=== PATIENT | female | born 1960 | race Caucasian/White ===

== ENCOUNTER 2020-04-30 19:44 | Inpatient (IN) | payer MEDICARE, OTHER ==
--- OUTSIDE RECORDS SUMMARY | 2020-04-30 19:47 | XMS REPORT | Clinical Summary ---
:1960 Author Organization [facility] Address [address] [place] [address] Care Team Providers Name Role Phone You Martinez MD Primary Care Provider Allergies Active Allergy Reactions Severity Noted Date Comments Tocilizumab 10/12/2015 Infliximab 10/12/2015 Sulfasalazine 10/12/2015 intolerant Medications Medication Sig Dispensed Refills Start End Date Status Date metoprolol Take 100 mg by 0 Acti ve succinate XL mouth daily. (TOPROL-XL) 100 MG 24 hr tablet folic acid TAKE 1 TABLET 30 tablet 2 Activ e (FOLVITE) 1 MG BY MOUTH ONCE 8 tablet DAILY metFORMIN Take 500 mg by 0 Activ e (GLUCOPHAGE) 500 mouth 2 (two) mg tablet times a day with meals. empagliflozin Take 10 mg by 0 Ac tive (JARDIANCE) 10 mg mouth daily. tablet tablet ondansetron Take 1 tablet 30 tablet 3 Acti ve (ZOFRAN) 8 MG (8 mg total) by 0 tablet mouth every 8 (eight) hours as needed for nausea or vomiting. upadacitinib Take 1 tablet 30 tablet 1 Act jayleen (Rinvoq) 15 mg (15 mg total) 0 tablet extended by mouth daily. release 24 hr ER tablet eszopiclone TAKE 1 TABLET 30 tablet 0 12/20/19 Acti ve (LUNESTA) 3 mg BY MOUTH 0 21 tablet NIGHTLY FOR 180 DAYS, TAKE IMMEDIATELY BEFORE BEDTIME rOPINIRole Take 1 tablet 30 tablet 3 Activ e (REQUIP) 2 MG (2 mg total) by 0 tablet mouth nightly. ondansetron TAKE 1 TABLET 30 tablet 0 Acti ve (ZOFRAN) 8 MG BY MOUTH EVERY 0 tablet 8 HOURS NEEDED FOR NAUSEA/VOMITING predniSONE 1-2 tablets 180 tablet 0 02/25/20 Active (DELTASONE) 5 mg daily 0 21 tablet predniSONE Take 1-2 60 tablet 1 02/24/20 Active (DELTASONE) 10 mg tablets daily 0 21 tablet as needed for flare up. acetaminophen-code chronic pain, 240 tablet 0 Active ine (TYLENOL WITH Moderate-Severe 0 21 CODEINE #4) 300-60 Chronic Pain. mg per TAKE 2 TABLETS tabletIndications: BY MOUTH 4 chronic pain, TIMES DAILY Moderate-Severe NEEDED FOR Chronic Pain MODERATE PAIN OR SEVERE PAIN FOR UP TO 30 DAYS ondansetron Take 1 tablet 30 tablet 3 07/23/19 Disc ontinued (ZOFRAN) 8 MG (8 mg total) by 9 20 (Reorder) tablet mouth every 8 (eight) hours as needed for nausea or vomiting. rOPINIRole TAKE 1 TABLET 30 tablet 0 06/17/19 Disco ntinued (REQUIP) 2 MG BY MOUTH AT 9 20 tablet BEDTIME predniSONE TAKE 4 TABLETS 120 tablet 0 06/04/19 Dis continued (DELTASONE) 10 mg BY MOUTH DAILY 9 20 tablet eszopiclone Take 1 tablet 30 tablet 3 07/13/19 Disc ontinued (LUNESTA) 3 mg (3 mg total) by 9 20 (Reorder) tablet mouth nightly for 180 days. Take immediately before bedtime predniSONE 1-2 tablets 180 tablet 1 08/25/19 Discon tinued (DELTASONE) 5 mg daily 9 20 (Re order) tablet ondansetron TAKE 1 30 tablet 0 07/23/19 Disconti nued (ZOFRAN) 8 MG TABLET(S) BY 9 20 tablet MOUTH EVERY 8 HOURS NEEDED FOR NAUSEA/VOMITING acetaminophen-code Take 1 tablet 120 tablet 0 Discontinued ine (TYLENOL WITH by mouth every 9 20 (Reorder) CODEINE #3) 300-30 6 (six) hours mg per as needed for tabletIndications: moderate pain acute pain, or severe pain chronic pain for up to 30 days .Acute Pain, chronic pain. acetaminophen-code Take 1 tablet 120 tablet 0 Discontinued ine (TYLENOL WITH by mouth every 0 20 (Dose CODEINE #3) 300-30 6 (six) hours adjustment) mg per as needed for tabletIndications: moderate pain acute pain, or severe pain chronic pain for up to 30 days .acute pain, chronic pain. codeine 60 MG Take 1 tablet 120 tablet 0 05/27/19 D iscontinued tabletIndications: (60 mg total) 0 20 (Reorder) chronic pain by mouth every 6 (six) hours as needed for moderate pain for up to 90 days .chronic pain. Max Daily Amount: 240 mg codeine 60 MG Take 1 tablet 120 tablet 0 05/27/19 D iscontinued tabletIndications: (60 mg total) 0 20 chronic pain by mouth every 6 (six) hours as needed for moderate pain or severe pain for up to 90 days .chronic pain. Max Daily Amount: 240 mg acetaminophen-code Take 1 tablet 120 tablet 0 Discontinued ine (TYLENOL WITH by mouth every 0 20 (Reorder) CODEINE #4) 300-60 4 (four) hours mg per as needed for tabletIndications: moderate pain chronic pain for up to 90 days .chronic pain. predniSONE TAKE 4 TABLETS 120 tablet 0 07/05/19 Dis continued (DELTASONE) 10 mg BY MOUTH DAILY 0 20 tablet acetaminophen-code Take 1 tablet 120 tablet 0 Discontinued ine (TYLENOL WITH by mouth every 0 20 (Reorder) CODEINE #4) 300-60 4 (four) hours mg per as needed for tabletIndications: moderate pain acute pain, for up to 90 chronic pain days .acute pain, chronic pain. rOPINIRole TAKE 1 TABLET 30 tablet 0 07/12/19 Disco ntinued (REQUIP) 2 MG BY MOUTH AT 0 20 tablet BEDTIME predniSONE TAKE 4 TABLETS 120 tablet 0 07/28/19 Dis continued (DELTASONE) 10 mg BY MOUTH DAILY 0 20 tablet acetaminophen-code Take 1 tablet 120 tablet 1 Discontinued ine (TYLENOL WITH by mouth every 0 20 (Reorder) CODEINE #4) 300-60 4 (four) hours mg per as needed for tabletIndications: moderate pain chronic pain or severe pain for up to 90 days .chronic pain. rOPINIRole TAKE 1 TABLET 30 tablet 3 01/14/20 Disco ntinued (REQUIP) 2 MG BY MOUTH AT 0 20 (Reo rder) tablet BEDTIME eszopiclone Take 1 tablet 30 tablet 1 12/20/19 Disc ontinued (LUNESTA) 3 mg (3 mg total) by 0 20 tablet mouth nightly for 180 days. Take immediately before bedtime ondansetron TAKE 1 TABLET 30 tablet 0 08/30/19 Disc ontinued (ZOFRAN) 8 MG BY MOUTH EVERY 0 20 tablet 8 HOURS NEEDED FOR NAUSEA/VOMITING predniSONE TAKE 4 TABLETS 120 tablet 0 10/15/19 Dis continued (DELTASONE) 10 mg BY MOUTH DAILY 0 20 (Reorder) tablet predniSONE 1-2 tablets 180 tablet 1 11/02/19 Discon tinued (DELTASONE) 5 mg daily 0 20 (Re order) tablet ondansetron TAKE 1 TABLET 30 tablet 0 10/06/19 Disc ontinued (ZOFRAN) 8 MG BY MOUTH EVERY 0 20 tablet 8 HOURS NEEDED FOR NAUSEA/VOMITING acetaminophen-code Take 1 tablet 120 tablet 1 Discontinued ine (TYLENOL WITH by mouth every 0 20 (Dose CODEINE #4) 300-60 4 (four) hours adjustment) mg per as needed for tabletIndications: moderate pain chronic pain or severe pain for up to 90 days .chronic pain. acetaminophen-code Take 2 tablets 240 tablet 0 10/19 Discontinued ine (TYLENOL WITH by mouth 4 0 20 CODEINE #4) 300-60 (four) times a mg per day as needed tabletIndications: for moderate chronic pain pain or severe pain for up to 30 days .chronic pain. upadacitinib Take 1 tablet 30 tablet 1 11/15/19 Dis continued (Rinvoq) 15 mg (15 mg total) 0 20 ( Reorder) tablet extended by mouth daily. release 24 hr ER tablet ondansetron TAKE 1 TABLET 30 tablet 0 10/29/19 Disc ontinued (ZOFRAN) 8 MG BY MOUTH EVERY 0 20 tablet 8 HOURS NEEDED FOR NAUSEA/VOMITING predniSONE Take 1-2 60 tablet 1 02/24/20 Discontin ued (DELTASONE) 10 mg tablets daily 0 20 (Reorder) tablet as needed for flare up. acetaminophen-code TAKE 2 TABLETS 150 tablet 0 12/06 Discontinued ine (TYLENOL WITH BY MOUTH 4 0 20 CODEINE #4) 300-60 TIMES DAILY mg per tablet NEEDED FOR MODERATE PAIN OR SEVERE PAIN FOR UP TO 30 DAYS ondansetron TAKE 1 TABLET 30 tablet 1 12/06/19 Disc ontinued (ZOFRAN) 8 MG BY MOUTH EVERY 0 20 tablet 8 HOURS NEEDED FOR NAUSEA/VOMITING predniSONE 1-2 tablets 180 tablet 1 01/17/20 Discon tinued (DELTASONE) 5 mg daily 0 20 (Re order) tablet acetaminophen-code TAKE 2 TABLETS 240 tablet 0 12/28 Discontinued ine (TYLENOL WITH BY MOUTH 4 0 20 ( Reorder) CODEINE #4) 300-60 TIMES DAILY mg per tablet NEEDED FOR MODERATE PAIN OR SEVERE PAIN FOR UP TO 30 DAYS ondansetron TAKE 1 TABLET 30 tablet 0 01/11/20 Disc ontinued (ZOFRAN) 8 MG BY MOUTH EVERY 0 20 tablet 8 HOURS NEEDED FOR NAUSEA/VOMITING fluconazole Take 1 tablet 3 tablet 0 12/12/19 Expi red (Diflucan) 150 MG (150 mg total) 0 20 tablet by mouth daily for 3 days. 1 daily for 3 days acetaminophen-code chronic pain. 240 tablet 0 Discontinued ine (TYLENOL WITH TAKE 2 TABLETS 0 20 (Reorder) CODEINE #4) 300-60 BY MOUTH 4 mg per TIMES DAILY tabletIndications: NEEDED FOR chronic pain MODERATE PAIN OR SEVERE PAIN FOR UP TO 30 DAYS ondansetron TAKE 1 TABLET 30 tablet 0 02/23/20 Disc ontinued (ZOFRAN) 8 MG BY MOUTH EVERY 0 20 tablet 8 HOURS NEEDED FOR NAUSEA/VOMITING predniSONE 1-2 tablets 180 tablet 0 02/24/20 Discon tinued (DELTASONE) 5 mg daily 0 20 (Re order) tablet acetaminophen-code chronic pain. 240 tablet 0 Discontinued ine (TYLENOL WITH TAKE 2 TABLETS 0 20 (Reorder) CODEINE #4) 300-60 BY MOUTH 4 mg per TIMES DAILY tabletIndications: NEEDED FOR chronic pain MODERATE PAIN OR SEVERE PAIN FOR UP TO 30 DAYS acetaminophen-code chronic pain. 240 tablet 0 Discontinued ine (TYLENOL WITH TAKE 2 TABLETS 0 20 CODEINE #4) 300-60 BY MOUTH 4 mg per TIMES DAILY tabletIndications: NEEDED FOR chronic pain MODERATE PAIN OR SEVERE PAIN FOR UP TO 30 DAYS promethazine Take 1 tablet 14 tablet 0 04/13/20 Exp ired (PHENERGAN) 12.5 (12.5 mg total) 0 20 MG tablet by mouth every 6 (six) hours as needed for nausea or vomiting for up to 30 days. 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 10/12/2015 factor GERD (gastroesophageal reflux disease) 10/12/2015 Fatigue 10/12/2015 Encounters Date Type Specialty Care Team Description 04/17/2020 Refill Rheumatology Ayde Matthews MD Rheumatoi d arthritis involving multi ple sites with positive r heumatoid factor (HCC) (P rimary Dx) 03/16/2020 Documentation Rheumatology Ayde Matthews MD 03/14/2020 Orders Only Rheumatology Ayde Matthews MD 03/14/2020 Telephone Rheumatology Luci Isabel MA 02/24/2020 Refill Rheumatology Luci Isabel MA 02/23/2020 Refill Rheumatology Ayde Matthews MD 01/26/2020 Refill Rheumatology Luci Isabel MA 01/17/2020 Telephone Rheumatology Luci Isabel MA 01/14/2020 Refill Rheumatology Luci Isabel MA 01/12/2020 Telephone Rheumatology Luci Isabel MA 01/11/2020 Refill Rheumatology Ayde Matthews MD 12/29/2019 Telephone Rheumatology Luci Isabel MA 12/20/2019 Refill Rheumatology Ayde Matthews MD 12/08/2019 Telephone Rheumatology Luci Isabel MA 12/07/2019 Refill Rheumatology Ayde Matthews MD 12/06/2019 Refill Rheumatology Ayde Matthews MD 12/03/2019 Telephone Rheumatology Luci Isabel MA 12/01/2019 Refill Rheumatology Ayde Matthews MD 11/25/2019 Telephone Rheumatology Luci Isabel MA Dysuria (Maia nahum Dx) 11/15/2019 Refill Rheumatology Luci Isabel MA 11/02/2019 Refill Rheumatology Luci Isabel MA 11/01/2019 Telephone Rheumatology Alfonzo Barragan MA 10/29/2019 Refill Rheumatology Ayde Matthews MD 10/25/2019 Refill Rheumatology Ayde Matthews MD 10/20/2019 Refill Rheumatology Ayde Matthews MD 10/15/2019 Refill Rheumatology Luci Isabel MA 10/06/2019 Refill Rheumatology Ayde Matthews MD 09/22/2019 Telephone Rheumatology Alfonzo Barragan MA 09/21/2019 Documentation Rheumatology [place], Sample: Rinvoq 15 mg AIDAN Rodriguez (Sample: Rinvoq 15 mg Lot # [id number], Exp Date 10/09/2020 mailed to pt. ~KW~) 09/21/2019 Orders Only Rheumatology Ayde Matthews MD 09/21/2019 Orders Only Rheumatology Ayde Matthews MD 09/21/2019 Telephone Rheumatology Michael Rios MA 09/20/2019 Telephone Rheumatology Luci Isabel MA 09/01/2019 Telephone Consult Rheumatology Ayde Matthews MD Rheu matoid arthritis involving multiple sites with positive rheumatoid factor (HCC) (Primary Dx); Other chronic p ain; Other secondary osteoarthritis of left hip; Immunosuppresse d status (HCC); High risk medic ation use; Controlled subs tance agreement signed 08/30/2019 Refill Rheumatology Ayde Matthews MD 08/25/2019 Refill Rheumatology Luci Isabel MA 08/25/2019 Documentation Rheumatology Luci Isabel MA Rinvoq Samp le Given 08/20/2019 Telephone Rheumatology Luci Isabel MA 07/28/2019 Refill Rheumatology Ayde Matthews MD 07/23/2019 Refill Rheumatology Michael Rios MA 07/23/2019 Refill Rheumatology Ayde Matthews MD 07/13/2019 Telephone Rheumatology Luci Isabel MA 07/13/2019 Telephone Rheumatology Luci Isabel MA 07/10/2019 Refill Rheumatology Ayde Matthews MD 07/07/2019 Orders Only Rheumatology Ayde Matthews MD 07/05/2019 Refill Rheumatology Ayde Matthews MD 07/02/2019 Telephone Rheumatology Alfonzo Barragan MA 06/17/2019 Refill Rheumatology Ayde Matthews MD 06/17/2019 Refill Rheumatology Michael Rios MA 06/16/2019 Telephone Rheumatology Michael Rios MA 06/04/2019 Refill Rheumatology Ayde Matthews MD 05/27/2019 Telephone Rheumatology Drew Bonilla MA 05/17/2019 Refill Rheumatology Luci Isabel MA after 04/30/2019 Immunizations Name Administration Dates Next Due PPD Test 06/16/2014 Surgical History Surgery Date Site/Laterality Comments TOTAL HIP ARTHROPLASTY replaceme nt TOTAL KNEE ARTHROPLASTY 07/04/2015 - 08/03/2015 Right TOTAL KNEE ARTHROPLASTY 02/03/2016 - 03/04/2016 Right Medical History Medical History Date Comments Sarcoidosis Gastric ulcer Family History Medical History Relation Name Comments Other Mother rheumatism Diabetes Other GM Hypertension Other GM Other Other GM cad Rheum arthritis Other GM Relation Name Status Comments Mother Other GM Other Social History Tobacco Use Types Packs/Day Years Used Date Former Smoker 2 35 Smokeless Tobacco: Never Used Alcohol Use Drinks/Week oz/Week Comments No not found Sex Assigned at Date Recorded Not on file Job Start Date Occupation Industry Not on file Not on file Not on file Last Filed Vital Signs Not on file Plan of Treatment Date Type Specialty Care Team Description 05/29/2020 Telephone [place] [id number] [address] Health Maintenance Due Date Last Done Comments COVID-19 VACCINE (#1) 1975 CERVICAL CANCER SCREENING 11/06/1980 BREAST CANCER SCREENING 11/06/2009 COLONOSCOPY SCREENING 11/06/2009 SHINGLES VACCINES (#1) 11/06/2009 INFLUENZA VACCINE 12/04/2019 Results Not on fileafter 04/30/2019 Insurance Payer Benefit Plan / Subscriber ID Effective Dates Phone Addre ss Type Group HUMANA MEDICARE HUMANA HMO GOLD [id number] 2019-Present HMO PLUS MEDICARE Advance Directives For more information, please contact: [phone] Type Date Recorded Patient Manufacturing Process Engineer Explanati on Advance Directives, Living Will and Medical Power of Block Setter [place]
--- OUTSIDE RECORDS SUMMARY | 2020-04-30 19:48 | XMS REPORT | Continuity of Care Document ---
:1960 Author Organization [facility] t Address [address] [place] [address] Care Team Providers Name Role Phone You Martinez MD Primary Care Physician Sebastien ANSARI Attending Clinician Chalo BERMUDEZ Attending Clinician Unavailable Claudia Barragan MA Attending Clinician Unavailable Gabriel BERMUDEZ Attending Clinician Unavailable Onelia Bonilla MA Attending Clinician Unavailable Payers Payer Name Policy Type Policy Effective Date Expiration Date Sour ce Number HUMANA [id number] 2019 [place] MEDICAREHUMANA O 00:00:00 [facility] GOLD PLUS [id number]/-PresentHMO Problems Condition Condition Condition Status Onset Resolution Last Treating Co mments Source Name Details Category Date Date Treatment Clinician Date Osteoarthr Osteoarthr Disease Active [place] itis of itis of 08-31 [facility] left hip left hip 00:00: st 00 Cough Cough Disease Active 2017-05 [place] 05-06 [facility] 00:00: st 00 Abnormal Abnormal Disease Active 2017-05 [place] chest chest 05-06 [facility] x-ray x-ray 00:00: st 00 Elevated Elevated Disease Active 2017-05 [place] liver liver 05-05 [facility] enzymes enzymes 00:00: st 00 Chronic Chronic Disease Active [place] pain pain 4-24 [facility] 00:00: st 00 Rheumatoid Rheumatoid Disease Active [place] arthritis arthritis 10-11 [facility] involving involving 00:00: st multiple multiple 00 sites with sites with positive positive rheumatoid rheumatoid factor factor GERD GERD Disease Active [place] (gastroeso (gastroeso 10-11 [facility] phageal phageal 00:00: st reflux reflux 00 disease) disease) Fatigue Fatigue Disease Active [place] 10-11 [facility] 00:00: st 00 Allergies, Adverse Reactions, Alerts Allergy Allergy Status Severity Reaction(s) Onset Inactive Treating Comm ents Source Name Type Date Date Clinician Tocilizu Propensi Active [place] mab ty to 10-11 [facility] adverse 00:00: st reaction 00 s to drug Inflixim Propensi Active [place] ab ty to 10-11 [facility] adverse 00:00: st reaction 00 s to drug Sulfasal Propensi Active intoleran [place] [facility] azine ty to 10-11 t [facility] adverse 00:00: st reaction 00 s to drug Family History Family Member Diagnosis Comments Start Date Stop Date Source Natural mother Other [facility]ist Other Diabetes [place] [facility] Other Hypertension [place] [facility] Other Other [place] [facility] Social History Social Habit Start Date Stop Date Quantity Comments Source [facility] Cigarettes smoked 2019-03-23 2019-03-23 [place] [facility] current (pack per 00:00:00 00:00:00 day) - Reported Cigarette 2019-03-23 2019-03-23 [place] [facility] pack-years 00:00:00 00:00:00 Tobacco use and 2019-03-23 2019-03-23 Never used [facility] ethodist exposure 00:00:00 00:00:00 Alcohol intake 2019-03-23 2019-03-23 Current [facility]odist 00:00:00 00:00:00 non-drinker of alcohol (finding) Alcohol Comment 2015-10-12 2015-10-12 not found [facility] [employer] 00:00:00 00:00:00 Smoking Status Start Date Stop Date Source Former smoker 2019-03-23 00:00:00 2019-03-23 00:00:00 [place] [facility] Medications Ordered Filled Start Stop Current Ordering Indication Dosage Frequency Signature Comments Components Source Medication Medication Date Date Medication? Clinician (SIG) Name Name acetaminoph 2019-05- Yes chronic chronic [place] en-codeine 2-14 12-14 pain pain, [facility] (TYLENOL 00:00: 23:59 Moderate-S st WITH 00 :00 evere CODEINE #4) Chronic 300-60 mg Pain. TAKE per tablet 2 TABLETS BY MOUTH 4 TIMES DAILY NEEDED FOR MODERATE PAIN OR SEVERE PAIN FOR UP TO 30 DAYS promethazin 2019-05- No 12.5mg Q6H Take 1 [place] e 1-10 12-10 tablet [facility] (PHENERGAN) 00:00: 23:59 (12.5 mg s t 12.5 MG 00 :00 total) by tablet mouth every 6 (six) hours as needed for nausea or vomiting for up to 30 days. predniSONE 2019-05- Yes 1-2 [place] (DELTASONE) 0-22 10-23 tablets [facility] 5 mg tablet 00:00: 23:[address] 00 :00 predniSONE 2019-05- Yes Take 1-2 [place] (DELTASONE) 0-22 10-22 tablets [facility] 10 mg 00:00: 23:[address] tablet 00 :00 needed for flare up. acetaminoph 2019-05- No chronic chronic [place] en-codeine 0- 12-14 pain pain. TAKE [facility] (TYLENOL 00:00: 00:[address] WITH 00 :00 BY MOUTH 4 CODEINE #4) TIMES 300-60 mg DAILY per tablet NEEDED FOR MODERATE PAIN OR SEVERE PAIN FOR UP TO 30 DAYS ondansetron 2019-05 Yes TAKE 1 [place] (ZOFRAN) 8 0-21 TABLET BY [facility] MG tablet 00:00: MOUTH st 00 EVERY 8 HOURS NEEDED FOR NAUSEA/VOM ITING acetaminoph 2019- No chronic chronic [place] en-codeine 9- 10-22 pain pain. TAKE [facility] (TYLENOL 00:00: 00:[address] WITH 00 :00 BY MOUTH 4 CODEINE #4) TIMES 300-60 mg DAILY per tablet NEEDED FOR MODERATE PAIN OR SEVERE PAIN FOR UP TO 30 DAYS metoprolol Yes 100mg QD Take 100 [place] succinate 9-14 mg by [facility] XL 17:31: mouth st (TOPROL-XL) 13 daily. 100 MG 24 hr tablet metFORMIN Yes 500mg Q.5D Take 500 [place] (GLUCOPHAGE 9-14 mg by [facility] ) 500 mg 17:31: mouth 2 st tablet 13 (two) times a day with meals. empaglifloz Yes 10mg QD Take 10 mg [place] in 9-14 by mouth [facility] (JARDIANCE) 17:31: daily. st 10 mg 13 tablet tablet predniSONE 1-2 [place] (DELTASONE) 9-14 10-22 tablets [facility] 5 mg tablet 00:00: 00:[address] 00 :00 rOPINIRole Yes 2mg QD Take 1 [place] (REQUIP) 2 9-11 tablet (2 [facility] MG tablet 00:00: mg total) st 00 by mouth nightly. ondansetron 2019- TAKE 1 [place] (ZOFRAN) 8 01-10- TABLET BY Met hodi MG tablet 00:00: 00:[address] 00 :00 EVERY 8 HOURS NEEDED FOR NAUSEA/VOM ITING acetaminoph 2019- No chronic chronic [place] en-codeine 12-28 pain pain. TAKE [facility] (TYLENOL 00:00: 00:[address] WITH 00 :00 BY MOUTH 4 CODEINE #4) TIMES 300-60 mg DAILY per tablet NEEDED FOR MODERATE PAIN OR SEVERE PAIN FOR UP TO 30 DAYS eszopiclone 2020- TAKE 1 [place] (LUNESTA) 3 12-19 TABLET BY [facility] mg tablet 00:00: 23:[address] 00 :00 NIGHTLY FOR 180 DAYS, TAKE IMMEDIATEL Y BEFORE BEDTIME fluconazole No 150mg QD Take 1 [place] (Diflucan) 12-08 tablet Method i 150 MG 00:00: 23:59 ([address] tablet 00 :00 total) by mouth daily for 3 days. 1 daily for 3 days acetaminoph 2019- No TAKE 2 [place] en-codeine 12-06 TABLETS BY [facility] (TYLENOL 00:00: 00:[address] WITH 00 :00 TIMES CODEINE #4) DAILY 300-60 mg NEEDED FOR per tablet MODERATE PAIN OR SEVERE PAIN FOR UP TO 30 DAYS ondansetron 2019- No TAKE 1 [place] (ZOFRAN) 8 12-05 TABLET BY Met hodi MG tablet 00:00: 00:[address] 00 :00 EVERY 8 HOURS NEEDED FOR NAUSEA/VOM ITING upadacitini Yes 15mg QD Take 1 [place] (Rinvoq) 7-13 tablet (15 [facility] 15 mg 00:00: mg total) st tablet 00 by mouth extended daily. release 24 hr ER tablet predniSONE 2019- No 1-2 [place] (DELTASONE) 6-30 09-14 tablets [facility] 5 mg tablet 00:00: 00:[address] 00 :00 ondansetron 2019- No TAKE 1 [place] (ZOFRAN) 8 6- 08-03 TABLET BY Met hodi MG tablet 00:00: 00:[address] 00 :00 EVERY 8 HOURS NEEDED FOR NAUSEA/VOM ITING acetaminoph 2019- No TAKE 2 [place] en-codeine 6- 08-04 TABLETS BY Me [facility] (TYLENOL 00:00: 00:[address] WITH 00 :00 TIMES CODEINE #4) DAILY 300-60 mg NEEDED FOR per tablet MODERATE PAIN OR SEVERE PAIN FOR UP TO 30 DAYS predniSONE 2019- No Take 1-2 [place] (DELTASONE) 6-12 10-22 tablets [facility] 10 mg 00:00: 00:[address] tablet 00 :00 needed for flare up. ondansetron 2019- No TAKE 1 [place] (ZOFRAN) 8 6- 06-26 TABLET BY Met hodi MG tablet 00:00: 00:[address] 00 :00 EVERY 8 HOURS NEEDED FOR NAUSEA/VOM ITING upadacitini 2019- No 15mg QD Take 1 [place] (Rinvoq) 5-19 07-13 tablet (15 [facility] 15 mg 00:00: 00:00 mg total) st tablet 00 :00 by mouth extended daily. release 24 hr ER tablet acetaminoph 2019- No chronic 2{tbl} Q.25D Take 2 [place] en-codeine 5-19 06-17 pain tablets by Me th[facility]ha[facility] (TYLENOL 00:00: 00:[address] WITH 00 :00 (four) CODEINE #4) times a 300-60 mg day as per tablet needed for moderate pain or severe pain for up to 30 days .chronic pain. acetaminoph 2019- No chronic 1{tbl} Q4H Take 1 [place] en-codeine 4-29 05-19 pain tablet by Met [facility]odi (TYLENOL 00:00: 00:[address] WITH 00 :00 every 4 CODEINE #4) (four) 300-60 mg hours as per tablet needed for moderate pain or severe pain for up to 90 days .chronic pain. ondansetron 2019- No TAKE 1 [place] (ZOFRAN) 8 4-27 06-03 TABLET BY Met hodi MG tablet 00:00: 00:[address] 00 :00 EVERY 8 HOURS NEEDED FOR NAUSEA/VOM ITING predniSONE 2019-2019- No 1-2 [place] (DELTASONE) 4-22 06-30 tablets [facility] 5 mg tablet 00:00: 00:[address] 00 :00 predniSONE 2019-2019- No TAKE 4 [place] (DELTASONE) 3-25 06-12 TABLETS BY M ethodi 10 mg 00:00: 00:[address] tablet 00 :00 DAILY ondansetron 2019- Yes 8mg Q8H Take 1 [place] (ZOFRAN) 8 3-20 tablet (8 [facility] MG tablet 00:00: mg total) st 00 by mouth every 8 (eight) hours as needed for nausea or vomiting. ondansetron 2019- No TAKE 1 [place] (ZOFRAN) 8 3-20 -27 TABLET BY Met hodi MG tablet 00:00: 00:[address] 00 :00 EVERY 8 HOURS NEEDED FOR NAUSEA/VOM ITING eszopiclone 2019- No 3mg QD Take 1 [place] (LUNESTA) 3 3-10 08-17 tablet (3 [facility] mg tablet 00:00: 00:00 mg total) st 00 :00 by mouth nightly for 180 days. Take immediatel y before bedtime rOPINIRole 2019-2019- No TAKE 1 [place] (REQUIP) 2 3-01 11-11 TABLET BY Met hodi MG tablet 00:00: 00:[address] 00 :00 BEDTIME acetaminoph 2019-2019- No chronic 1{tbl} Q4H Take 1 [place] en-codeine 3-08 06-29 pain tablet by Met [facility] (TYLENOL 00:00: 00:[address] WITH 00 :00 every 4 CODEINE #4) (four) 300-60 mg hours as per tablet needed for moderate pain or severe pain for up to 90 days .chronic pain. predniSONE 2019-2019- No TAKE 4 [place] (DELTASONE) 3- TABLETS BY M ethodi 10 mg 00:00: 00:[address] tablet 00 :00 DAILY rOPINIRole 2019-2019- No TAKE 1 [place] (REQUIP) 2 06-17- TABLET BY Met [facility] MG tablet 00:00: 00:[address] 00 :00 BEDTIME acetaminoph 2019-2019- No chronic 1{tbl} Q4H Take 1 [place] en-codeine 06-17- pain tablet by Met [facility] (TYLENOL 00:00: 00:[address] WITH 00 :00 every 4 CODEINE #4) (four) 300-60 mg hours as per tablet needed for moderate pain for up to 90 days .acute pain, chronic pain. predniSONE 2019-2019- No TAKE 4 [place] (DELTASONE) 06-04- TABLETS BY M ethodi 10 mg 00:00: 00:[address] tablet 00 :00 DAILY acetaminoph 2019- No chronic 1{tbl} Q4H Take 1 [place] en-codeine 05-27 pain tablet by [facility] (TYLENOL 00:00: 00:[address] WITH 00 :00 every 4 CODEINE #4) (four) 300-60 mg hours as per tablet needed for moderate pain for up to 90 days .chronic pain. codeine 60 2019- No chronic 60mg Q6H Take 1 [place] MG tablet 05-27 pain tablet (60 [facility]odi 00:00: 00:00 mg total) st 00 :00 by mouth every 6 (six) hours as needed for moderate pain for up to 90 days .chronic pain. Max Daily Amount: 240 mg codeine 60 2019-2019- No chronic 60mg Q6H Take 1 [place] MG tablet 05-27 pain tablet (60 Met [facility]odi 00:00: 00:00 mg total) st 00 :00 by mouth every 6 (six) hours as needed for moderate pain or severe pain for up to 90 days .chronic pain. Max Daily Amount: 240 mg acetaminoph 2019-2019- No chronic 1{tbl} Q6H Take 1 [place] en-codeine 1-13 01-23 pain tablet by [facility] [place] (TYLENOL 00:00: 00:[address] WITH 00 :00 every 6 CODEINE #3) (six) 300-30 mg hours as per tablet needed for moderate pain or severe pain for up to 30 days .acute pain, chronic pain. acetaminoph 2018-05- No chronic 1{tbl} Q6H Take 1 [place] en-codeine 06-22 pain tablet by Met [place] (TYLENOL 00:00: 00:[address] WITH 00 :00 every 6 CODEINE #3) (six) 300-30 mg hours as per tablet needed for moderate pain or severe pain for up to 30 days .Acute Pain, chronic pain. ondansetron 2018-05- No TAKE 1 [place] (ZOFRAN) 8 06-17-20 TABLET(S) [facility] MG tablet 00:00: 00:[address] 00 :00 EVERY 8 HOURS NEEDED FOR NAUSEA/VOM ITING predniSONE 2018-05- No 1-2 [place] (DELTASONE) 2-22 tablets [facility] 5 mg tablet 00:00: 00:[address] 00 :00 eszopiclone 2018-05- No 3mg QD Take 1 [place] (LUNESTA) 3 05-23 03-10 tablet (3 [facility] mg tablet 00:00: 00:00 mg total) st 00 :00 by mouth nightly for 180 days. Take immediatel y before bedtime rOPINIRole 2018-05- No TAKE 1 [place] (REQUIP) 2 05-21 TABLET BY Met [facility] MG tablet 00:00: 00:[address] 00 :00 BEDTIME predniSONE 2018-05- No TAKE 4 [place] (DELTASONE) 05-21 TABLETS BY M ethodi 10 mg 00:00: 00:[address] tablet 00 :00 DAILY ondansetron 2019- No 8mg Q8H Take 1 [place] (ZOFRAN) 8 01-07-20 tablet (8 [facility] MG tablet 00:00: 00:00 mg total) st 00 :00 by mouth every 8 (eight) hours as needed for nausea or vomiting. folic acid Yes TAKE 1 [place] (FOLVITE) 1 6-12 TABLET BY Met [facility] MG tablet 00:00: MOUTH ONCE st 00 DAILY Immunizations Ordered Immunization Filled Immunization Date Status Commen ts Source Name Name PPD Test 2014-06-16 Completed [place] 00:00:00 [facility] Procedures This patient has no known procedures. Plan of Care Planned Activity Planned Date Details Comments Source Future Scheduled 2019-12-04 INFLUENZA VACCINE [place] [facility] Test 00:00:00 [code = INFLUENZA VACCINE] Future Scheduled 2009-11-06 BREAST CANCER [facility] thodist Test 00:00:00 SCREENING [code = BREAST CANCER SCREENING] Future Scheduled 2009-11-06 COLONOSCOPY SCREENING [place] [facility] Test 00:00:00 [code = COLONOSCOPY SCREENING] Future Scheduled 2009-11-06 SHINGLES VACCINES [place] [facility] Test 00:00:00 (#1) [code = SHINGLES VACCINES (#1)] Future Scheduled 1980-11-06 Screening for [facility]ist Test 00:00:00 malignant neoplasm of cervix (procedure) [code = 157064647] Future Scheduled 1975 COVID-19 VACCINE (#1) [place] [facility] Test 00:00:00 [code = COVID-19 VACCINE (#1)] Encounters Start End Encounter Admission Attending Care Care Encounter Source Date/Time Date/Time Type Type Clinicians Facility Department ID 2019-09-01 2019-09-01 Outpatient [facility] [id number] [place] 00:00:00 00:00:00 [facility] [id number] Results This patient has no known results.
[2020-04-30 21:29] LABS: Absolute Lymphocytes (CBC) 2.7 K/uL (0.7-4.9); Hematocrit 55.4 % (36.0-45.0); Lymphocytes % 9.2 % (15.3-44.8); MPV 8.6 fL (7.6-11.3); RBC Red Blood Cell Count 6.26 M/uL (3.86-4.86)
[2020-04-30] MEDS ORDERED: NA CHLORIDE 0.9% 1,000 ML ONE (21:29)
[2020-04-30 21:46] LABS: ALT/SGPT 25 U/L (12-78); AST/SGOT 12 U/L (15-37); Albumin 3.6 g/dL (3.4-5.0); Alkaline Phosphatase 385 U/L (45-117); BUN Blood Urea Nitrogen 26 mg/dL (7-18); Bicarbonate 25 mmol/L (21-32); Bilirubin Direct 0.3 mg/dL (0-0.2); Bilirubin Total 1.2 mg/dL (0.2-1.0); Lipase 564 U/L (73-393); Potassium 3.1 mmol/L (3.5-5.1); Protein, Total 8.3 g/dL (6.4-8.2); Sodium Level 132 mmol/L (136-145)
[2020-04-30 21:48] LABS: Glucose Level 472 mg/dL (74-106)
[2020-04-30] MEDS ORDERED: KCL 20 MEQ/100 mL IVPB 20 MEQ/100 ML BAG IV ONE (22:04)
[2020-04-30 22:07] LABS: Blood Morphology Comment NOT SEEN (NOT SEEN); Platelet Estimate ADEQ
--- NOTE | 2020-04-30 22:13 | EDPHYS ---
Physician Documentation [facility] Name: Janet Arredondo Age: 59 yrs Sex: Female : 1960 Arrival Date: 04/30/2020 Time: 19:48 Bed 7 Private MD: ED Physician Angelo Carter HPI: 05/01 02:58 This 59 yrs old Female presents to ER via EMS with complaints of tw4 Nausea/Vomiting. 02:58 The patient presents to the emergency department with nausea, vomiting, Possible tw4 causes: unknown. The symptoms are aggravated by nothing. The symptoms are alleviated by nothing. Severity of symptoms: At their worst the symptoms were moderate in the emergency department the symptoms are unchanged. Historical: - Allergies: 04/30 20:05 No Known Allergies; lp1 - Home Meds: 20:05 ropinirole 2 mg oral tab nightly [Active]; prednisone 5 mg Oral tab once daily lp1 [Active]; metoprolol tartrate 100 mg Oral tab 1 tab once daily [Active]; Tylenol #4 Oral [Active]; - PMHx: 05/01 06:46 Rheumatoid Arthritis; lp1 - PSHx: 04/30 20:05 None; lp1 - Immunization history:: Adult Immunizations up to date. - Social history:: Smoking status: Patient reports the use of cigarette tobacco products. ROS: 05/01 03:00 Constitutional: Negative for fever, chills, and weight loss, Eyes: Negative for injury, tw4 pain, redness, and discharge, Cardiovascular: Negative for chest pain, palpitations, and edema, Respiratory: Negative for shortness of breath, cough, wheezing, and pleuritic chest pain, Back: Negative for injury and pain, MS/Extremity: Negative for injury and deformity, Skin: Negative for injury, rash, and discoloration, Neuro: Negative for headache, weakness, numbness, tingling, and seizure. Abdomen/GI: Positive for abdominal pain, nausea and vomiting, nausea, vomiting, Negative for nausea, vomiting, and diarrhea, diarrhea, constipation, abdominal cramps, abdominal distension, anorexia, dysphagia, hematemesis, black/tarry stool, rectal pain, rectal bleeding, bowel incontinence, flatulence. Exam: 03:00 Constitutional: This is a well developed, well nourished patient who is awake, alert, tw4 and in no acute distress. Head/Face: Normocephalic, atraumatic. Chest/axilla: Normal chest wall appearance and motion. Nontender with no deformity. No lesions are appreciated. Cardiovascular: Regular rate and rhythm with a normal S1 and S2. No gallops, murmurs, or rubs. Normal PMI, no JVD. No pulse deficits. Respiratory: Lungs have equal breath sounds bilaterally, clear to auscultation and percussion. No rales, rhonchi or wheezes noted. No increased work of breathing, no retractions or nasal flaring. Abdomen/GI: Soft, non-tender, with normal bowel sounds. No distension or tympany. No guarding or rebound. No evidence of tenderness throughout. Skin: Warm, dry with normal turgor. Normal color with no rashes, no lesions, and no evidence of cellulitis. MS/ Extremity: Pulses equal, no cyanosis. Neurovascular intact. Full, normal range of motion. Neuro: Awake and alert, GCS 15, oriented to person, place, time, and situation. Cranial nerves II-XII grossly intact. Motor strength 5/5 in all extremities. Sensory grossly intact. Cerebellar exam normal. Normal gait. Vital Signs: 04/30 19:45 BP 154 / 101; Pulse 94; Resp 20; Temp 99(O); Pulse Ox 100% on R/A; Weight 65.77 kg; lp1 20:30 BP 155 / 88; Pulse 119; Resp 20; Pulse Ox 98% on R/A; lp1 21:00 BP 154 / 85; Pulse 106; Resp 20; Pulse Ox 98% on R/A; lp1 22:00 BP 148 / 79; Pulse 93; Resp 18; Pulse Ox 99% on R/A; lp1 22:30 BP 138 / 87; Pulse 104; Resp 20; Temp 99.9(C); Pulse Ox 100% on R/A; lp1 23:30 BP 168 / 91; Pulse 91; Resp 20; Temp 100.4(C); Pulse Ox 99% on R/A; lp1 05/01 00:15 BP 146 / 95; Pulse 92; Resp 21; Temp 100.1(C); Pulse Ox 99% on R/A; lp1 MDM: 04/30 19:50 Patient medically screened. tw4 05/01 03:00 Differential diagnosis: Nonspecific abd pain, gastritis, cholecystitis, pancreatitis. tw Data reviewed: vital signs, nurses notes. Data interpreted: Pulse oximetry: Interpretation: normal. Counseling: I had a detailed discussion with the patient and/or guardian regarding: the historical points, exam findings, and any diagnostic results supporting the discharge/admit diagnosis. Special discussion: I discussed with the patient/guardian in detail that at this point there is no indication for admission to the hospital. It is understood, however, that if the symptoms persist or worsen the patient needs to return immediately for re-evaluation. 04/30 19:49 Order name: Basic Metabolic Panel; Complete Time: 23:07 04/30 23:07 Interpretation: Normal except: NA 132; CL 82; K 3.1; GLUC 472; BUN 26. 04/30 19:49 Order name: CBC with Diff; Complete Time: 23:07 04/30 23:08 Interpretation: Normal except: WBC 29.3; HCT 55.4; HGB 17.7; RBC 6.26; MCV 88.5; MCH tw4 28.3; LYM% 9.2; BASO% 10.0; NEUT A 21.6. 04/30 19:49 Order name: Hepatic Function; Complete Time: 23:07 04/30 23:08 Interpretation: Normal except: AST 12; ALK 385; BILIT 1.2; TP 8.3; BILID 0.3; A/G 0.8; tw4 GLOB 4.7. 04/30 19:49 Order name: Lipase; Complete Time: 23:07 04/30 23:08 Interpretation: Normal except: LIP 564. 04/30 19:49 Order name: Ketone, Serum; Complete Time: 23:07 04/30 23:08 Interpretation: Normal except: ACET SMALL. 04/30 21:15 Order name: Osmolality, Serum; Complete Time: 23:07 nj04/30 23:09 Interpretation: Abnormal: OSMOL 308. 04/30 21:15 Order name: Blood Culture Adult (2) 04/30 21:15 Order name: Procalcitonin; Complete Time: 23:07 04/30 21:15 Order name: Lactate; Complete Time: 23:07 04/30 21:48 Order name: Manual Differential; Complete Time: 23:07 [facility] 04/30 23:09 Interpretation: Abnormal: SEGS 84; BANDS [F] 4; LYM 6. 4 04/30 22:31 Order name: SARS-COV-2 RT PCR; Complete Time: 23:07 [facility] 04/30 22:43 Order name: Urine Dipstick--Ancillary (enter results); Complete Time: 23:07 [facility] 05/01 00:18 Order name: BMP [facility] 05/01 01:36 Order name: Glucose, Ancillary Testing; Complete Time: 01:40 [facility] 05/01 01:42 Order name: Basic Metabolic Panel [facility] 05/01 02:26 Order name: Glucose, Ancillary Testing [facility] 05/01 02:44 Order name: Urine Microscopic Only [facility] 05/01 03:38 Order name: Glucose, Ancillary Testing [facility] 05/01 04:39 Order name: Glucose, Ancillary Testing [facility] 05/01 05:35 Order name: Glucose, Ancillary Testing [facility] 05/01 06:17 Order name: CBC with Automated Diff [facility] 05/01 06:25 Order name: Calcium Level [facility] 05/01 06:25 Order name: Lipid Profile [facility] 05/01 06:25 Order name: Magnesium [facility] 05/01 06:48 Order name: Glucose, Ancillary Testing [facility] 05/01 06:58 Order name: Basic Metabolic Panel [facility] 05/01 07:25 Order name: Hemoglobin A1c [facility] 05/01 07:44 Order name: Glucose, Ancillary Testing [facility] 05/01 08:38 Order name: Glucose, Ancillary Testing [facility] 04/30 19:49 Order name: IV Saline Lock; Complete Time: 22:[address] [facility] 04/30 19:49 Order name: Labs collected and sent; Complete Time: 22:[address] [facility] 04/30 20:06 Order name: EKG - Nurse/Tech; Complete Time: 20:06 [facility] 04/30 20:06 Order name: EKG; Complete Time: 20:07 [facility] 04/30 21:15 Order name: Urine Dipstick-Ancillary (obtain specimen); Complete Time: 22:44 [facility] 04/30 21:15 Order name: Chest Single View XRAY [facility] 04/30 22:07 Order name: Dyer; Complete Time: 22:41 [facility] 05/01 08:57 Order name: Basic Metabolic Panel [facility] 05/01 09:41 Order name: Glucose, Ancillary Testing [facility] 05/01 10:46 Order name: Glucose, Ancillary Testing [facility] 05/01 11:35 Order name: Glucose, Ancillary Testing [facility] 05/01 12:43 Order name: Glucose, Ancillary Testing [facility] 05/01 13:38 Order name: Glucose, Ancillary Testing [facility] 05/01 14:32 Order name: Glucose, Ancillary Testing [facility] 05/01 15:43 Order name: Glucose, Ancillary Testing [facility] 05/01 17:07 Order name: Glucose, Ancillary Testing [facility] 05/01 17:39 Order name: Glucose, Ancillary Testing [facility] 05/01 21:10 Order name: Glucose, Ancillary Testing [facility] 05/02 05:31 Order name: Glucose, Ancillary Testing [facility] 05/02 05:43 Order name: CBC with Automated Diff [facility] 05/02 05:46 Order name: Basic Metabolic Panel [facility] 05/02 05:46 Order name: Magnesium [facility] 05/02 07:34 Order name: Urine Culture [facility] 05/02 07:39 Order name: Glucose, Ancillary Testing [facility] 04/30 22:11 Order name: Misc. Order: repeat BMP after potassium infused and call Tj cabrera; nico Complete Time: 01:14 Administered Medications: 04/30 21:10 Drug: NS 0.9% 1000 ml Route: IV; Rate: 1 bolus; Site: right forearm; lp1 05/01 00:20 Follow up: IV Status: Completed infusion; IV Intake: 1000ml lp1 04/30 22:02 Drug: Potassium Chloride 20 mEq Route: IV; Rate: per protocol; Site: left upper arm; lp1 05/01 00:00 Follow up: IV Status: Completed infusion lp1 04/30 22:10 CANCELLED (Other Intervention Used): NS 0.45 % with KCl 20 mEq/L 1000 ml IV at 125 la1 ml/hr once 22:45 Drug: Rocephin 1 grams Route: IV; Rate: calculated rate; Site: left upper arm; lp1 23:45 Follow up: IV Status: Completed infusion; IV Intake: 10ml lp1 05/01 00:19 Not Given (Order changed per DONOVAN Parekh): NS 0.45 % with KCl 20 mEq/L 1000 ml IV lp1 at 200 ml/hr once 00:19 Drug: NS 0.9% with KCl 20 mEq/L 1000 ml Route: IV; Rate: 200 ml/hr; Site: left upper lp1 arm; 00:20 Follow up: IV Status: Infusion continued upon admission lp1 00:26 Not Given (Per Tj Lopez, INDUSTRIAL [employer]OOK- hold med): Insulin Regular Human 10 units IVP once lp1 00:27 Not Given (Patient without nausea ): Zofran (Ondansetron) 4 mg IVP once; over 2 minutes lp1 Disposition: 04/30/20 22:13 Hospitalization ordered by Crystal Costa for Inpatient Admission. Preliminary diagnosis is Diabetes mellitus due to underlying condition with ketoacidosis without coma. - Bed requested for Telemetry/MedSurg (Inpatient). - Status is Inpatient Admission. sv - Condition is Fair. - Problem is new. - Symptoms are unchanged. Signatures: Dispatcher [employer] EDMA Mable Schwab RN RN sv Pena, Laura, RN RN lp1 Tj Lopez, INDUSTRIAL COOK-C IND[employer]OOK-Cla1 Swetha Clark RN RN cg Angelo Carter MD MD tw4 Corrections: (The following items were deleted from the chart) 04/30 21:32 20:05 PMHx: Atrial Fib; lp1 lp1 22:10 22:07 NS 0.45 % with KCl 20 mEq/L 1000 ml IV at 125 ml/hr once ordered. la1 la1 23:47 22:13 Hospitalization Ordered by Crystal Costa MD for Inpatient Admission. Preliminary cg diagnosis is Diabetes mellitus due to underlying condition with ketoacidosis without coma. Bed requested for Intensive Care Unit. Status is Inpatient Admission. Condition is Fair. Problem is new. Symptoms are unchanged. tw4 23:49 23:45 LIPID PROFILE+C.LAB.BRZ ordered. EDMA EDMA 05/01 06:46 04/30 20:05 PMHx: Arthritis; lp1 lp1 05/02 06:31 04/30 23:47 04/30/2020 22:13 Hospitalization Ordered by Crystal Costa MD for Inpatient cg Admission. Preliminary diagnosis is Diabetes mellitus due to underlying condition with ketoacidosis without coma. Bed requested for [facility] ER HOLD. Status is Inpatient Admission. Condition is Fair. Problem is new. Symptoms are unchanged. cg 05/02 07:42 06:31 04/30/2020 22:13 Hospitalization Ordered by Crystal Costa MD for Inpatient sv Admission. Preliminary diagnosis is Diabetes mellitus due to underlying condition with ketoacidosis without coma. Bed requested for Telemetry/MedSurg (Inpatient). Status is Inpatient Admission. Condition is Fair. Problem is new. Symptoms are unchanged.
--- NOTE | 2020-04-30 22:13 | ER ---
Nurse's Notes [facility] Name: Janet Arredondo Age: 59 yrs Sex: Female : 1960 Arrival Date: 04/30/2020 Time: 19:48 Bed 7 Private MD: Diagnosis: Diabetes mellitus due to underlying condition with ketoacidosis without coma Presentation: 04/30 19:45 Chief complaint: EMS states: family called for patient for N/V today; Per EMS, patient lp1 with blood sugar above 600 on Glucometer; No hx of DM per patient and family; Patient given Reglan 10mg IV, NS 450 ml. 19:45 Coronavirus screen: Client denies travel out of the [place] in the last 14 days. nausea, lp1 vomiting. Ebola Screen: No symptoms or risks identified at this time. Initial Sepsis Screen: Does the patient meet any 2 criteria? No. Patient's initial sepsis screen is negative. Does the patient have a suspected source of infection? No. Patient's initial sepsis screen is negative. Risk Assessment: Do you want to hurt yourself or someone else? Patient reports no desire to harm self or others. Onset of symptoms was April 30, 2020. Care prior to arrival: IV initiated. 20 GA, in the left antecubital area, Oxygen administered. via nasal cannula. 19:45 Method Of Arrival: EMS: [facility] lp1 19:45 Acuity: SYLVESTER 3 lp1 Historical: - Allergies: 20:05 No Known Allergies; lp1 - Home Meds: 20:05 ropinirole 2 mg oral tab nightly [Active]; prednisone 5 mg Oral tab once daily lp1 [Active]; metoprolol tartrate 100 mg Oral tab 1 tab once daily [Active]; Tylenol #4 Oral [Active]; - PMHx: 05/01 06:46 Rheumatoid Arthritis; lp1 - PSHx: 04/30 20:05 None; lp1 - Immunization history:: Adult Immunizations up to date. - Social history:: Smoking status: Patient reports the use of cigarette tobacco products. Screenin:30 Abuse screen: Denies threats or abuse. Denies injuries from another. Nutritional lp1 screening: No deficits noted. Tuberculosis screening: No symptoms or risk factors identified. Fall Risk Total Costello Fall Scale indicates High Risk Score (45 or more points). Fall prevention measures have been instituted. Side Rails Up X 2 Frequent Obs/Assessments Occuring. Assessment: 20:00 General: Appears ill, Behavior is drowsy. Pain: Denies pain. Neuro: Level of lp1 Consciousness is awake, obeys commands, Oriented to person, place. Cardiovascular: Patient's skin is warm and dry. Respiratory: Airway is patent Respiratory effort is even, Breath sounds are clear bilaterally. GI: Abdomen is non-distended, Reports nausea, Patient currently denies diarrhea. : No signs and/or symptoms were reported regarding the genitourinary system. EENT: No signs and/or symptoms were reported regarding the EENT system. Derm: Skin is intact, Skin is dry, Skin is normal. Musculoskeletal: No deficits noted. 21:00 Reassessment: Patient arousable to voice, A/O x2; no vomiting noted. lp1 21:45 Reassessment: DONOVAN Parekh at bedside to discuss plan of care with patient. lp1 21:46 Reassessment: Spoke with patient's son Chava, , updated on patient care and lp1 pending admission status. 22:00 Reassessment: verbal order per Tj Lopez NP for Potassium 20mEq IV now. lp1 23:30 Reassessment: Patient appears in no apparent distress at this time. Patient resting, lp1 eyes closed, respirations even. Vital Signs: 19:45 BP 154 / 101; Pulse 94; Resp 20; Temp 99(O); Pulse Ox 100% on R/A; Weight 65.77 kg; lp1 20:30 BP 155 / 88; Pulse 119; Resp 20; Pulse Ox 98% on R/A; lp1 21:00 BP 154 / 85; Pulse 106; Resp 20; Pulse Ox 98% on R/A; lp1 22:00 BP 148 / 79; Pulse 93; Resp 18; Pulse Ox 99% on R/A; lp1 22:30 BP 138 / 87; Pulse 104; Resp 20; Temp 99.9(C); Pulse Ox 100% on R/A; lp1 23:30 BP 168 / 91; Pulse 91; Resp 20; Temp 100.4(C); Pulse Ox 99% on R/A; lp1 05/01 00:15 BP 146 / 95; Pulse 92; Resp 21; Temp 100.1(C); Pulse Ox 99% on R/A; lp1 ED Course: 04/30 19:48 Patient arrived in ED. tw4 19:50 Angelo Carter MD is Attending Physician. tw4 19:52 Missed attempt(s): 20 gauge in right forearm. Bleeding controlled, band aid applied, ea catheter tip intact. 20:00 Maintain EMS IV. Dressing intact. Site clean \T\ dry. Gauge \T\ site: 20g to L AC. lp 1 20:01 Miesha Dumont, RN is Primary Nurse. lp1 20:03 Triage completed. lp1 20:03 Arm band placed on left wrist. lp1 20:05 Patient has correct armband on for positive identification. Bed in low position. Side lp1 rails up X2. youth nutritional monitor on. Pulse ox on. NIBP on. 21:10 Inserted saline lock: 22 gauge in right forearm, using aseptic technique. Blood ds4 collected. 21:34 Chest Single View XRAY In Process Unspecified. EDMS 22:00 Accessed 18g Midline IV to L upper arm using ,sterile technique, per hospital protocol. lp1 Clean \T\ dry. Dressing intact. Good blood return. Flushes easily. By DONOVAN Parekh. 22:12 Crystal Costa MD is Hospitalizing Provider. tw4 22:35 Dyer cath inserted, using sterile technique, 16 Fr., by ne, balloon inflated, to ds4 gravity drainage, urine specimen collected. returned cloudy urine. Patient tolerated well. 05/01 00:23 No provider procedures requiring assistance completed. Patient admitted, IV remains in lp1 place. 07:04 Primary Nurse role handed off by Miesha Dumont, JAVIER 07:20 Mable Schwab, RN is Primary Nurse. sv 19:13 Primary Nurse role handed off by Mable Schwab, JAVIER sv 05/02 05:32 Harry Chamberlain, JAVIER is Primary Nurse. rv Administered Medications: 04/30 21:10 Drug: NS 0.9% 1000 ml Route: IV; Rate: 1 bolus; Site: right forearm; lp1 05/01 00:20 Follow up: IV Status: Completed infusion; IV Intake: 1000ml lp1 04/30 22:02 Drug: Potassium Chloride 20 mEq Route: IV; Rate: per protocol; Site: left upper arm; lp1 05/01 00:00 Follow up: IV Status: Completed infusion lp1 04/30 22:10 CANCELLED (Other Intervention Used): NS 0.45 % with KCl 20 mEq/L 1000 ml IV at 125 la1 ml/hr once 22:45 Drug: Rocephin 1 grams Route: IV; Rate: calculated rate; Site: left upper arm; lp1 23:45 Follow up: IV Status: Completed infusion; IV Intake: 10ml lp1 05/01 00:19 Not Given (Order changed per DONOVAN Parekh): NS 0.45 % with KCl 20 mEq/L 1000 ml IV lp1 at 200 ml/hr once 00:19 Drug: NS 0.9% with KCl 20 mEq/L 1000 ml Route: IV; Rate: 200 ml/hr; Site: left upper lp1 arm; 00:20 Follow up: IV Status: Infusion continued upon admission lp1 00:26 Not Given (Per DONOVAN Parekh- hold med): Insulin Regular Human 10 units IVP once lp1 00:27 Not Given (Patient without nausea ): Zofran (Ondansetron) 4 mg IVP once; over 2 minutes lp1 Intake: 04/30 22:00 IV: 1000ml (IV Fluid); Total: 1000ml. lp1 23:45 IV: 10ml; Total: 1010ml. lp1 05/01 00:20 IV: 1000ml; Total: 2010ml. lp1 00:20 IV: 1000ml (IV Fluid); Total: 3010ml. lp1 04/30 22:00 By EMS lp1 Output: 05/01 00:20 Urine: 200ml (Dyer); Total: 200ml. lp1 04/30 22:00 By EMS lp1 Outcome: 22:13 Decision to Hospitalize by Provider. tw4 05/01 00:23 Admitted to ER Hold. Please see [facility] for further documentation. lp1 critical Instructed on the need for admit. 05/02 07:42 Patient left the ED. sv Signatures: Dispatcher [employer] EDMable Rosales RN RN sv Pena, Laura, RN RN lp1 Reji Myers 4 Huyen Rincon RN RN ea Wadley, Terrence, MD MD tw4 Merry Chaudhry Ronaldo, RN RN rv Tj Lopez DATA ACQUISITION TECHNICIAN-Cla1 Corrections: (The following items were deleted from the chart) 04/30 21:32 20:05 PMHx: Atrial Fib; lp1 lp1 05/01 06:46 04/30 20:05 PMHx: Arthritis; lp1 lp1
[2020-04-30 22:58] LABS: Urine Blood 1+ (NEG); Urine Glucose 2+ (NEG); Urine Protein TRACE (NEG); Urine Specific Gravity 1.025 (1.005-1.030)
[2020-04-30] MEDS ORDERED: CEFTRIAXONE/SWI 1gm 1 GM/10 ML SYR ONE (22:59)
[2020-05-01] MEDS ORDERED: NS KCL 20MEQ 1,000 ML IV ONE (00:09)
--- NOTE | 2020-05-01 00:29 | P.HP ---
Certification for Inpatient Patient admitted to: Inpatient With expected LOS: >2 Midnights Patient will require the following post-hospital care: None Practitioner: I am a practitioner with admitting privileges, knowledge of patient current condition, hospital course, and medical plan of care. Services: Services provided to patient in accordance with Admission requirements found in Title 42 Section 412.3 of the Code of Federal Regulations <Tj Lopez - Last Filed: 05/01/20 00:24> Patient History Date of Service: 05/01/20 Primary Care Provider: Laine Alcaraz Reason for admission: DKA History of Present Illness: 59-year-old female with history of hypertension presents to the emergency department for nausea and vomiting. Upon presentation to the emergency department patient was slightly confused, appeared very dry. Blood sugar was checked which read high. The patient was worked up, labs significant for elevated white blood cell count 29.3 hemoglobin 17.7 hematocrit 55.4 4% band count serum osmolality 308 T. bili 1.2, d bili 0.3, alk-phos 385, lipase 564 small ketones noted in the serum. Anion gap 25. Patient without known history of diabetes. Urine obtained shows glucose, ketones, blood but no leukocytes or nitrates. Chest x-ray without any obvious acute findings. Lactate 1.4, blood cultures obtained. Patient is COVID negative. Patient initially tachycardic, sinus tachycardia with occasional runs of SVT/atrial fibrillation, unable to catch on EKG but seems to be happening less frequently. Patient is slightly hypertensive, alert, oriented x2. Patient given sepsis fluid bolus total of 2 L receive between EMS and the emergency department. Potassium was initially 3.1, for this reason insulin drip was held in order to correct potassium 1st. Ordered 20 mEq runner of potassium and maintenance fluids with potassium. Repeat chemistry now, will start insulin drip once potassium is over 3.3. ED provider wishes to admit patient for DKA. Patient with elevated white blood cell count, lactate normal, no source of infection identified, cultures obtained. Doubt sepsis at this time. Continue with antibiotics for the time being. - Past Medical/Surgical History -: Hypertension Past Surgical History: Unable to obtain Psychosocial/ Personal History: Patient lives with her son - Family History Family History: Reviewed- Non-Contributory - Social History Smoking Status: Unknown if ever smoked Alcohol use: No CD- Drugs: No Caffeine use: Yes Place of Residence: Home <Tj Lopez - Last Filed: 05/01/20 00:24> Date of Service: 05/01/20 <Crystal Costa - Last Filed: 05/02/20 08:49> Allergies No Known Allergies Allergy (Verified 05/01/20 00:30) Home Medications: Acetaminophen with Codeine [Tylenol with Codeine #4 Tablet] 2 each PO QID PRN 05/01/20 Metoprolol Tartrate 100 mg PO DAILY 05/01/20 Ropinirole HCl 2 mg PO BEDTIME 05/01/20 predniSONE [Deltasone] 5 mg PO DAILY 05/01/20 Review of Systems is unable to be obtained <Tj Lopez - Last Filed: 05/01/20 00:24> Physical Examination - Physical Exam General: Alert, In no apparent distress HEENT: Atraumatic, PERRLA, Other (Mucous membranes very dry) Neck: Supple, 2+ carotid pulse no bruit, No LAD Respiratory: Clear to auscultation bilaterally, Normal air movement Cardiovascular: Regular rate/rhythm, Normal S1 S2 Capillary refill: <2 Seconds Gastrointestinal: Normal bowel sounds, No tenderness Musculoskeletal: No tenderness Integumentary: No rashes Neurological: Normal speech, Normal strength at 5/5 x4 extr, Normal tone, Normal affect - Studies Laboratory Data (last 24 hrs) 04/30/20 21:10: WBC 29.3 H*, Hgb 17.7 H, Hct 55.4 H, Plt Count 345 04/30/20 21:10: Sodium 132 L, Potassium 3.1 L, BUN 26 H, Creatinine 0.91, Glucose 472 H*, Total Bilirubin 1.2 H, AST 12 L, ALT 25, Alkaline Phosphatase 385 H, Lipase 564 H <Tj Lopez - Last Filed: 05/01/20 00:24> - Physical Exam Cardiovascular: Irregular heart rate/rhythm <Crystal Costa - Last Filed: 05/02/20 08:49> Assessment and Plan - Problems (Diagnosis) (1) DKA (diabetic ketoacidoses) Current Visit: Yes Status: Acute Plan: Patient not a known diabetic, will obtain A1c level with morning labs. Patient able to answer some questions appropriately but not all, not able to obtain good HPI but son reports that she has had episodes similar to this with nausea and vomiting in the past. Son states that they have never been aware that she is diabetic though. Currently awaiting results from 2nd BMP, if potassium is greater than 3.3 will start insulin drip, continue with q.4h BMP use, daily CBC, lipid profile in the morning. (2) Dehydration Current Visit: Yes Status: Acute Plan: Continue aggressive fluid resuscitation (3) Elevated white blood cell count Current Visit: Yes Status: Acute Plan: Continue broad-spectrum antibiotics, blood cultures obtained. Monitor for source of infection, repeat CBC daily. (4) Nausea & vomiting Current Visit: Yes Status: Acute Plan: Continue aggressive fluid hydration, p.r.n. Zofran. (5) Hypertension Current Visit: Yes Status: Acute Plan: Obtain and continue home medications, adjust as necessary. - Plan Admit to ICU, q.4h BMP and insulin drip is until gap is closed and patient is tolerating p.o. GI and DVT prophylaxis Discharge Plan: Home Plan to discharge in: 72 Hours - Advance Directives Does patient have a Living Will: No Does patient have a Durable POA for Healthcare: No - Code Status/Comfort Care Code Status Assessed: Yes (Full code) Critical Care: Yes Time Spent Managing Pts Care (In Minutes): 55 <Tj Lopez - Last Filed: 05/01/20 00:24> Date of Service: 05/01/20 Agree with findings as mentioned above. Patient appears had atrial fibrillation as well. Will start on beta-nilsa and anti coagulation and get Cardiology consultation. Cardiovascular exam reveals irregularly irregular rate and rhythm with no murmurs <Crystal Costa - Last Filed: 05/02/20 08:49>
[2020-05-01] MEDS ORDERED: NACHLORIDE 0.45% 1,000 ML with POTASSIUM CL 20 MEQ IV SCH ×2 (00:31)
[2020-05-01] MEDS: D5.45NS W/KCL 20MEQ 1,000 ML IV SCH ×2 (00:31→07:11)
[2020-05-01] MEDS: ONDANSETRON 4 MG/2 ML VIAL IV PRN ×3 (01:34→19:15)
[2020-05-01 01:40] LABS: Potassium 3.3 mmol/L (3.5-5.1)
[2020-05-01] MEDS ORDERED: GLUCAGON 1 MG/VIAL IM PRN ×2 (01:44→18:08)
[2020-05-01] MEDS ORDERED: D50W 25 GM/50 ML SYRINGE IV PRN ×2 (01:44→18:08)
[2020-05-01] MEDS ORDERED: INSULIN -REGULAR HUMAN 100 UNIT in NA CHLORIDE 0.9% 100 ML IV SCH (01:45)
[2020-05-01] MEDS ORDERED: ONDANSETRON 4 MG/2 ML VIAL ONE ×3 (01:47→19:23)
[2020-05-01] MEDS ORDERED: NS KCL 20MEQ 20 MEQ/1,000 ML BAG IV SCH (02:00)
[2020-05-01] MEDS ORDERED: KCL 20 MEQ/100 mL IVPB 20 MEQ/100 ML BAG IV SCH ×2 (02:00→08:00)
[2020-05-01 02:42] LABS: Urine Yeast FEW (NONE SEEN)
[2020-05-01 02:43] LABS: Urine Bacteria <20 /HPF (<20); Urine RBC NONE SEEN /HPF (NONE SEEN); Urine Urothelial Cells <5 /HPF (NONE SEEN)
[2020-05-01] MEDS ORDERED: INSULIN -REGULAR HUMAN 50 UNIT/0.5 ML ML ONE ×2 (02:44→21:17)
[2020-05-01] MEDS ORDERED: NA CHLORIDE 0.9% 100 ML ONE (02:45)
[2020-05-01] MEDS ORDERED: KCL 20 MEQ/100 mL IVPB 20 MEQ/100 ML BAG IV ONE ×2 (03:10→09:48)
[2020-05-01 05:11] VITALS: BMI 23.3
[2020-05-01 06:00] LABS: Absolute Lymphocytes (CBC) 3.8 K/uL (0.7-4.9); Basophils % 0.4 % (0-1.3); Hematocrit 46.4 % (36.0-45.0); Lymphocytes % 13.8 % (15.3-44.8); MPV 8.1 fL (7.6-11.3); RBC Red Blood Cell Count 5.32 M/uL (3.86-4.86)
[2020-05-01 06:24] LABS: Magnesium 1.8 mg/dL (1.8-2.4)
[2020-05-01 06:57] LABS: Potassium 3.3 mmol/L (3.5-5.1)
[2020-05-01] MEDS ORDERED: MAGNESIUM SULFATE 1 gm IVPB 1 GM/100 ML BAG IV ONE ×2 (07:04→07:40)
[2020-05-01] MEDS ORDERED: D5.45NS W/KCL 20MEQ 1,000 ML IV ONE (07:28)
--- NOTE | 2020-05-01 08:22 | RAD REPORT ---
EXAM DESCRIPTION: RAD - Chest Single View - 04/30/2020 9:33 pm CLINICAL HISTORY: R/O pneumonia Chest pain. COMPARISON: CHEST PA AND LAT 2 VIEW dated 06/15/2015; CHEST SINGLE VIEW dated 01/03/2014 FINDINGS: Portable technique limits examination quality. Interstitial lung markings are mildly prominent, nonspecific. The heart is normal in size. No displac ed fractures. IMPRESSION: Mildly prominent interstitial lung markings which may indicate viral pneumonitis or bron chitis.
[2020-05-01] MEDS: ENOXAPARIN 40 MG/0.4 ML SQ SCH (09:00)
[2020-05-01] MEDS: CEFTRIAXONE/SWI 1gm 1 GM/10 ML SYR IV SCH (09:00)
[2020-05-01] MEDS ORDERED: CEFTRIAXONE 1 GM/NS 50 ML 50 ML IV SCH (09:00)
[2020-05-01] MEDS ORDERED: CODEINE 30MG/APAP 300MG TAB PO PRN (09:34)
[2020-05-01] MEDS ORDERED: METOPROLOL TARTRATE 5 MG/5 ML INJ IV STA (09:34)
[2020-05-01] MEDS ORDERED: METHYLPREDNISOLONE 125 MG INJ IV ONE (09:34)
[2020-05-01] MEDS ORDERED: ENOXAPARIN 40 MG/0.4 ML SQ ONE (09:47)
[2020-05-01] MEDS ORDERED: CEFTRIAXONE/SWI 1gm 1 GM/10 ML SYR ONE (09:48)
[2020-05-01] MEDS ORDERED: D5.45NS W/KCL 20MEQ 1,000 ML IV SCH (09:49)
[2020-05-01] MEDS ORDERED: CODEINE 30MG/APAP 300MG TAB ONE (10:14)
[2020-05-01] MEDS ORDERED: METHYLPREDNISOLONE 125 MG INJ ONE (10:14)
[2020-05-01] MEDS ORDERED: METOPROLOL TARTRATE 5 MG/5 ML INJ IV ONE (10:14)
[2020-05-01] MEDS ORDERED: INSULIN GLARGINE 100 UNITS/ML SQ ONE ×2 (16:32→16:43)
[2020-05-01] MEDS: NA CHLORIDE 0.9% 1,000 ML IV SCH (17:35)
[2020-05-01] MEDS ORDERED: NA CHLORIDE 0.9% 1,000 ML ONE (17:42)
--- NOTE | 2020-05-01 18:59 | CON ---
Date of Consultation: 05/01/2020 Reason For Consultation: Atrial fibrillation. History Of Present Illness: A 59-year-old female with a past medical history of hypertension, presen efren to the emergency room with nausea and vomiting, severely dehydrated, and she had a very high whit e blood cell count, found to have an occasional runs of atrial fibrillation. As such, I was consulte d, saw her by the bedside. She was in sinus rhythm and doing well. Does not have any complaints. Past Medical History: Hypertension. Medications: Refer to reconciliation sheet for detailed list. Allergies: NO KNOWN DRUG ALLERGIES. Family History: No premature coronary artery disease or cancer. Review of Systems: All systems reviewed and they were negative except what mentioned in the HPI. Physical Examination: Vital Signs: Temperature is 99.7, pulse 77, breathing 17, blood pressure 149/90, saturating 95% on r oom air. General: Pleasant middle-aged female, in no distress. Head and Neck: Pupils are equal, react to light. Intact eye movements. No JVD. No cervical lympha denopathy. Neck: Supple. Thyroid is not enlarged. Lungs: Clear to auscultation bilaterally. No rhonchi, rales, or crackles. No accessory muscle use. Heart: Regular rate and rhythm. No extra sounds. Abdomen: Soft, nontender. Bowel sounds positive. No organomegaly. No masses or hernia. No rigidi ty or rebound. Extremities: No edema, clubbing, or cyanosis. Intact pulses. SKIN: No rashes. Neurologic: Alert, awake, oriented x3. No acute focal deficit appreciated. Investigations: Creatinine 0.69. Platelet counts 27.9. Assessment And Recommendation: Paroxysmal atrial fibrillation, currently is in sinus rhythm. Agree with Lopressor, she is on that once daily, switched to a long-acting Toprol-XL 100 mg daily or make i t twice a day, is to continue on the short-acting form. Also, this patient's CHADS-VASc score is 3. She will require anticoagulation. If no contraindication, start Eliquis 5 mg twice a day and please obtain echocardiogram and we will follow the patient as an outpatient upon discharge. SR/MANUELITOL Voice ID: [id number] Report ID: [id number]
[2020-05-01] MEDS: ROPINIROLE HCL 1 MG TAB PO SCH (21:00)
[2020-05-01] MEDS: INSULIN -REGULAR HUMAN 50 UNIT/0.5 ML ML SQ SCH (21:00)
[2020-05-01 21:47] VITALS: O2SAT 96
[2020-05-02] MEDS: ONDANSETRON 4 MG/2 ML VIAL IV PRN ×3 (03:24→16:04)
[2020-05-02] MEDS ORDERED: ONDANSETRON 4 MG/2 ML VIAL ONE (03:25)
[2020-05-02 05:40] LABS: Absolute Lymphocytes (CBC) 4.6 K/uL (0.7-4.9); Basophils % 0.4 % (0-1.3); Hematocrit 41.9 % (36.0-45.0); Lymphocytes % 22.2 % (15.3-44.8); MPV 8.2 fL (7.6-11.3)
[2020-05-02 05:44] LABS: BUN Blood Urea Nitrogen 9 mg/dL (7-18); Bicarbonate 27 mmol/L (21-32); Glucose Level 163 mg/dL (74-106); Potassium 3.3 mmol/L (3.5-5.1); Sodium Level 139 mmol/L (136-145)
[2020-05-02 05:46] LABS: Magnesium 4.6 mg/dL (1.8-2.4)
[2020-05-02] MEDS: INSULIN -REGULAR HUMAN 50 UNIT/0.5 ML ML SQ SCH ×4 (07:26→21:00)
--- NOTE | 2020-05-02 08:19 | ECHO ---
HEIGHT: 5 ft 6 in WEIGHT: 144 lb 15.968 oz DATE OF STUDY: 05/01/[address]: Crystal Costa MD 2-DIMENSIONAL: YES M.MODE: YES DOPPLER: YES COLOR FLOW: YES TDS: PORTABLE: DEFINITY: BUBBLE STUDY: DIAGNOSIS: ATRIAL FIBRILLATION CARDIAC HISTORY: CATHERIZATION: SURGERY: PROSTHETIC VALVE: PACEMAKER: MEASUREMENTS (cm) DIASTOLIC (NORMALS) SYSTOLIC (NORMALS) IVSd 0.9 (0.6-1.2) LA Diam (1.9-4.0) LVEF 67% LVIDd 4.3 (3.5-5.7) LVIDs 2.8 (2.0-3.5) %FS 37% LVPWd 1.0 (0.6-1.2) Ao Diam 2.7 (2.0-3.7) 2 DIMENSIONAL ASSESSMENT: RIGHT ATRIUM: NORMAL LEFT ATRIUM: NORMAL RIGHT VENTRICLE: NORMAL LEFT VENTRICLE: NORMAL TRICUSPID VALVE: NORMAL MITRAL VALVE: NORMAL PULMONIC VALVE: NORMAL AORTIC VALVE: NORMAL PERICARDIAL EFFUSION: NONE AORTIC ROOT: NORMAL LEFT VENTRICULAR WALL MOTION: NORMAL DOPPLER/COLOR FLOW: NORMAL COMMENTS: NORMAL LEFT VENTRICULAR EJECTION FRACTION 55-60%. NORMAL WALL MOTION. TECHNOLOGIST: AKIRA ESCALANTE
[2020-05-02] MEDS ORDERED: NA CHLORIDE 0.9% 500 ML IV ONE (08:50)
[2020-05-02] MEDS ORDERED: D50W 25 GM/50 ML SYRINGE IV PRN (08:51)
[2020-05-02] MEDS ORDERED: GLUCAGON 1 MG/VIAL IM PRN (08:51)
[2020-05-02] MEDS ORDERED: INSULIN GLARGINE 100 UNITS/ML SQ ONE (08:52)
[2020-05-02] MEDS ORDERED: PNEUMOCOCCAL VACCINE 0.5 ML IMVAC ONE (09:00)
[2020-05-02] MEDS ORDERED: INFLUENZA VACCINE (for 3y+) 0.5 ML DOSE IMVAC ONE (09:00)
[2020-05-02] MEDS: Levofloxacin500mg IV 500 MG/100 ML BAG IV SCH (09:19)
[2020-05-02] MEDS: ENOXAPARIN 40 MG/0.4 ML SQ SCH (09:20)
[2020-05-02] MEDS: METOPROLOL TAR 50 MG TAB PO SCH (09:22)
[2020-05-02] MEDS: CEFTRIAXONE/SWI 1gm 1 GM/10 ML SYR IV SCH (09:22)
[2020-05-02] MEDS: NA CHLORIDE 0.9% 1,000 ML IV SCH ×2 (10:00→21:39)
[2020-05-02] MEDS ORDERED: HYDROCORTISONE SUC 100 MG INJ IV ONE (11:16)
[2020-05-02 11:28] LABS: Absolute Lymphocytes (CBC) 3.6 K/uL (0.7-4.9); Basophils % 0.5 % (0-1.3); Hematocrit 43.4 % (36.0-45.0); Lymphocytes % 18.2 % (15.3-44.8); MPV 8.3 fL (7.6-11.3); RBC Red Blood Cell Count 4.95 M/uL (3.86-4.86)
[2020-05-02] MEDS ORDERED: POTASSIUM CL SA 10 MEQ TAB PO ONE (11:28)
--- NOTE | 2020-05-02 16:09 | EKG ---
Test Date: 2020-05-01 Test Time: 09:31:19 Precision Thread Grinder Operator: DEBBI MEASUREMENT RESULTS: Intervals: Rate: 95 NC: QRSD: 70 QT: 420 QTc: 527 Byers: P: NC: QRS: 54 T: -78 INTERPRETIVE STATEMENTS: Atrial fibrillation ST & T wave abnormality, consider inferior ischemia or digitalis effect ST & T wave abnormality, consider anterior ischemia or digitalis effect Prolonged QT Abnormal ECG Compared to ECG 04/30/2020 19:55:51 Possible ischemia now present Prolonged QT interval now present ST (T wave) deviation still present Electronically Signed On 05-02-20 16:05:44 ENGINEERING LAB TECHNICIAN by Jimmy Hopper
[2020-05-02] MEDS: MORPHINE 4 MG/ML SYR IV PRN (20:32)
[2020-05-02] MEDS: ROPINIROLE HCL 1 MG TAB PO SCH (20:34)
[2020-05-03] MEDS: MORPHINE 4 MG/ML SYR IV PRN ×2 (03:32→09:10)
[2020-05-03] MEDS: ONDANSETRON 4 MG/2 ML VIAL IV PRN ×2 (03:34→09:06)
[2020-05-03 05:36] LABS: Absolute Lymphocytes (CBC) 4.6 K/uL (0.7-4.9); Basophils % 0.7 % (0-1.3); Hematocrit 42.4 % (36.0-45.0); Lymphocytes % 31.8 % (15.3-44.8); MPV 8.3 fL (7.6-11.3); RBC Red Blood Cell Count 4.85 M/uL (3.86-4.86)
[2020-05-03 05:47] LABS: BUN Blood Urea Nitrogen 9 mg/dL (7-18); Bicarbonate 27 mmol/L (21-32); Glucose Level 88 mg/dL (74-106); Magnesium 2.2 mg/dL (1.8-2.4); Phosphorus 2.6 mg/dL (2.5-4.9); Potassium 3.2 mmol/L (3.5-5.1); Sodium Level 142 mmol/L (136-145)
[2020-05-03 06:45] VITALS: TEMP 97.8
[2020-05-03] MEDS: INSULIN -REGULAR HUMAN 50 UNIT/0.5 ML ML SQ SCH (07:30)
[2020-05-03] MEDS ORDERED: HYDROCORTISONE SUC 100 MG INJ IV ONE (08:54)
--- NOTE | 2020-05-03 08:54 | RAD REPORT ---
EXAM DESCRIPTION: CT - Abdomen Pelvis W Contrast - 05/03/2020 7:03 am CLINICAL HISTORY: Abdominal pain COMPARISON: none. TECHNIQUE: Computed axial tomography of the abdomen pelvis was obtained. 100 cc Isovue-300 was admin istered intravenously. Oral contrast was not requested which limits evaluation of bowel. All CT scans are performed using dose optimization technique as appropriate and may include automated exposure control or mA/KV adjustment according to patient size. FINDINGS: Fatty liver. Cholecystectomy. Spleen, pancreas, adrenals and right kidney demonstrate no significant abnormality. Small low-density area upper pole left kidney reaches the periphery Normal appendix. No evidence of diverticulitis Right hip arthroplasties been performed. Left femoral head is fragmented small and sclerotic compatible with avascular necrosis. Deformity inv olves the left acetabulum. Retroverted uterus. It may contain fibroids. IMPRESSION: Small low-density area left kidney may indicate a mild pyelonephritis
--- NOTE | 2020-05-03 08:57 | P.PN ---
Subjective Date of Service: 05/02/20 Subjective: No new changes, No C/O voiced, Improving Review of Systems 10-point ROS is otherwise unremarkable Physical Examination - Vital Signs Temperature: 97.8 F Blood Pressure: 170/78 Pulse: 74 Respirations: 16 Pulse Ox (%): 96 - Physical Exam General: Alert, In no apparent distress, Oriented x3 Respiratory: Clear to auscultation bilaterally, Normal air movement Cardiovascular: Regular rate/rhythm, Normal S1 S2, No murmurs Gastrointestinal: Normal bowel sounds, Soft and benign, Non-distended, Tenderness (Mild tenderness) Musculoskeletal: No clubbing, No swelling, No tenderness Neurological: Sensation intact, Cranial nerves 3-12 intact Lymphatics: No axilla or inguinal lymphadenopathy - Studies Medications List Reviewed: Yes Assessment & Plan - Problems (Diagnosis) (1) DKA (diabetic ketoacidoses) Current Visit: Yes Status: Acute (2) Elevated white blood cell count Current Visit: Yes Status: Acute - Plan Plan: 1. Continue with long-acting insulin 2. IV steroids as needed 3. Monitor CBC 4. CT abdomen and pelvis 5. As long his blood sugars are stable anticipate discharge home in the morning pending CT scan 6. GI and DVT prophylaxis Discharge Plan: Home Plan to discharge in: Greater than 2 days - Advance Directives Does patient have a Living Will: No Does patient have a Durable POA for Healthcare: No - Code Status/Comfort Care Code Status Assessed: Yes Code Status: Full Code Critical Care: No Time Spent Managing PTS Care (In Minutes): 35
[2020-05-03] MEDS ORDERED: POTASSIUM CL SA 10 MEQ TAB PO ONE (09:00)
[2020-05-03] MEDS: ENOXAPARIN 40 MG/0.4 ML SQ SCH ×2 (09:00→09:08)
[2020-05-03] MEDS: METOPROLOL TAR 50 MG TAB PO SCH (09:07)
[2020-05-03] MEDS: CEFTRIAXONE/SWI 1gm 1 GM/10 ML SYR IV SCH (09:07)
[2020-05-03] MEDS: Levofloxacin500mg IV 500 MG/100 ML BAG IV SCH (09:08)
[2020-05-03 09:11] VITALS: BP 174/78
[2020-05-03] MEDS ORDERED: PANTOPRAZOLE 40MG TABLET PO ONE (09:56)
[2020-05-03] MEDS ORDERED: METOCLOPRAMIDE 10 MG/2mL INJ IV SCH (10:00)
--- NOTE | 2020-05-03 11:26 | PN ---
Date of Progress Note: 05/02/2020 Subjective: Ms. Arredondo had come in with dehydration; elevated white count; low platelet count; pa roxysmal atrial fibrillation, in sinus rhythm, on beta nilsa; was seen by Dr. Frey. Echocardiogr am was recommended. Her echocardiogram was normal. She maintained sinus rhythm on Toprol 100 mg ban ly. The plan was for her to go home on 05/03/2020 and follow up with her primary care. As stated ea nabil, AFib resolved, on beta-blockers. Echo normal. The patient should definitely be on at least a baby aspirin. Anticoagulation should be considered. We will follow her up as an outpatient. ERNESTINE/MARCIA Voice ID: [id number] Report ID: [id number]
--- NOTE | 2020-05-09 01:57 | P.DS ---
Discharge Date: 05/03/20 Primary Care Provider: Laine Alcaraz Disposition: ROUTINE DISCHARGE Discharge Condition: GOOD Reason for Admission: DKA - Problems (1) DKA (diabetic ketoacidoses) Status: Acute (2) Elevated white blood cell count Status: Acute Brief History of Present Illness: Pt is a 59-year-old female with history of hypertension presents to the emergency department for nausea and vomiting. Upon presentation to the emergency department patient was slightly confused, appeared very dry. Blood sugar was checked which read high. The patient was worked up, labs significant for elevated white blood cell count 29.3 hemoglobin 17.7 hematocrit 55.4 4% band count serum osmolality 308 T. bili 1.2, d bili 0.3, alk-phos 385, lipase 564 small ketones noted in the serum. Anion gap 25. Patient without known history of diabetes. Urine obtained shows glucose, ketones, blood but no leukocytes or nitrates. Chest x-ray without any obvious acute findings. Lactate 1.4, blood cultures obtained. Patient is COVID negative. Patient initially tachycardic, sinus tachycardia with occasional runs of SVT/atrial fibrillation, unable to catch on EKG but seems to be happening less frequently. Patient is slightly hypertensive, alert, oriented x2. Patient given sepsis fluid bolus total of 2 L receive between EMS and the emergency department. Potassium was initially 3.1, for this reason insulin drip was held in order to correct potassium 1st. Ordered 20 mEq runner of potassium and maintenance fluids with potassium. Re peat chemistry now, will start insulin drip once potassium is over 3.3. ED provider wishes to admit patient for DKA. Patient with elevated white blood cell count, lactate normal, no source of infection identified, cultures obtained. Doubt sepsis at this time. Continue with antibiotics for the time being. Hospital Course: Patient has done well during hospital stay. Patient is clinically doing much better. At this time, patient is stable for discharge with outpatient followup. Patient will need to continue with insulin as an outpatient. Patient will need close follow up with the hand stamper or PCP to manage blood sugars closely. Vital Signs/Physical Exam: Temp Pulse Resp BP Pulse Ox 97.8 F 74 16 174/78 H 96 05/03/20 08:57 05/03/20 09:07 05/03/20 09:40 05/03/20 09:07 05/03/20 09:40 General: Alert, In no apparent distress, Oriented x3 Laboratory Data at Discharge: WBC 14.4 K/uL (4.3-10.9) H D 05/03/20 05:00 Hgb 13.8 g/dL (12.0-15.0) 05/03/20 05:00 Hct 42.4 % (36.0-45.0) 05/03/20 05:00 Plt Count 223 K/uL (152-406) 05/03/20 05:00 Sodium Cancelled 05/03/20 06:00 Potassium Cancelled 05/03/20 06:00 BUN Cancelled 05/03/20 06:00 Creatinine Cancelled 05/03/20 06:00 Glucose Cancelled 05/03/20 06:00 Phosphorus 2.6 mg/dL (2.5-4.9) 05/03/20 05:00 Magnesium 2.2 mg/dL (1.8-2.4) 05/03/20 05:00 Total Bilirubin 1.2 mg/dL (0.2-1.0) H 04/30/20 21:10 AST 12 U/L (15-37) L 04/30/20 21:10 ALT 25 U/L (12-78) 04/30/20 21:10 Alkaline Phosphatase 385 U/L (45-117) H 04/30/20 21:10 Triglycerides 195 mg/dL (<150) H 05/01/20 05:45 Cholesterol 181 mg/dL (<200) 05/01/20 05:45 HDL Cholesterol 43 mg/dL (40-60) 05/01/20 05:45 Cholesterol/HDL Ratio 4.21 05/01/20 05:45 Lipase 564 U/L (73-393) H 04/30/20 21:10 Home Medications: Acetaminophen with Codeine [Tylenol with Codeine #4 Tablet] 2 each PO QID PRN 05/01/20 Metoprolol Tartrate 100 mg PO DAILY 05/01/20 Ropinirole HCl 2 mg PO BEDTIME 05/01/20 predniSONE [Prednisone*] 5 mg PO DAILY 05/01/20 Cefdinir [Omnicef] 300 mg PO BID #10 capsule 05/02/20 Insulin Glargine,Hum.rec.anlog [Lantus] 15 unit SQ BREAKFAST #2 vial 05/02/20 Methylprednisolone [Medrol dosepack] 4 mg PO DIRECTED #1 na 05/03/20 Metoclopramide HCl [Reglan] 10 mg PO AC #30 tablet 05/03/20 New Medications: Insulin Glargine,Hum.rec.anlog [Lantus] 15 unit SQ BREAKFAST #2 vial Methylprednisolone [Medrol dosepack] 4 mg PO DIRECTED #1 na Cefdinir [Omnicef] 300 mg PO BID #10 capsule Metoclopramide HCl [Reglan] 10 mg PO AC #30 tablet Patient Discharge Instructions: OK TO DC IV AND DC HOME. FOLLOW-UP WITH PRIMARY CARE PROVIDER IN 1-2 WEEKS. FOLLOW-UP WITH RHEUMATOLOGY IN 1-2 WEEKS. RETURN TO THE ER IF symptoms worsen. CALL or TEXT DR. BURGOS AT [phone] IF ANY QUESTIONS REGARDING HOSPITAL STAY. PLEASE CALL THE FLOOR AT [phone] IF ANY MEDICATION OR NURSING QUESTIONS. Diet: ADA Activity: Fall precautions Followup: Laine Alcaraz [facility] [Primary Care Provider] - Time spent managing pt's care (in minutes): 35
== END 2020-05-03 12:00 | disposition home or self-care (01) | DRG 638 ==
LOC: ER 19:44 → ERHOLD 23:41 → 2ND 05-02 07:32
PROVIDERS: ADMIT Hospitalist; ATTEND Hospitalist
DX: E11.10 Type 2 diabetes mellitus with ketoacidosis without coma (principal); I47.1 Supraventricular tachycardia; I10 Essential (primary) hypertension; F17.210 Nicotine dependence, cigarettes, uncomplicated; E86.0 Dehydration; I48.0 Paroxysmal atrial fibrillation; D72.829 Elevated white blood cell count, unspecified; Z79.52 Long term (current) use of systemic steroids; Z79.899 Other long term (current) drug therapy; Z79.4 Long term (current) use of insulin; Z20.828 Contact with and (suspected) exposure to other viral communicable diseases
CPT/HCPCS: 36415; 51702; 71045; 74177; 80048; 80061; 80076; 81003; 81015; 82010; 82310; 82947; 83036; 83605; 83690; 83735; 83930; 84100; 84145; 85025; 87040; 87077; 87086; 87088; 87186; 93005; 93306; 96361; 96365; 99285; J0696; J1650; J1720; J1815; J2405; J2765; J2930; J3475; J3480; J7030; J7040; Q9967; U0003

== ENCOUNTER 2022-09-19 21:41 | Inpatient (IN) | payer OTHER ==
--- OUTSIDE RECORDS SUMMARY | 2022-09-19 21:46 | XMS REPORT | Continuity of Care Document ---
:1960 Author Organization [facility] t Address [address] [facility] [address] [place] [address] Care Team Providers Name Role Phone Ha ANSARI, [facility] Primary Care Physician Anne-Marie Francis MA Attending Clinician Unavailable Rolando Matthews MD Attending Clinician Nu Gregory MA Attending Clinician Unavailable DENTON REA Attending Clinician Unavailable Payers Payer Name Policy Type Policy Number Effective Date Expiration Date S ource Problems Condition Condition Condition Status Onset Resolution Last Treating Co mments Source Name Details Category Date Date Treatment Clinician Date Chronic Chronic Disease Active 2020-05 [facility] left hip left hip 0-26 st pain pain 00:00: Hospita 00 l H/O H/O Disease Active [facility] chronic chronic 8-18 st inflammato inflammato 00:00: Ho spita ry ry 00 l arthritis arthritis Rheumatoid Rheumatoid Disease Active M [facility] arthritis arthritis 8-18 st involving involving 00:00: [facility]osp [facility] left hip left hip 00 l with with positive positive rheumatoid rheumatoid factor factor Pain Pain Disease Active [facility] management management 7-14 st Byron Matthews 00:00: Hospita 00 l Depression Depression Disease Active M [facility] , reactive , reactive 5-04 st 00:00: Hospita 00 l Grief Grief Disease Active [facility] reaction reaction 5-04 st 00:00: Hospita 00 l Osteoarthr Osteoarthr Disease Active 2019- M [facility]i itis of itis of 4-29 st left hip left hip 00:00: Hospit a 00 l Cough Cough Disease Active 2017-05 [facility] 05-06 st 00:00: Hospita 00 l Abnormal Abnormal Disease Active 2017-05 Metho di chest chest 05-06 x-ray x-ray 00:00: Hospita 00 l Elevated Elevated Disease Active 2017-05 [facility] di liver liver 05-05 enzymes enzymes 00:00: Hospita 00 l Chronic Chronic Disease Active [facility] pain pain 08-26 st 00:00: Hospita 00 l Rheumatoid Rheumatoid Disease Active M ethodi arthritis arthritis 10-11 involving involving 00:00: Hosp sirena multiple multiple 00 l sites with sites with positive positive rheumatoid rheumatoid factor factor GERD GERD Disease Active [facility] (gastroeso (gastroeso 10-11 phageal phageal 00:00: Hospita reflux reflux 00 l disease) disease) Fatigue Fatigue Disease Active [facility] 10-11 00:00: Hospita 00 l Allergies, Adverse Reactions, Alerts Allergy Allergy Status Severity Reaction(s) Onset Inactive Treating Comm ents Source Name Type Date Date Clinician Tocilizu Propensi Active Method i mab ty to 10-11 adverse 00:00: Hospita reaction 00 l s to drug Inflixim Propensi Active Method i ab ty to 10-11 adverse 00:00: Hospita reaction 00 l s to drug Sulfasal Propensi Active intoleran [facility] azine ty to 10-[address] adverse 00:00: Hospita reaction 00 l s to drug Family History Family Member Diagnosis Comments Start Date Stop Date Source Natural mother Other [facility] Rheum [facility] Social History Social Habit Start Date Stop Date Quantity Comments Source History of tobacco Smokes tobacco [facility] use daily Hospital Gender identity [facility] Sexual orientation [facility] Cigarettes smoked 2022-01-24 2022-01-[address] current (pack per 00:00:00 00:00:00 Hospita l day) - Reported Cigarette 2022-01-24 2022-01-24 [facility] 00:[facility]00[facility]00 Hospital Tobacco use and 2022-01-24 2022-01-24 Smokeless [facility] exposure 00:00:00 00:00:00 tobacco non-user Hospital Alcohol intake 2022-01-24 2022-01-24 Current [facility] 00:00:00 00:00:00 non-drinker of Hospital alcohol (finding) History of Social 2022-01-24 2022-01-[address] function 00:00:00 00:00:00 Hospital Alcohol Comment 2015-10-12 2015-10-12 not found [facility] Hospital Sex Ass[birth year] At [birth year] [facility] 00:[facility] Smoking Status Start Date Stop Date Source Smokes tobacco daily 2022-01-24 00:00:00 [facility] Medications Ordered Filled Start Stop Current Ordering Indication Dosage Frequency Signature Comments Components Source Medication Medication Date Date Medication? Clinician (SIG) Name Name mercy [place] [id number] chronic [facility] en-codeine 5-[address] (TYLENOL 00:00: 2 TABLETS [facility]osp [facility] WITH 00 BY MOUTH l CODEINE #4) FOUR TIMES 300-60 mg DAILY FOR per tablet CHRONIC PAIN naloxone 2023- Yes 1 spray to [facility] (Narcan) 4 5-16 05-[address] mg/actuatio 00:00: 04:59 prn Hospi ta n 00 :00 altered l spray,non-a mentation, erosol decreased nasal spray respiratio [place] acetaminoph 2022- [place] [id number] chronic M ethodi en-codeine 4-18 05-[address] (TYLENOL 00:00: 00:00 2 TABLETS Hos michael WITH 00 :00 BY MOUTH l CODEINE #4) FOUR TIMES 300-60 mg DAILY FOR per tablet CHRONIC PAIN ondansetron Yes [id number] 8mg Q8H Take 1 [facility] (ZOFRAN) 8 3-21 tablet (8 st MG tablet 00:00: mg total) Hos michael 00 by mouth l every 8 (eight) hours as needed for nausea or vomiting. predniSONE 2023- Yes 20mg QD Take 1 Meth deshawn (DELTASONE) 3-21 03-21 tablet (20 s t 20 mg 00:00: 04:59 mg total) Hospit a tablet 00 :00 by mouth l every morning. Prednisone 20mg. Take 1-4 every morning as directed during office visit. acetaminoph 2022- [place] [id number] chronic M ethodi en-codeine 3-23 08- pain. TAKE st (TYLENOL 00:00: 00:00 2 TABLETS Hos michael WITH 00 :00 BY MOUTH l CODEINE #4) FOUR TIMES 300-60 mg DAILY FOR per tablet CHRONIC PAIN predniSONE 4- Yes [id number] 15mg QD Take 3 [facility] (DELTASONE) 2-17 -[address] 5 mg tablet 00:00: 05:59 (15 mg Hos michael 00 :00 total) by l mouth daily. ondansetron 2022- No [id number] 8mg Q8H Take 1 [facility] (ZOFRAN) 8 -19 07- tablet (8 st MG tablet 00:00: 00:00 mg total) Ho spita 00 :00 by mouth l every 8 (eight) hours as needed for nausea or vomiting. [place]aminoph 2022- [place] [id number] chronic M ethodi en-codeine 2-07-[address] (TYLENOL 00:00: 00:00 2 TABLETS Hos michael WITH 00 :00 BY MOUTH 4 l CODEINE #4) TIMES 300-60 mg DAILY FOR per tablet CHRONIC PAIN predniSONE 2022- No 20mg QD Take 1 Meth deshawn (DELTASONE) 06-21- tablet (20 s t 20 mg 00:00: 00:00 mg total) Hospit a tablet 00 :00 by mouth l every morning. Prednisone 20mg. Take 1-4 every morning as directed during office visit. ondansetron 2022- No [id number] 8mg Q8H Take 1 [facility] (ZOFRAN) 8 -22 06- tablet (8 st MG tablet 00:00: 00:00 mg total) Ho spita 00 :00 by mouth l every 8 (eight) hours as needed for nausea or vomiting. acetaminoph 2022- [place] [id number] chronic M ethodi en-codeine 1-17 06-[address] (TYLENOL 00:00: 00:00 2 TABLETS Hos michael WITH 00 :00 BY MOUTH 4 l CODEINE #4) TIMES 300-60 mg DAILY FOR per tablet CHRONIC PAIN predniSONE 2021-05- No 20mg QD Take 1 Meth deshawn (DELTASONE) 2-15 -17 tablet (20 s t 20 mg 00:00: 00:00 mg total) Hospit a tablet 00 :00 by mouth l every morning. Prednisone 20mg. Take 1-4 every morning as directed during office visit. acetaminoph 2021-05- [place] [id number] chronic M ethodi en-codeine 2-15 -[address] (TYLENOL 00:00: 00:00 2 TABLETS Hos michael WITH 00 :00 BY MOUTH 4 l CODEINE #4) TIMES 300-60 mg DAILY FOR per tablet CHRONIC PAIN acetaminoph 2021-05- No chronic M ethodi en-codeine -15 -[address] (TYLENOL 00:00: 00:00 2 TABLETS Hos michael WITH 00 :00 BY MOUTH 4 l CODEINE #4) TIMES 300-60 mg DAILY FOR per tablet CHRONIC PAIN ondansetron 2021-05- No [id number] 8mg Q8H Take 1 [facility] (ZOFRAN) 8 1-10 -18 tablet (8 st MG tablet 00:00: 00:00 mg total) Ho spita 00 :00 by mouth l every 8 (eight) hours as needed for nausea or vomiting. acetaminoph 2021-05- [place] [id number] chronic M ethodi en-codeine 1-10 11-[address] (TYLENOL 00:00: 00:00 2 TABLETS Hos michael WITH 00 :00 BY MOUTH 4 l CODEINE #4) TIMES 300-60 mg DAILY FOR per tablet CHRONIC PAIN methotrexat 2021-05- No [id number] 15mg Q7D Inject 0.6 Method[facility] e PF 25 0-12 10-13 65041 mL ([address] mg/mL chemo 00:00: 04:59 total) Hos michael syringe 00 :00 under the l skin once a week. 0.6cc SQ Weekly ondansetron 2021-05- No [id number] 8mg Q8H Take 1 [facility] (ZOFRAN) 8 0-12 11-10 tablet (8 st MG tablet 00:00: 00:00 mg total) Ho spita 00 :00 by mouth l every 8 (eight) hours as needed for nausea or vomiting. acetaminoph 2021-05- [place] [id number] chronic M ethodi en-codeine 0-12 11-[address] (TYLENOL 00:00: 00:00 2 TABLETS Hos michael WITH 00 :00 BY MOUTH 4 l CODEINE #4) TIMES 300-60 mg DAILY FOR per tablet CHRONIC PAIN predniSONE 2021- No 20mg QD Take 1 Meth deshawn (DELTASONE) 01-25 12-15 tablet (20 s t 20 mg 00:00: 00:00 mg total) Hospit a tablet 00 :00 by mouth l every morning. Prednisone 20mg. Take 1-4 every morning as directed during office visit. upadacitini Yes 15mg QD Take 1 Meth deshawn b (Rinvoq) 01-24 tablet (15 st 15 mg 09:53: mg total) Hospita tablet 37 by mouth l extended daily. release 24 hr ER tablet metoprolol Yes 100mg QD Take 100 Me [facility] succinate - mg by st XL 09:53: mouth Hospita (TOPROL-XL) 00 daily. l 100 MG 24 hr tablet hydrOXYchlo 2022- No 200mg QD Take 1 [facility] roQUINE 01-[address] (PLAQUENIL) 00:00: 04:59 (200 mg Ho spita 200 mg 00 :00 total) by l tablet mouth daily. sulfaSALAzi 2022- No 1500mg Q.5D Take 3 M ethodi ne 01-[address] (AZULFIDINE 00:00: 04:59 (1,500 mg Hospita EN-TAB) 500 00 :00 total) by l MG DR mouth 2 tablet (two) times a day. ondansetron 2021- No [id number] TAKE 1 [facility] (ZOFRAN) 8 -14 10-[address] MG tablet 00:00: 00:00 MOUTH Hospit a 00 :00 EVERY 8 l HOURS NEEDED FOR NAUSEA/VOM ITING acetaminoph 2021- No [id number] chronic M ethodi en-codeine 9-13 10-[address] (TYLENOL 00:00: 00:00 2 TABLETS Hos michael WITH 00 :00 BY MOUTH 4 l CODEINE #4) TIMES 300-60 mg DAILY FOR per tablet CHRONIC PAIN ondansetron 2021- No [id number] TAKE 1 [facility] (ZOFRAN) 8 01-[address] MG tablet 00:00: 00:00 MOUTH Hospit a 00 :00 EVERY 8 l HOURS NEEDED FOR NAUSEA/VOM ITING acetaminoph 2021- [place] [id number] chronic M ethodi en-codeine 12-[address] (TYLENOL 00:00: 00:00 QID Hospita WITH 00 :00 l CODEINE #4) 300-60 mg per tablet nirmatrelvi 2021- No 3{tbl} Q.5D Take 3 M ethodi r-ritonavir 12-17 tablets by s t (Paxlovid, 00:00: 04:59 mouth 2 Hos michael EUA,) 300 00 :00 (two) l mg (150 mg times a x 2)-100 mg day for 5 per Dose days. ondansetron No [id number] TAKE 1 [facility] (ZOFRAN) 8 12-[address] MG tablet 00:00: 00:00 MOUTH Hospit a 00 :00 EVERY 8 l HOURS NEEDED FOR NAUSEA/VOM ITING predniSONE 2022- No [id number] 15mg QD Take 3 [facility] (DELTASONE) 11-13-[address] 5 mg tablet 00:00: 00:00 (15 mg Hos michael 00 :00 total) by l mouth daily. acetaminoph 2021- [place] [id number] CHRONIC M ethodi en-codeine 11-[address] (TYLENOL 00:00: 00:00 2 TABLETS Hos [facility]ichael WITH 00 :00 BY MOUTH 4 l CODEINE #4) TIMES 300-60 mg DAILY per tablet NEEDED FOR MODERATE PAIN OR SEVERE PAIN UP TO 30 DAYS ondansetron 2021- No [id number] 8mg Q8H TAKE 1 [facility] (ZOFRAN) 8 11-13 TABLET (8 st MG tablet 00:00: 00:00 MG TOTAL) Ho spita 00 :00 BY MOUTH l EVERY 8 (EIGHT) HOURS NEEDED FOR NAUSEA OR VOMITING. acetaminoph 2021- No [id number] chronic M ethodi en-codeine 618 -[address] (TYLENOL 00:00: 00:00 2 TABLETS Hos [facility]ichael WITH 00 :00 BY MOUTH 4 l CODEINE #4) TIMES 300-60 mg DAILY per tablet NEEDED FOR MODERATE PAIN OR SEVERE PAIN UP TO 30 DAYS folic acid Yes [id number] 1mg QD Take 1 [facility] (FOLVITE) 1 - 74564 tablet (1 st MG tablet 00:00: mg total) Hos michael 00 by mouth l daily. methotrexat 2021- No [id number] 15mg Q7D Inject 0.6 Method[facility] e PF 25 10-19- 68447 mL ([address] mg/mL chemo 00:00: 00:00 total) Hos michael syringe 00 :00 under the l skin once a week. 0.6cc SQ Weekly ondansetron 2021- No [id number] 8mg Q8H Take 1 [facility] (ZOFRAN) 8 -18 11-12 tablet (8 st MG tablet 00:00: 00:00 mg total) Ho spita 00 :00 by mouth l every 8 (eight) hours as needed for nausea or vomiting. acetaminoph 2021- No [id number] chronic M ethodi en-codeine -22 10-[address] (TYLENOL 00:00: 00:00 2 TABLETS Hos michael WITH 00 :00 BY MOUTH 4 l CODEINE #4) TIMES 300-60 mg DAILY per tablet NEEDED FOR MODERATE PAIN OR SEVERE PAIN UP TO 30 DAYS ondansetron 2021- No [id number] 8mg Q8H Take 1 [facility] (ZOFRAN) 8 5-20 -17 tablet (8 st MG tablet 00:00: 00:00 mg total) Ho spita 00 :00 by mouth l every 8 (eight) hours as needed for nausea or vomiting. predniSONE 2021- No 15mg QD Take 3 Meth deshawn (DELTASONE) -22 11-[address] 5 mg tablet 00:00: 00:00 (15 mg Hos michael 00 :00 total) by l mouth daily. folic acid No 1mg QD Take 1 Meth deshawn (FOLVITE) 1 08-23 tablet (1 st MG tablet 00:00: 00:00 mg total) Ho spita 00 :00 by mouth l daily. methotrexat 2021- No [id number] 15mg Q7D Inject 0.6 Method[facility] e PF 25 08-23 17014 mL ([address] mg/mL chemo 00:00: 00:00 total) Hos michael syringe 00 :00 under the l skin once a week. 0.6cc SQ Weekly ondansetron 2021- No 8mg Q8H Take 1 Met hodi (ZOFRAN) 8 08-23 tablet (8 st MG tablet 00:00: 00:00 mg total) Ho spita 00 :00 by mouth l every 8 (eight) hours as needed for nausea or vomiting. acetaminoph 2021- No [id number] chronic M ethodi en-codeine 08-[address] (TYLENOL 00:00: 00:00 2 TABLETS Hos michael WITH 00 :00 BY MOUTH 4 l CODEINE #4) TIMES 300-60 mg DAILY per tablet NEEDED FOR MODERATE PAIN OR SEVERE PAIN UP TO 30 DAYS syringe Yes [id number] .6mL Q1W 0.6 mL M ethodi with needle 3-[address] 1 mL 27 x 00:00: days. Hospita /2" 00 l syringe hydrOXYchlo 2020-05- No 200mg QD Take 1 [facility] roQUINE 1-10 12-[address] (PLAQUENIL) 00:00: 00:00 (200 mg Ho spita 200 mg 00 :00 total) by l tablet mouth daily. upadacitini 2021- No 15mg QD Take 1 Met hodi b (Rinvoq) 11-14 tablet (15 st 15 mg 00:00: 00:00 mg total) Hospit a tablet 00 :00 by mouth l extended daily. release 24 hr ER tablet Immunizations Ordered Immunization Filled Immunization Date Status Commen ts Source Name Name JAHAIRA ROWLAND 2020-12-28 Completed [facility] VACCINATION 00:00:00 [facility] PPD Test 2014-06-16 Completed [facility] Vital Signs Vital Name Observation Time Observation Value Comments Source Systolic blood 2022-01-24 14:51:00 182 mm[Hg] [facility] pressure Diastolic blood 2022-01-24 14:51:00 91 mm[Hg] [facility] pressure Heart rate 2022-01-24 14:51:00 64 /min [facility] Body height 2022-01-24 14:51:00 162.6 cm [facility] Body weight 2022-01-24 14:51:00 68.04 kg [facility] BMI 2022-01-24 14:51:00 25.75 kg/m2 [facility] Oxygen saturation in 2022-01-24 14:51:00 100 /min [facility] Arterial blood by Pulse oximetry Body temperature 2021-10-02 19:38:00 37.06 [facility] Procedures Procedure Date / Time Performing Clinician Source Performed QUANTIFERON-TB GOLD PLUS, 2022-01-24 15:39:00 [facility] 4 TUBE QUANTIFERON-TB GOLD PLUS 2022-01-24 15:39:00 [facility] CBC WITH PLATELET AND 2022-01-24 15:35:00 [facility] DIFFERENTIAL COMPREHENSIVE METABOLIC 2022-01-24 15:35:00 [facility] PANEL SEDIMENTATION RATE 2022-01-24 15:35:00 [facility] C-REACTIVE PROTEIN 2022-01-24 15:35:00 [facility] GGT 2022-01-24 15:35:00 [facility]ital ANTI MITOCHONDRIA SCREEN 2022-01-24 15:35:00 [facility] ZZANTI-SMOOTH MUSCLE 2022-01-24 15:35:00 [facility] ANTIBODY SPECIMEN STATUS REPORT 2022-01-24 15:35:00 [facility] URINE CULTURE 2021-10-02 20:33:00 [facility] URINALYSIS, AUTOMATED 2021-10-02 20:33:00 [facility] WITH MICROSCOPY MICROSCOPIC EXAMINATION 2021-10-02 20:33:00 [facility] CBC WITH PLATELET AND 2021-10-02 20:32:00 [facility] DIFFERENTIAL COMPREHENSIVE METABOLIC 2021-10-02 20:32:00 [facility] PANEL SEDIMENTATION RATE 2021-10-02 20:32:00 [facility] C-REACTIVE PROTEIN 2021-10-02 20:32:00 [facility] VECTRA 2021-10-02 20:32:00 [facility]ital Plan of Care Planned Activity Planned Date Details Comments Source Future Scheduled 2022-09-17 Pneumococcal Vaccine: [facility] Test 12:19:15 Pediatrics (0 to 5 Years) and At-Risk Patients (6 to 64 Years) (1 - PCV) [code = Pneumococcal Vaccine: Pediatrics (0 to 5 Years) and At-Risk Patients (6 to 64 Years) (1 - PCV)] Future Scheduled 2022-09-17 SHINGLES VACCINES (1 Met [facility] Test 12:19:15 of 2) [code = SHINGLES VACCINES (1 of 2)] Future Scheduled 2022-09-17 Screening for [facility] Test 12:19:15 malignant neoplasm of cervix (procedure) [code = 834297237] Future Scheduled 2022-09-17 BREAST CANCER [facility] Test 12:19:15 SCREENING [code = BREAST CANCER SCREENING] Future Scheduled 2022-09-17 COLONOSCOPY SCREENING [facility] Test 12:19:15 [code = COLONOSCOPY SCREENING] Future Scheduled 2022-09-17 Screening for [facility] Test 12:19:15 malignant neoplasm of lung (procedure) [code = 284401363] Future Scheduled 2022-09-17 COVID-19 VACCINE (2 - [facility] Test 12:19:15 Moderna risk series) [code = COVID-19 VACCINE (2 - Moderna risk series)] Future Scheduled 2022-09-17 INFLUENZA VACCINE [facility] Test 12:19:15 [code = INFLUENZA VACCINE] Encounters Start End Encounter Admission Attending Care Care Encounter Source Date/Time Date/Time Type Type Clinicians Facility Department ID 2022-09-17 2022-09-17 Telephone Tito, 1.2.840.1 [id number] [facility] 00:00:00 00:00:00 Anne-Marie [address]88.[address] 3.430.2.7 Hospit a .3.933786 l .8 2022-09-17 2022-09-17 Orders Byron, 1.2.840.1 [id number] [facility] 00:00:00 00:00:00 Only Rolando 62405.1.[address] 3.430.2.7 Hospit a .3.884815 l .8 2022-09-17 2022-09-17 Telephone Tito, 1.2.840.1 [id number] [facility] 00:00:00 00:00:00 Anne-Marie 43862.1.[address] 3.430.2.7 Hospit a .3.241197 l .8 2022-08-20 2022-08-20 Refill Byron, 1.2.840.1 [id number] [facility] 00:00:00 00:00:[address] 3.430.2.7 Hospit a .3.299646 l .8 2022-08-20 2022-08-20 Telephone Tito, 1.2.840.1 [id number] [facility] 00:00:00 00:00:00 Anne-Marie 06301.1.[address] 3.430.2.7 Hospit a .3.355329 l .8 2022-07-23 2022-07-23 Orders Byron, 1.2.840.1 [id number] [facility] 00:00:00 00:00:00 Only Rolando 66462.1.[address] 3.430.2.7 Hospit a .3.749250 l .8 2022-07-23 2022-07-23 Refill Byron, 1.2.840.1 [id number] [facility] 00:00:00 00:00:[address] 3.430.2.7 Hospit a .3.101427 l .8 2022-06-21 2022-06-21 Telephone Tito, 1.2.840.1 [id number] [facility] 00:00:00 00:00:00 Anne-Marie 49796.1.[address] 3.430.2.7 Hospit a .3.449352 l .8 2022-05-22 2022-05-22 Orders Byron, 1.2.840.1 [id number] [facility]i 00:00:00 00:00:00 Only Rolando 69497.1.[address] 3.430.2.7 Hospit a .3.773484 l .8 2022-05-22 2022-05-22 Telephone Tito, 1.2.840.1 [id number] [facility] 00:00:00 00:00:00 Anne-Marie 72146.1.[address] 3.430.2.7 Hospit a .3.727455 l .8 2022-05-21 2022-05-21 Refill Byron, 1.2.840.1 [id number] [facility] 00:00:00 00:00:[address] 3.430.2.7 Hospit a .3.633985 l .8 2022-04-18 2022-04-18 Telemedici Byron, 1.2.840.1 [id number] [facility] 14:20:00 14:42:13 ne Rolando [address]8110.1.[address] 3.430.2.7 Hospit a .3.172221 l .8 2022-04-18 2022-04-18 [id number] [address] [place] 00:00:00 00:00:[address] ROLANDO [address] 2022-03-19 2022-03-19 Telephone Tito, 1.2.840.1 [id number] Methodi 00:00:00 00:00:00 Anne-Marie 18316.1.[address] 3.430.2.7 Hospit a .3.178968 l .8 2022-03-18 2022-03-18 Telephone Byron, 1.2.840.1 [id number] Methodi 00:00:00 00:00:[address] 3.430.2.7 Hospit a .3.256090 l .8 2022-03-14 2022-03-14 Refill Colt, 1.2.840.1 [id number] Methodi 00:00:00 00:00:[address] 3.430.2.7 Hospit a .3.599571 l .8 2022-02-13 2022-02-13 Telephone Tito, 1.2.840.1 [id number] [facility] 00:00:00 00:00:00 Anne-Marie [address]20.1.[address] 3.430.2.7 Hospit a .3.170913 l .8 2022-02-13 2022-02-13 Refill Tito, 1.2.840.1 [id number] [facility] 00:00:00 00:00:00 Anne-Marie 44299.1.[address] 3.430.2.7 Hospit a .3.762108 l .8 2022-02-13 2022-02-13 Telephone Tito, 1.2.840.1 [id number] Method[facility] 00:00:00 00:00:00 Anne-Marie 75746.1.[address] 3.430.2.7 Hospit a .3.953015 l .8 2022-02-12 2022-02-12 Transcribe Byron, 1.2.840.1 [id number] Methodi 00:00:00 00:00:00 Orders Rolando 00510.1.[address] 3.430.2.7 Hospit a .3.300712 l .8 2022-02-12 2022-02-12 Telephone Tito, 1.2.840.1 [id number] Methodi 00:00:00 00:00:00 Anne-Marie 02721.1.[address] 3.430.2.7 Hospit a .3.871882 l .8 2022-01-31 2022-01-31 Documentat Tito, 1.2.840.1 [id number] Methodi 00:00:00 00:00:00 ion Anne-Marie 45742.1.[address] 3.430.2.7 Hospit a .3.751292 l .8 2022-01-31 2022-01-31 Orders Byron, 1.2.840.1 [id number] [facility]i 00:00:00 00:00:00 Only Rolando [address]48.1.[address] 3.430.2.7 Hospit a .3.581087 l .8 2022-01-30 2022-01-30 Telephone Tito, 1.2.840.1 [id number] [facility] 00:00:00 00:00:00 Anne-Marie 08859.1.[address] 3.430.2.7 Hospit a .3.765435 l .8 2022-01-25 2022-01-25 Orders Byron, 1.2.840.1 [id number] [facility] 00:00:00 00:00:00 Only Rolando 87406.1.[address] 3.430.2.7 Hospit a .3.721619 l .8 2022-01-25 2022-01-25 Orders Byron, 1.2.840.1 [id number] [facility] 00:00:00 00:00:00 Only Rolando 31267.1.[address] 3.430.2.7 Hospit a .3.317989 l .8 2022-01-24 2022-01-24 Office Byron, 1.2.840.1 [id number] [facility] 09:40:00 10:29:33 Visit Rolando 80324.1.[address] 3.430.2.7 Hospit a .3.418629 l .8 2022-01-24 2022-01-24 Outpatient BYRON, [facility] [id number] [address] [place] 00:00:00 00:00:00 ROLANDO [address] 2022-01-24 2022-01-24 Orders Byron, 1.2.840.1 [id number] Methodi 00:00:00 00:00:00 Only Rolando 50530.1.[address] 3.430.2.7 Hospit a .3.492106 l .8 2022-01-24 2022-01-24 Travel 1.2.840.1 1.2.173.352 [id number] Methodi 00:00:00 00:00:[address] 3.430.2.7 0.2.7.3.698 Ho spita .3.698019 084.8 l .8 2022-01-16 2022-01-16 Refill Byron, 1.2.840.1 [id number] [facility] 00:00:00 00:00:[address] 3.430.2.7 Hospit a .3.215784 l .8 2022-01-15 2022-01-15 Refill Byron, 1.2.840.1 [id number] [facility] 00:00:00 00:00:[address] 3.430.2.7 Hospit a .3.274241 l .8 2021-12-17 2021-12-17 Orders Byron, 1.2.840.1 [id number] Methodi 00:00:00 00:00:00 Only Rolando 41289.1.[address] 3.430.2.7 Hospit a .3.843945 l .8 2021-12-17 2021-12-17 Telephone Colt, 1.2.840.1 [id number] Method[facility] 00:00:00 00:00:[address] 3.430.2.7 Hospit a .3.427616 l .8 2021-12-14 2021-12-14 Refill Byron, 1.2.840.1 [id number] 1946 Methodi 00:00:00 00:00:[address] 3.430.2.7 Hospit a .3.165910 l .8 2021-11-13 2021-11-13 Refill Gregory, 1.2.840.1 [id number] 12786 Methodi 00:00:00 00:00:[address] 3.430.2.7 Hospit a .3.810110 l .8 2021-11-13 2021-11-13 Refill Byron, 1.2.840.1 [id number] 084258 7450 Methodi 00:00:00 00:00:[address] 3.430.2.7 Hospit a .3.769911 l .8 2021-10-19 2021-10-19 Telephone Gregory, 1.2.840.1 [id number] 506 [id number] Methodi 00:00:00 00:00:[address] 3.430.2.7 Hospit a .3.813405 l .8 2021-10-19 2021-10-19 Refill Gregory, 1.2.840.1 [id number] 70622 Methodi 00:00:00 00:00:[address] 3.430.2.7 Hospit a .3.497605 l .8 2021-10-03 2021-10-03 Telephone Gregory, 1.2.840.1 [id number] 075 [id number] Methodi 00:00:00 00:00:[address] 3.430.2.7 Hospit a .3.606681 l .8 2021-10-02 2021-10-02 Office Byron, 1.2.840.1 [id number] 0363 Methodi 14:40:00 15:34:59 Visit Rolando 67476.1.[address] 3.430.2.7 Hospit a .3.887996 l .8 2021-10-02 2021-10-02 Outpatient BYRON, [facility] [id number] [address] [place] 00:00:00 00:00:[address] 2021-10-02 2021-10-02 Travel 1.2.840.1 1.2.067.020 [id number] Methodi 00:00:00 00:00:[address] 3.430.2.7 0.2.7.3.698 Ho spita .3.212932 084.8 l .8 2021-10-02 2021-10-02 Telephone Gregory, 1.2.840.1 [id number] Methodi 00:00:00 00:00:[address] 3.430.2.7 Hospit a .3.658806 l .8 2021-09-20 2021-09-20 Refill Gregory, 1.2.840.1 [id number] Methodi 00:00:00 00:00:[address] 3.430.2.7 Hospit a .3.245808 l .8 2021-06-20 2021-06-20 Outpatient BYRON, [facility] [id number] [address] [place] 00:00:00 00:00:00 ROLANDO [address] 2021-04-03 2021-04-03 Outpatient BYRON, [facility] [id number] [address] [place] 00:00:00 00:00:00 ROLANDO [address] 2021-02-22 2021-02-22 Outpatient [facility] [id number] [address] [place] 00:00:00 00:00:[address] 2020-12-19 2020-12-19 Outpatient RONA [facility] [id number] [place] 00:00:00 00:00:00 DENTON [address] 2020-12-19 2020-12-19 Outpatient RONA, [facility] [id number] [place] 00:00:00 00:00:00 DENTON [address] 2020-11-14 2020-11-14 Outpatient BYRON, [facility] [id number] [address] [place] 00:00:00 00:00:00 ROLANDO [address] 2020-09-05 2020-09-05 Outpatient BYRON, [facility] [id number] 7[address] [place] 00:00:00 00:00:00 ROLANDO [address] 2020-05-29 2020-05-29 Outpatient BYRON, [facility] [id number] [address] [place] 00:00:00 00:00:00 ROLANDO [address] 2019-09-01 2019-09-01 Outpatient BYRON, [facility] [id number] 7[address] [place] 00:00:00 00:00:00 ROLANDO [address] Results Test Description Test Time Test Comments Results Result Comments Source Specimen Status Report 2022-02-16 16:10:00 Test Item Value Reference Range Interpretation Comme nts Specimen Status Report COMMENT Writt en AuthorizationWritten (test code = 3285) Authorizrod Kaur Written Authorization R eceived. SHERLY (test code = SHERLY) Performed at: Lab[address] [id number] Director: Magdy Mcgee MD, Phone: [phone] [facility] Center[facility]anti[facility]ON-[facility] Gold Plus, 4 [id number] 10:10:00 Test Item Value Reference Interpretation Comments Range QuantiFERON Incubation Incubation (test performed. code = 5936) Quantiferon TB gold Indeterminate Negative A Mitogen (positive plus (test code = control) [place] ave low 34353-1) response. This may occur due tosuboptimal pre-analytical handling.Chemil um inescence immunoassay methodology SHERLY (test code = Performed at: SHERLY) [facility]Co[address] [id number] Director: Magdy Mcgee MD, Phone: [phone] at: [facility] Mxsugrt07[address] [id number] Director: Colt Nicholas MD, Phone: [phone] Lab Interpretation Abnormal (test code = 68751-3) [facility] CenterQuantiFERON-TB Gold [id number] 10:10:00 Test Item Value Reference Range Interpretation Comments Quantiferon Comment QuantiFERON-TB Gold criteria (test Plus is a code = 8251-1) qualitative indirect test f orM tuberculosis infection (including dise ase) and is intended for usein conjuncti on with risk assessment, radiography, an d other medicalan d diagnostic evaluations. Th e QuantiFERON-TB Gold Plus result isdetermined by subtracting the Nil value from eith er TB antigen (Ag)value. The Mitogen tube se rves as a control fo r the test. QuantiFERON TB1 Ag 0.00 IU/mL Value (test code = 10408-9) QuantiFERON TB2 Ag 0.00 IU/mL Value (test code = 5942) Quantiferon NIL 0.00 IU/mL value (test code = 48935-7) Quantiferon 0.09 IU/mL mitogen value (test code = 10106-8) SHERLY (test code = Performed at: 02 SHERLY) - [facility] CenterJnsdztx4601 [address] [id number] Director: Colt Nicholas MD, Phone: [phone] [facility] CenterAnti-smooth muscle [id number] 20:10:00 Test Item Value Reference Range Interpretation Comments F-actin 4 See_Comment Negative 0 - 1 9 (smooth Weak positive 2 0 - muscle) Ab, 30 Moderate to IgG (test code strong positi ve >30 = 54343-9) Actin Antibodie s are found in 52-85% of patients with autoimmune hepa titis or chronic acti ve hepatitis and i n 22% of patients wit h primary biliary cirrhosis. [Automated mess age] The system [employer] generated this result transmit efren reference range : 0 - 19 Units. The reference range was not used to interpret this result as normal/abnormal . SHERLY (test code Performed at: 01 - = SHERLY) [facility] CenterBzptsxyxey2888 [place], [place] [id number] Director: Blank Pepper MD, Phone: [phone] [facility] CenterAnti mitochondria [id number] 20:10:00 Test Item Value Reference Range Interpretation Comments Mitochondrial Ab <20.0 See_Comment Negative 0 .0 - (test code = 20.0 Equivocal 64413-9) 20.1 - 24.9 Positive >24.9Mitochondr ia l (M2) Antibodi es are found in 90-96% ofpatien ts with primary biliary cirrhosis. [Automated message] The system which generated this result transmitted reference range : 0.0 - 20.0 Unit s. The reference range was not used to interpr et this result as normal/abnormal . SHERLY (test code = Performed at: SHERLY) - [facility]co[address] [id number] Director: Blank Pepper MD, Phone: [phone] [facility] CenterMbdkupodRUA5010-71-05 14:09:00 Test Item Value Reference Range Interpretation Comments GGT (test code = 1634 See_Comment HH Results con firmed 4-2) ondilution. [Automated message] The system which generated this result transmitted reference range : 0 - 60 IU/L. Th e reference range was not used to interpret this result as normal/abnormal . SHERLY (test code = SHERLY) Performed at: 01 - [facility]Co[address] [id number] Director: Magdy Mcgee MD, Phone: [phone] Lab Interpretation Abnormal (test code = 79952-3) [facility] CenterComprehensive metabolic [id number] 14:11:00 Test Item Value Reference Range Interpretation Comments Glucose (test code = 478 mg/dL 65-99 H Effe ctive 2345-7) January 28, 2022 Glucose reference interval will b e changing to: 7 0 - 99 BUN (test code = 13 mg/dL 12-29 3094-0) Creatinine (test code 0.56 mg/dL 0.57-1.00 L = 2160-0) eGFR (test code = 103 mL/min/1.73 >=59 8257) BUN/creatinine ratio 05-01 (test code = 3097-3) Sodium (test code = 140 mmol/L 543-488 8035-2) Potassium (test code 3.8 mmol/L 3.5-5.2 = 2823-3) Chloride (test code = 96 mmol/L 96-106 2075-0) CO2 (test code = 26 mmol/L 2027-9) Calcium (test code = 8.8 mg/dL 8.7-10.3 38961-6) Protein (test code = 6.9 g/dL 6.0-8.5 2885-2) Albumin, S (test code 4.0 g/dL 3.8-4.8 = 1751-7) Globulin, total (test 2.9 g/dL 1.5-4.5 code = 57966-6) Albumin/globulin 1.4 1.2-2.2 ratio (test code = 1759-0) Total bilirubin (test 0.3 mg/dL 0.0-1.2 code = 1974-2) Alkaline phosphatase 492 See_Comment H [Autom ated (test code = 6768-6) message ] The system which generated this result transmitted reference range : 44 - 121 IU/L. The reference range was not used to interpr et this result as normal/abnormal . AST (test code = 17 See_Comment [Automated 1919-) message] The system which generated this result transmitted reference range : 0 - 40 IU/L. Th e reference range was not used to interpret this result as normal/abnormal . ALT (test code = 16 See_Comment [Automated 1741-6) message] The system which generated this result transmitted reference range : 0 - 32 IU/L. Th e reference range was not used to interpret this result as normal/abnormal . SHERLY (test code = SHERLY) Performed at: - [address] [id number] Director: Magdy Mcgee MD, Phone: [phone] Lab Interpretation Abnormal (test code = 12239-4) [facility]-reactive [id number] 14:11:00 Test Item Value Reference Range Interpretation Comments CRP (test code = 10 mg/L 0-1987-09) SHERLY (test code = Performed at: - SHERLY) [facility] [address] [id number] Director: Magdy Mcgee MD, Phone: [phone] [facility] [place] [place] with platelet and xlnsprfayxbb4928-72-09 14:11:00 Test Item Value Reference Range Interpretation Comments WBC (test code = 12.1 See_Comment H [Automated 6690-2) message] The system which generated this result transmitted reference range : 3.4 - 10.8 x10E3/uL. The reference range was not used to interpret this result as normal/abnormal . RBC (test code = 4.74 See_Comment [Automated 789-8) message] The system which generated this result transmitted reference range : 3.77 - 5.28 x10E6/uL. The reference range was not used to interpret this result as normal/abnormal . HGB (test code = 13.8 g/dL 11.1-15.9 718-7) HCT (test code = 43.8 % 34.0-46.6 4544-3) MCV (test code = 92 fL 79-97 787-2) MCH (test code = 29.1 pg 26.6-33.0 785-6) MCHC (test code = 31.5 g/dL 31.5-35.7 786-4) RDW (test code = 14.0 % 11.7-15.4 788-0) Platelet count (test 360 See_Comment [Autom ated code = 777-3) message] The system which generated this result transmitted reference range : 150 - 450 x10E3/uL. The reference range was not used to interpret this result as normal/abnormal . Neutrophils (test 85 % Not Estab. code = 770-8) Lymphocytes (test 13 % Not Estab. code = 736-9) Monocytes (test code 1 % Not Estab. = 5905-5) Eosinophils (test 0 % Not Estab. code = 713-8) Basophils (test code 0 % Not Estab. = 706-2) Neutrophils, absolute 10.4 See_Comment H [Auto mated (test code = 751-8) message] The system which generated this result transmitted reference range : 1.4 - 7.0 x10E3/uL. The reference range was not used to interpret this result as normal/abnormal . Lymphocytes, absolute 1.5 See_Comment [Auto mated (test code = 731-0) message] The system which generated this result transmitted reference range : 0.7 - 3.1 x10E3/uL. The reference range was not used to interpret this result as normal/abnormal . Monocytes, absolute 0.1 See_Comment [Automa efren (test code = 742-7) message] The system which generated this result transmitted reference range : 0.1 - 0.9 x10E3/uL. The reference range was not used to interpret this result as normal/abnormal . Eosinophils, absolute 0.0 See_Comment [Auto mated (test code = 711-2) message] The system which generated this result transmitted reference range : 0.0 - 0.4 x10E3/uL. The reference range was not used to interpret this result as normal/abnormal . Basophils, absolute 0.0 See_Comment [Automa efren (test code = 704-7) message] The system which generated this result transmitted reference range : 0.0 - 0.2 x10E3/uL. The reference range was not used to interpret this result as normal/abnormal . Immature granulocytes 1 % Not Estab. (test code = 94140-3) Immature 0.1 See_Comment [Automated granulocytes, message] The absolute (test code = system which 83718-3) generated this result transmitted reference range : 0.0 - 0.1 x10E3/uL. The reference range was not used to interpret this result as normal/abnormal . SHERLY (test code = SHERLY) Performed at: [address] [place] [id number] Director: Magdy Mcgee MD, Phone: [phone] Lab Interpretation Abnormal (test code = 06993-0) [facility] [id number] 14:11:00 Test Item Value Reference Range Interpretation Comments Sedimentation rate 43 See_Comment H [Automat ed (test code = 4537-7) message ] The system which generated this result transmitted reference range : 0 - 40 mm/hr. T he reference range was not used to interpret this result as normal/abnormal . SHERLY (test code = SHERLY) Performed at: [facility] [id number] Director: Magdy Mcgee MD, Phone: [phone] Lab Interpretation Abnormal (test code = 12725-2) [facility]2022-06-04 10:10:00 Test Item Value Reference Interpretation Comments Range Vectra score 51 Change in Score Multiple (test code = [place] [address]-5) meaningful changecalculati onVectra Score Interpret ationPatient has a High Vect ra Score and is at increased riskfor radiographic pr ogression. Consider adjust ing treatmentregime n to reduce inflammation, a nd retesting at the nextclin ical visit. Risk of 9 % 1-Year Risk of Radiographic Radiographic Progression Progress (test code = 7750) Vectra(R) level Comment HighVectra D isease Activity (test code = Levels:High: 45 to 76167-3) 100Moderate: 30 to 44Low: 1 to 29 Test description Comment VECTRA SCOR E (test code = DESCRIPTIONVect ra Score 3870) measures the co ncentrations of 12 serumprot eins. An algorithm is ap plied to these concentra tions tocalculate a d isease activity score on a scale of 1 to 100.The Ve ctra Score is personalized ba sed on the age, gender,and adiposity of the patient. RI SK OF RADIOGRAPHIC MO OGRESSION (RP):The risk o f RP is shown as a function o f Vectra Score.(see theo t right). The definition of R P is a 1-year totalSharp scor e change of >5 units. Incre ased risk of RPmeans a great er chance of irreversible rajat int damage.Patient serostatus may affect the risk of radiographicpro gression. Thus, the actua l risk of radiographicpro gression may be higher if th is patient is seropositiveand lower if this patient is seronegative. C HANGE IN SCORE DESCRIPTI ONChange in Score is assess ed in relation to the MinimallyImport ant Difference (MID ) for Vectra. The MID for pat ientswith a Moderate or Hig h Vectra Score is 8.0. V ECTRA SCORES OVER TIME Compl ete score history shown o n lastpage. As of April 07, 2017 the Vectra Score is adjusted based onthe age , gender and adiposity of th e patient. This test was d antwanopelorne and its performance characteristics determined by [employer]. It has not been cleared or appr ovedby the Food and Drug Administration. (C)2020 [facility] [employer]) [employer].All Rights Reserved . This document contai ns private and confidentia l healthinformati on protected by state and fe deral law. If you havereceive d this document in err or please call . V.1.0 / 01-23 AVI result (test 12 ug/mL RA Range: ( 0.29-85)RA code = 1847-3) Percentile: 8 6% CRP result (test 21 mg/L RA Range: ( 0.19-92)RA code = 1988-) Percentile: 8 5% VCAM-1 result 0.65 ug/mL RA Range: (0.3 9-1.2)RA (test code = Percentile: 51% 85803-7) IL-6 result 4.6 pg/mL RA Range: (2.5- 200)RA (test code = Percentile: 13% 82282-3) TNF-RI result 0.69 ng/mL RA Range: (0.8 -3.9)RA (test code = Percentile: <1% 13786-8) EGF result (test 83 pg/mL RA Range: ( 12-410)RA code = 84543-5) Percentile: 45% VEGF-A result 270 pg/mL RA Range: (75- 790)RA (test code = Percentile: 58% 19069-4) Leptin result 2.3 ng/mL RA Range: (1.5 -120)RA (test code = Percentile: 4% 32764-7) Resistin result 7.0 ng/mL RA Range: (3 .5-21)RA (test code = Percentile: 40% 25444-6) MMP-1 result 1.8 ng/mL RA Range: (1.3- 23)RA (test code = Percentile: 5% 27190-3) MMP-3 result 220 ng/mL RA Range: (7.9- 160)RA (test code = Percentile: 98% 62753-8) YKL-40 result 230 ng/mL RA Range: (22- 540)RA (test code = Percentile: 87% 76875-5) Biomarker Comment These reported analyte comment (test values and ref erence ranges code = 8098) are intendedfor use in the generation of t he Vectra score only. The se resultsshould n ot be used interchangeably with results generated bydif ferent methodologies. Footnote (test Comment RA Range: The se 95% code = 3976) reference range s were established fro m325,781 patient [facility]. RA Percentile: Subject's bioma rker level relative to lev jonathanin RA patient specime ns from which the RA ranges w eredetermined Complete Vectra Score History: Clinical Comment Please note: Th e individual validation (test biomarker r esults, which code = 3869) areexpressed to two significant fig ures, are required inputs into the algorithm used to calculate the Vectra Scor e.Clinical interpretation of individual biomarker level swhich have different weigh ts in the Vectra algorith m, hasnot been establishe d. SHERLY (test code = Performed at: SHERLY) [facility] [employer] [address] [id number] Director: Denton Méndez MD, Phone: [phone] cimquin Comment: Test(s) Glucose called to Tamara Ramos MA on 10/03/2021 at 18:09Specimen Comment: EST [facility] with [id number] 14:10:00 Test Item Value Reference Range Interpretation Comments Specific gravity, >=1.030 1.005-1.030 A urine (test code = 5811-5) pH, urine (test code 6.0 5.0-7.5 = 5803-2) Color, UA (test code Yellow Yellow = 5778-6) Appearance (test code Clear Clear = 5767-9) WBC esterase, urine Negative Negative (test code = 5799-2) Protein, UA (test Negative Negative/Trace code = 25667-5) Glucose, urine (test 3+ Negative A code = 16689-0) Ketones, UA (test 1+ Negative A code = 2514-8) Occult blood, urine Trace Negative A (test code = 5794-3) Bilirubin, UA (test Negative Negative code = 5770-3) Urobilinogen, UA 0.2 mg/dL 0.2-1.0 (test code = 82339-4) Nitrite, UA (test Negative Negative code = 5802-4) Microscopic See below: Microscopic was examination (test indicated and was code = 90504-0) performed. SHERLY (test code = SHERLY) Performed at: [address] [place] [id number] Director: Magdy Mcgee MD, Phone: [phone] Lab Interpretation Abnormal (test code = 47935-1) [facility] Center[facility]scopic [id number] 14:10:00 Test Item Value Reference Range Interpretation Comments WBC, UA (test code 0-5 See_Comment [Automat ed = 5821-4) message] The system which generated this result transmit efren reference range : 0 - 5 /hpf. The reference range was not used to interpret this result as normal/abnormal . RBC, UA (test code None seen See_Comment [Automat ed = 79770-1) message] The system which generated this result transmit efren reference range : 0 - 2 /hpf. The reference range was not used to interpret this result as normal/abnormal . Epithelial cells 0-10 See_Comment [Automated (non renal) (test message] T he code = 5787-7) system which generated this result transmit efren reference range : 0 - 10 /hpf. The reference range was not used to interpret this result as normal/abnormal . Casts (test code = None seen None seen /lpf 50110-6) Bacteria, UA (test None seen None seen/Few code = 5769-5) SHERLY (test code = Performed at: 01 - SHERLY) [facility] [address] [id number] Director: Magdy Mcgee MD, Phone: [phone] [facility]
--- NOTE | 2022-09-19 22:24 | RAD REPORT ---
EXAM DESCRIPTION: CT - Ct Stroke Brain Wo Cont - 09/19/2022 10:00 pm CLINICAL HISTORY: STROKE ALERT COMPARISON: HEAD BRAIN W O CONTRAST dated 01/03/2014; Head angio dated 09/19/2022; Chest Single View da efren 09/19/2022 TECHNIQUE: Noncontrast head CT images ad were obtained without IV contrast. Multiplanar reformats we re generated and reviewed. All CT scans are performed using dose optimization technique as appropriate and may include automated exposure control or mA/KV adjustment according to patient size. FINDINGS: No intracranial hemorrhage, mass, or edema. Midline structures are unremarkable. Normal ventricular caliber for age. Feng-white matter differentiation is preserved, without evidence of acute infarct. No abnormal extra- axial fluid collections. Patchy deep white matter hypodensities, nonspecific, but most suggestive of chronic small vessel isch emic changes. Mastoid air cells and visualized portions of the paranasal sinuses are clear. No acute bony findings. IMPRESSION: No evidence of an acute intracranial process. Deep white matter patchy hypodensities are nonspecific, but most suggestive small vessel ischemic ayana nges. The findings were communicated to Dr Cardoso on 09/19/2022 at 22:20 hours.
--- NOTE | 2022-09-19 22:29 | RAD REPORT ---
EXAM DESCRIPTION: CT - Head angio - 09/19/2022 10:00 pm CLINICAL HISTORY: left side weakness COMPARISON: Ct Stroke Brain Wo Cont dated 09/19/2022; HEAD BRAIN W O CONTRAST dated 01/03/2014 TECHNIQUE: Axial CT angiography images of the head was performed with multiplanar and maximum intens ity projection reconstructions. Images performed following intravenous administration of 87mL Isovue 370. All CT scans are performed using dose optimization technique as appropriate and may include automated exposure control or mA/KV adjustment according to patient size. FINDINGS: No evidence of large vessel occlusion. No evidence of aneurysm or dissection flap is detec efern. No flow-limiting stenosis or vascular malformation identified. Antegrade flow is seen in the vertebral arteries. The vertebral arteries are codominant. The visualized dural venous sinuses are grossly patent. IMPRESSION: No evidence of large vessel occlusion or flow-limiting stenosis.
[2022-09-19 22:30] LABS: Absolute Lymphocytes (CBC) 1.7 K/uL (0.7-4.9); Hematocrit 38.6 % (36.0-45.0); Lymphocytes % 11.1 % (15.3-44.8); MCV 89.3 fL (80-100); MPV 7.5 fL (7.6-11.3); RBC Red Blood Cell Count 4.32 M/uL (3.86-4.86)
[2022-09-19 22:40] LABS: Protime INR 1.03
[2022-09-19] MEDS ORDERED: ASPIRIN 325 MG TAB ONE (22:56)
[2022-09-19 22:58] LABS: Troponin High Sensitivity 16.6 pg/mL (<58.9)
[2022-09-19 23:01] LABS: Potassium 4.1 mEq/L (3.5-5.1)
--- NOTE | 2022-09-19 23:04 | RAD REPORT ---
[facility] CLINICAL HISTORY: left side weakness COMPARISON: Chest Single View dated 04/30/2020; CHEST PA AND LAT 2 VIEW dated 06/15/2015; CHEST SINGL E VIEW dated 01/03/2014 TECHNIQUE: Portable AP view of the chest. FINDINGS: The lungs are clear. No pneumothorax or effusion. The cardiomediastinal contours are unrem arkable. IMPRESSION: No acute cardiopulmonary process.
--- NOTE | 2022-09-19 23:06 | RAD REPORT ---
EXAM DESCRIPTION: RAD - Pelvis - 09/19/2022 10:29 pm CLINICAL HISTORY: PAIN COMPARISON: No comparisons TECHNIQUE: Single AP view of the pelvis. FINDINGS: The visualized pelvic ring is intact. No suspicious osseous lesions. 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 Excreted contrast in the bladder somewhat limits evaluation of the underl neftali osseous structures. Other pelvic joints are unremarkable. Visualized aspects of the abdomen and soft tissues are unremarkable. IMPRESSION: No acute osseous abnormality of the bony pelvis. Findings as above.
--- NOTE | 2022-09-19 23:06 | RAD REPORT ---
EXAM DESCRIPTION: RAD - Hip Left 2 View - 09/19/2022 10:28 pm CLINICAL HISTORY: PAIN COMPARISON: Abdomen Pelvis W Contrast dated 05/03/2020 TECHNIQUE: Left hip, AP and frogleg views of the left hip. FINDINGS: Limited range of motion on the frogleg view. Destructive changes and articular collapse of the femoral head, with osseous remodeling of the acetabulum, suggestive of advanced sequelae of lay te fracture or avascular necrosis. The appearance is not significantly changed compared to the prior CT allowing for differences in technique. IMPRESSION: As above.
--- NOTE | 2022-09-19 23:07 | EDPHYS ---
Physician Documentation [facility] Name: Janet Arredondo Age: 61 yrs Sex: Female : 1960 Arrival Date: 09/19/2022 Time: 21:41 Bed 13 Private MD: ED Physician Yesenia Cardoso HPI: 09/19 22:41 This 61 yrs old Female presents to ER via EMS with complaints of confusion, fall, hip sp3 pain. 22:42 61-year-old female with history of rheumatoid arthritis presents via EMS for chief sp3 complaint altered mental status, left-sided weakness and left-sided hip and arm pain secondary to a ground-level fall. Patient's son activated EMS at approximately 9 PM after he noticed that she was confused and not moving her left side. She was last seen normal at noon during her son's lunch break per EMS. Patient states that she had a ground-level fall and is has left hip pain and left upper extremity pain. Patient is confused and although awake is not answering questions therefore history and physical are limited secondary to this aspect. Code stroke was activated immediately upon patient arrival.. Historical: - Allergies: 22:14 No Known Allergies; jb4 - PMHx: 22:14 Rheumatoid Arthritis; jb4 ROS: 22:43 Unable to obtain ROS due to altered mental status. sp3 Exam: 22:43 Constitutional: This is a well developed, well nourished patient who is awake, alert, sp3 and in no acute distress. Head/Face: Normocephalic, atraumatic. Eyes: Pupils equal round and reactive to light, extra-ocular motions intact. Lids and lashes normal. Conjunctiva and sclera are non-icteric and not injected. Cornea within normal limits. Periorbital areas with no swelling, redness, or edema. Neck: Trachea midline, no thyromegaly or masses palpated, and no cervical lymphadenopathy. Supple, full range of motion without nuchal rigidity, or vertebral point tenderness. No Meningismus. Chest/axilla: Normal chest wall appearance and motion. Nontender with no deformity. No lesions are appreciated. Cardiovascular: Regular rate and rhythm with a normal S1 and S2. No gallops, murmurs, or rubs. Normal PMI, no JVD. No pulse deficits. Respiratory: Lungs have equal breath sounds bilaterally, clear to auscultation and percussion. No rales, rhonchi or wheezes noted. No increased work of breathing, no retractions or nasal flaring. Abdomen/GI: Soft, non-tender, with normal bowel sounds. No distension or tympany. No guarding or rebound. No evidence of tenderness throughout. 22:43 Musculoskeletal/extremity: Patient withdraws to pain in the left forearm and humerus area. Left lower extremity is also shortened and externally rotated. Surface abrasions are noted on upper and lower extremities on the left side. No head trauma noted. Patient is moving her neck freely the entire time she has been here. There are no withdrawals or pain to bony palpation. Patient was initially reported to us as stroke symptoms with the fall and trauma aspect detected after patient was here and on secondary exam and survey.. 22:43 Neuro: Patient is alert only to self and not to person place or time. She is able to move all extremities though decreased motor function on the left side presumably secondary to pain. There is no facial droop or weakness noted. Although she is confused, the words that she does speak or not garbled in any way. Gait not assessed.. 22:50 ECG was reviewed by the Attending Physician. EKG demonstrates normal sinus rhythm at 78 sp3 bpm with normal intervals, normal QRS, normal axis, nonspecific diffuse ST/T changes particularly V5 V6 without evidence of acute ischemia. Vital Signs: 22:14 BP 172 / 88; Pulse 80; Resp 20; Temp 97.8(TE); Pulse Ox 96% on R/A; Pain 8/10; jb4 23:00 BP 171 / 99; Pulse 79; Resp 16; Pulse Ox 96% on R/A; jb4 09/20 00:00 BP 178 / 92; Pulse 69; Resp 16; Pulse Ox 98% on R/A; jb4 09/19 22:14 Pain Scale: Adult jb4 NIH Stroke Scale Scores: 09/19 22:40 NIHSS Score: 5 jb4 MDM: 22:33 Patient medically screened. sp3 22:47 Data reviewed: vital signs, nurses notes, EMS record, lab test result(s), EKG, sp3 radiologic studies. ED course: 61-year-old female who initially presented as code stroke and was later found to be more of a traumatic presentation. Her CT scan of the head is negative and CTA is also negative. She has on my read a left hip fracture. Left upper extremity x-rays are normal. Laboratory work is still outstanding except for CBC which demonstrates a WBC count of 15,000 with left shift. We will add influenza and COVID as well as blood cultures to her work-up. Antibiotics will be added as indicated. Given the symptoms. Do not believe patient has had an acute CVA however neurological consultation will be obtained and patient with possible MRI as indicated. Patient will be admitted to hospitalist service and orthopedics will be consulted as well. We will follow on remaining outstanding labs.. 09/19 21:48 Order name: Basic Metabolic Panel; Complete Time: 23:12 sp3 09/19 21:48 Order name: CBC with Diff sp3 09/19 21:48 Order name: High Sensitivity Troponin; Complete Time: 23:12 sp3 09/19 21:48 Order name: Protime (+inr); Complete Time: 23:12 sp3 09/19 21:48 Order name: Ptt, Activated; Complete Time: 23:12 sp3 09/19 22:34 Order name: Manual Differential EDMS 09/19 22:39 Order name: Flu sp3 09/19 22:49 Order name: Blood Culture Adult (2) sp3 09/19 23:13 Order name: SARS-COV-2 Antigen Rapid EDMS 09/19 23:14 Order name: UAM sp3 09/19 23:26 Order name: UDS sb4 09/20 00:01 Order name: Basic Metabolic Panel EDMS 09/20 00:01 Order name: Basic Metabolic Panel EDMS 09/20 00:01 Order name: CBC with Automated Diff EDMS 09/20 00:01 Order name: CBC with Automated Diff EDMS 09/20 00:01 Order name: Hemoglobin A1c EDMS 09/20 00:01 Order name: Hemoglobin A1c EDMS 09/20 00:01 Order name: Lipid Profile EDMS 09/20 00:01 Order name: Lipid Profile EDMS 09/20 00:01 Order name: Magnesium EDMS 09/20 00:01 Order name: Magnesium EDMS 09/20 00:01 Order name: Phosphorus EDMS 09/20 00:01 Order name: Phosphorus EDMS 09/20 00:01 Order name: T4,Total EDMS 09/20 00:01 Order name: T4,Total EDMS 09/20 00:01 Order name: Thyroid Stimulating Hormone [facility] 09/20 00:01 Order name: Thyroid Stimulating Hormone [facility] 09/19 21:48 Order name: CT Stroke Brain w/o Contrast; Complete Time: 22:38 3 09/19 21:48 Order name: Stroke CXR 1 View; Complete Time: 23:12 sp3 09/19 21:49 Order name: CT Head Angio; Complete Time: 22:38 3 09/19 22:13 Order name: Hip Left 2 View XRAY; Complete Time: 23:12 5 09/19 22:13 Order name: Pelvis XRAY; Complete Time: 23:12 jb5 09/19 22:13 Order name: Humerus Left XRAY; Complete Time: 23:12 5 09/19 22:13 Order name: Forearm Left XRAY; Complete Time: 23:12 5 09/20 00:01 Order name: Stroke Protocol [facility] 09/19 21:48 Order name: EKG; Complete Time: 21:49 3 09/19 23:59 Order name: CONS Physician Consult [facility] 09/19 23:59 Order name: Physical Therapy Consult [facility] 09/19 23:59 Order name: NPO [facility] 09/20 00:01 Order name: Speech Therapy Consult [facility] 09/19 21:48 Order name: Accucheck; Complete Time: 22:21 3 09/19 21:48 Order name: Cardiac monitoring; Complete Time: 22:21 3 09/19 21:48 Order name: EKG - Nurse/Tech; Complete Time: 22:53 3 09/19 21:48 Order name: IV Saline Lock; Complete Time: 22:21 3 09/19 21:48 Order name: Labs collected and sent; Complete Time: 22:21 3 09/19 21:48 Order name: NPO; Complete Time: 22:21 3 09/19 21:48 Order name: O2 Per Protocol; Complete Time: 22:21 3 09/19 21:48 Order name: O2 Sat Monitoring; Complete Time: 22:21 3 09/19 21:48 Order name: Stroke Swallow Screen; Complete Time: 22:53 3 09/19 23:35 Order name: Dyer; Complete Time: 00:02 sp3 Administered Medications: 22:52 Drug: Aspirin PO 325 mg Route: PO; jb4 Disposition Summary: 09/19/22 23:06 Hospitalization Ordered Hospitalization Status: Inpatient Admission sp3 Provider: Nik Portillo sp3 Location: Telemetry/MedSurg (Inpatient) sp3 Condition: Stable sp3 Problem: new sp3 Symptoms: have worsened sp3 Bed/Room Type: Standard sp3 Room Assignment: 232(09/19/22 23:39) mw Diagnosis - Altered mental status, left hip fracture, left arm contusion, leukocytosis sp3 - Altered mental status, left hip necrosis, left arm contusion, leukocytosis, TIA sp3 Forms: - Medication Reconciliation Form sp3 - SBAR form sp3 NIH Stroke Scale - NIH Stroke Score Date: 09/19/2022 Time: 22:40 Total Score = 5 10. Dysarthria (speech clarity - read or repeat words) - 0(Normal) 11. Extinction and Inattention (visual/tactile/auditory/spatial/personal) - 0(No abnormality) 1a. Level of Consciousness (LOC) - 0(Alert) 1b. Level of Consciousness (LOC) (Month \T\ Age) - 0(Both) 1c. LOC Commands (Open \T\ Closes Eyes/Childhood Teacher) - 0(Both) 2. Best Gaze (Lateral Gaze Paresis) - 0(Normal) 3. Visual Field Loss - 0(No visual loss) 4. Facial Palsy - 0(Normal) 5a. Left Arm: Motor (10-second hold) - 3(No effort against gravity) 5b. Right Arm: Motor (10-second hold) - 0(No drift) 6a. Left Leg: Motor (5-second hold - always test supine) - UN(Amputation, joint fusion) - Notes: Deformity noted to the hip, extremity is shortended and externally rotated. 6b. Right Leg: Motor (5-second hold - always test supine) - 0(No drift) 7. Limb Ataxia (finger/nose \T\ heel/pal - test with eyes open) - 1(Present in one limb) 8. Sensory Loss (pinprick arms/legs/face) - 0(Normal) 9. Best Language: Aphasia (description/naming/reading) - 1(Mild to moderate aphasia) Initials: jb4 Signatures: Dispatcher [employer] EDMS Penelope Magana RN RN Vin Beck RN RN jb4 Yesenia Cardoso MD MD sp3 Kelley Preciado PA-C PA-C sb4 Corrections: (The following items were deleted from the chart) 22:43 22:42 61-year-old female with history of rheumatoid arthritis presents via EMS sp3 for chief complaint altered mental status, left-sided weakness and left-sided hip and arm pain secondary to a ground-level fall. Patient's son activated EMS at approximately 9 PM after he noticed that she was confused and not moving her left side. She was last seen normal at noon during her son's lunch break per EMS. Patient states that she had a ground-level fall and is has left hip pain and left upper extremity pain. Patient is confused and although awake is not answering questions therefore history and physical are limited secondary to this aspect.. sp3 23:13 22:39 SARS-COV-2 RT PCR+MOL.LAB.BRZ ordered. EDMS EDMS 23:39 23:06 sp3 mw
--- NOTE | 2022-09-19 23:07 | RAD REPORT ---
EXAM DESCRIPTION: RAD - Humerus Left - 09/19/2022 10:29 pm CLINICAL HISTORY: PAIN COMPARISON: No comparisons TECHNIQUE: Left Humerus, 3 views. FINDINGS: No fracture is identified. There is no dislocation or periosteal reaction noted. No forei gn body or other soft tissue abnormality. IMPRESSION: Negative left humerus examination.
--- NOTE | 2022-09-19 23:07 | ER ---
Nurse's Notes [facility] Name: Janet Arredondo Age: 61 yrs Sex: Female : 1960 Arrival Date: 09/19/2022 Time: 21:41 Bed 13 Private MD: Diagnosis: Altered mental status, left hip fracture, left arm contusion, leukocytosis;Altered mental status, left hip necrosis, left arm contusion, leukocytosis, TIA Presentation: 09/19 22:14 Chief complaint: EMS states: EMS was called for pt having left sided weakness and jb4 altered mental status. Pt is normally A\T\Ox3, is currently A\T\Ox0. Has left sided paralysis, last known normal was 12pm. Last bgl was 278 Pt reports falling earlier today, reports left arm pain with noted bruising and left leg and hip pain with notable shortening and external rotation of the left leg. Provider notified. Coronavirus screen: At this time, the client does not indicate any symptoms associated with coronavirus-19. Ebola Screen: No symptoms or risks identified at this time. Initial Sepsis Screen: Does the patient meet any 2 criteria? No. Patient's initial sepsis screen is negative. Does the patient have a suspected source of infection? No. Patient's initial sepsis screen is negative. Risk Assessment: Do you want to hurt yourself or someone else? Patient reports no desire to harm self or others. Onset of symptoms was September 19, 2022 at 12:00. Transition of care: patient was not received from another setting of care. 22:14 Method Of Arrival: EMS: [facility] jb4 22:14 Acuity: SYLVESTER 2 jb4 Historical: - Allergies: 22:14 No Known Allergies; jb4 - PMHx: 22:14 Rheumatoid Arthritis; jb4 Screenin:18 [facility] ED Fall Risk Assessment (Adult) History of falling in the last 3 months, jb4 including since admission Yes- single mechanical fall (1 pt) Confusion or Disorientation Yes (5 pts) Score/Fall Risk Level 3 or more points = High Risk Oriented to surroundings, Maintained a safe environment, Educated pt \T\ family on fall prevention, incl call for assistance when getting out of bed, Assessed \T\ reinforced patient's understanding of fall precautions. Abuse screen: Denies threats or abuse. Nutritional screening: No deficits noted. Tuberculosis screening: No symptoms or risk factors identified. Assessment: 22:18 General: Appears in no apparent distress. uncomfortable, Behavior is calm, cooperative, jb4 appropriate for age. Pain: Complains of pain in left arm and left leg Pain does not radiate. Pain currently is 8 out of 10 on a pain scale. Neuro: Level of Consciousness is awake, alert, obeys commands, Oriented to person. Cardiovascular: Patient's skin is warm and dry. Respiratory: Airway is patent Respiratory effort is even, unlabored, Respiratory pattern is regular, symmetrical. GI: No signs and/or symptoms were reported involving the gastrointestinal system. : No signs and/or symptoms were reported regarding the genitourinary system. EENT: No signs and/or symptoms were reported regarding the EENT system. Derm: Skin is intact, Skin is pink, warm \T\ dry. Bruising that is dark purple, on dorsal aspect of left forearm. Musculoskeletal: Circulation, motion, and sensation intact. Range of motion: limited in left shoulder and left hip Shortening and external rotation noted to the left lower extremity. 22:40 VAN Scoring: Arm Drift: Severe drift Visual Disturbance: No visual disturbance noted. jb4 Aphasia: Patient exhibits both expressive and receptive aphasia. Provider notified of +VAN scoring. 22:40 [facility] Swallow Protocol Brief Cognitive Screen What is your name? Normal, Where are you jb4 right now? Abnormal: Oriented to person. What year is it? Abnormal: Does not know the year, oriented to person. Oral Mechanism Examination Facial Symmetry: Normal, Motion: Normal, Lip Closure: Normal, Oral Mechanism Result: Normal. 3 oz Water Swallow Challenge: Pt able to drink all water without stopping, coughing, choking or throat clearing: Yes Result: PASS. TNKase (Tenecteplase) Screening: Contraindications: Patient reports onset of signs and symptoms of stroke greater than 6 hours ago: Yes. 09/20 00:00 Reassessment: Patient appears in no apparent distress at this time. No changes from jb4 previously documented assessment. Patient and/or family updated on plan of care and expected duration. Pain level reassessed. Vital Signs: 09/19 22:14 BP 172 / 88; Pulse 80; Resp 20; Temp 97.8(TE); Pulse Ox 96% on R/A; Pain 8/10; jb4 23:00 BP 171 / 99; Pulse 79; Resp 16; Pulse Ox 96% on R/A; jb4 09/20 00:00 BP 178 / 92; Pulse 69; Resp 16; Pulse Ox 98% on R/A; jb4 09/19 22:14 Pain Scale: Adult jb4 NIH Stroke Scale Scores: 09/19 22:40 NIHSS Score: 5 jb4 ED Course: 21:46 Patient arrived in ED. sb4 21:47 Yesenia Cardoso MD is Attending Physician. sp3 22:02 CT Stroke Brain w/o Contrast In Process Unspecified. EDMS 22:02 CT Head Angio In Process Unspecified. EDMS 22:14 Vin Beck, RN is Primary Nurse. jb4 22:14 Arm band placed on right wrist. EKG completed in triage. Results shown to MD. jb4 22:18 Triage completed. jb4 22:18 Patient has correct armband on for positive identification. Placed in gown. Bed in low jb4 position. Call light in reach. Side rails up X 1. Client placed on continuous cardiac and pulse oximetry monitoring. NIBP monitoring applied. fig washer on. 22:29 Stroke CXR 1 View In Process Unspecified. EDMS 22:29 Hip Left 2 View XRAY In Process Unspecified. EDMS 22:29 Pelvis XRAY In Process Unspecified. EDMS 22:29 Humerus Left XRAY In Process Unspecified. EDMS 22:29 Forearm Left XRAY In Process Unspecified. EDMS 23:02 Nik Portillo is Hospitalizing Provider. sp3 09/20 00:04 Dyer cath inserted, using sterile technique, 16 Fr., by ED staff, balloon inflated, to jb4 gravity drainage, urine specimen collected. Patient tolerated well. 00:35 No provider procedures requiring assistance completed. Patient admitted, IV remains in jb4 place. Administered Medications: 09/19 22:52 Drug: Aspirin PO 325 mg Route: PO; jb4 Medication: 22:18 VIS not applicable for this client. jb4 Outcome: 23:06 Decision to Hospitalize by Provider. sp3 09/20 00:35 Admitted to Med/surg accompanied by nurse, via stretcher, room 232, with chart. jb4 Condition: stable Discharge instructions given to patient, Instructed on the need for admit, Demonstrated understanding of instructions. 00:36 Patient left the ED. jb4 NIH Stroke Scale - NIH Stroke Score Date: 09/19/2022 Time: 22:40 Total Score = 5 10. Dysarthria (speech clarity - read or repeat words) - 0(Normal) 11. Extinction and Inattention (visual/tactile/auditory/spatial/personal) - 0(No abnormality) 1a. Level of Consciousness (LOC) - 0(Alert) 1b. Level of Consciousness (LOC) (Month \T\ Age) - 0(Both) 1c. LOC Commands (Open \T\ Closes Eyes/Assembly Lead Person) - 0(Both) 2. Best Gaze (Lateral Gaze Paresis) - 0(Normal) 3. Visual Field Loss - 0(No visual loss) 4. Facial Palsy - 0(Normal) 5a. Left Arm: Motor (10-second hold) - 3(No effort against gravity) 5b. Right Arm: Motor (10-second hold) - 0(No drift) 6a. Left Leg: Motor (5-second hold - always test supine) - UN(Amputation, joint fusion) - Notes: Deformity noted to the hip, extremity is shortended and externally rotated. 6b. Right Leg: Motor (5-second hold - always test supine) - 0(No drift) 7. Limb Ataxia (finger/nose \T\ heel/pal - test with eyes open) - 1(Present in one limb) 8. Sensory Loss (pinprick arms/legs/face) - 0(Normal) 9. Best Language: Aphasia (description/naming/reading) - 1(Mild to moderate aphasia) Initials: jb4 Signatures: Dispatcher [employer] Vin Garcia RN RN jb4 Yesenia Cardoso MD MD sp3 Kelley Preciado PA-C PAJose Martin sb4
--- NOTE | 2022-09-19 23:08 | RAD REPORT ---
EXAM DESCRIPTION: RAD - Forearm Left - 09/19/2022 10:31 pm CLINICAL HISTORY: PAIN COMPARISON: No comparisons TECHNIQUE: Left forearm, 2 views. FINDINGS: No fracture is identified. There is no dislocation or periosteal reaction noted. Advanced degenerative changes at the wrist are noted. No foreign body or other soft tissue abnormality. IMPRESSION: No acute osseous abnormality. Advanced degenerative changes at the wrist.
[2022-09-19 23:34] LABS: SARS-CoV-2 Antigen Rapid Res Negative (Negative)
--- NOTE | 2022-09-19 23:35 | P.HP ---
Certification for Inpatient Patient admitted to: Observation With expected LOS: <2 Midnights Patient will require the following post-hospital care: None Practitioner: I am a practitioner with admitting privileges, knowledge of patient current condition, hospital course, and medical plan of care. Services: Services provided to patient in accordance with Admission requirements found in Title 42 Section 412.3 of the Code of Federal Regulations Patient History Date of Service: 09/20/22 Reason for admission: CVA History of Present Illness: Ms. 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 All imaging was negative- head CT, head CTA, pelvis xray, hip xray, forearm xray, humerus xray. Her labs are significant for WBC 15 with left shift and glucose 280. Strength in the left side has improved, but she does remained confused- she is alert and oriented x 2 during my assessment, very slow to answer questions, cannot give me much history. She lives at home with her son and I have tried contacting him but have not heard back. We will admit for further management. Allergies No Known Allergies Allergy (Verified 05/01/20 00:30) Home medications list reviewed: Yes Home Medications: Acetaminophen with Codeine [Tylenol with Codeine #4 Tablet] 2 each PO QID PRN 05/01/20 Metoprolol Tartrate 100 mg PO DAILY 05/01/20 Ropinirole HCl 2 mg PO BEDTIME 05/01/20 predniSONE [Prednisone*] 5 mg PO DAILY 05/01/20 Cefdinir [Omnicef] 300 mg PO BID #10 capsule 05/02/20 Insulin Glargine,Hum.rec.anlog [Lantus] 15 unit SQ BREAKFAST #2 vial 05/02/20 Methylprednisolone [Medrol dosepack] 4 mg PO DIRECTED #1 na 05/03/20 Metoclopramide HCl [Reglan] 10 mg PO AC #30 tablet 05/03/20 - Past Medical/Surgical History -: Hypertension -: Rheumatoid arthritis -: Right hip replacement Psychosocial/ Personal History: Patient lives with her son - Social History Alcohol use: No CD- Drugs: No Caffeine use: Yes Place of Residence: Home Review of Systems is unable to be obtained Physical Examination - Vital Signs Temperature: 97.8 F Blood Pressure: 172/88 Pulse: 80 Respirations: 20 Pulse Ox (%): 96 - Physical Exam General: Alert, In no apparent distress, Oriented x2, Confused HEENT: Atraumatic, Normocephalic, PERRLA, EOMI, Sclerae nonicteric Neck: Supple, 2+ carotid pulse no bruit Respiratory: Clear to auscultation bilaterally, Normal air movement Cardiovascular: Regular rate/rhythm, Normal S1 S2 Gastrointestinal: Normal bowel sounds, No tenderness Musculoskeletal: No tenderness Integumentary: No rashes Neurological: Abnormal strength, Abnormal affect - Studies Laboratory Data (last 24 hrs) 09/19/22 22:06: PT 11.3, INR 1.03, APTT 25.6 09/19/22 22:06: WBC 15.60 H, Hgb 12.8, Hct 38.6, Plt Count 341 09/19/22 22:06: Sodium 133 L, Potassium 4.1, BUN 13, Creatinine 0.58, Glucose 281 H Assessment and Plan - Problems (Diagnosis) (1) CVA (cerebral vascular accident) Current Visit: Yes Status: Acute Qualifiers: CVA mechanism: unspecified Qualified Code(s): I63.9 - Cerebral infarction, unspecified (2) Rheumatoid arthritis Current Visit: Yes Status: Chronic Qualifiers: Rheumatoid arthritis location: multiple sites Rheumatoid factor presence: unspecified presence Qualified Code(s): M06.9 - Rheumatoid arthritis, unspec ified (3) Hypertension Current Visit: Yes Status: Chronic Qualifiers: Hypertension type: primary hypertension Qualified Code(s): I10 - Essential (primary) hypertension - Plan Patient is admitted for further management of CVA rule out. Neurology consulted. Daily aspirin, plavix, folic acid, and statin. Physical therapy and speech therapy consulted. Frequent neurologic checks. She passed swallow study, is eating/drinking without any difficulty. Obtain MRI brain, echocardiogram, lipid panel, A1c. Leukocytosis likely secondary to daily prednisone use although she does have a left shift. Covid/flu pending. Blood cultures obtained. Urine pending- UA and UDS. She is prescribed tylenol 4 for her RA. Monitor and replete electrolytes per protocol. Of note- left leg is slightly shortened and externally rotated on exam. She complains of left hip pain. Xray showed no acute fractures noted on imaging although left hip xray showed destructive changes and articular collapse of the femoral head, with osseous remodeling of the acetabulum, suggestive of advanced sequelae of remote fracture or avascular necrosis. Consider MRI/ortho consult if symptoms persist. Discharge Plan: Home Plan to discharge in: 24 Hours - Advance Directives Does patient have a Living Will: No Does patient have a Durable POA for Healthcare: No - Code Status/Comfort Care Code Status Assessed: Yes Code Status: Full Code Physician Review: Patient Assessed, Agree with Above Assessment and Plan Critical Care: No Time Spent Managing Pts Care (In Minutes): 50
[2022-09-19] MEDS ORDERED: ACETAMINOPHEN 500 MG TAB PO PRN (23:57)
[2022-09-19] MEDS ORDERED: ONDANSETRON 4 MG/2 ML VIAL IV PRN (23:57)
[2022-09-20 01:13] LABS: Barbiturates NEGATIVE (NEGATIVE); Benzodiazepines NEGATIVE (NEGATIVE); Cocaine NEGATIVE (NEGATIVE); METHAMPHETAM NEGATIVE (NEGATIVE); Methadone NEGATIVE (NEGATIVE); Opiates POSITIVE (NEGATIVE); Phencyclidine NEGATIVE (NEGATIVE); THC Cannibis POSITIVE (NEGATIVE)
[2022-09-20 01:15] LABS: Urine Bacteria >50 /HPF (<20); Urine Bilirubin NEGATIVE (Negative); Urine Blood 1+ (Negative); Urine Clarity Turbid (Clear); Urine Color Yellow (Yellow); Urine Glucose 4+ (Over) (Negative); Urine Mucus Slight /HPF (None Seen); Urine Protein 2+ (Negative); Urine Urobilinogen Normal (Normal); Urine WBC Clump Few /HPF (None Seen)
[2022-09-20 01:19] VITALS: BMI 22.0
[2022-09-20 01:20] LABS: Specific Gravity > 1.035 (1.005-1.030)
[2022-09-20 01:33] LABS: Blood Morphology Comment NOT SEEN (NOT SEEN); Platelet Estimate ADEQ
[2022-09-20] MEDS: INSULIN -REGULAR HUMAN 50 UNIT/0.5 ML ML SQ SCH ×4 (01:45→20:27)
[2022-09-20] MEDS: NA CHLORIDE 0.9% 1,000 ML IV SCH ×3 (01:45→22:28)
[2022-09-20] MEDS: CEFTRIAXONE 1,000 MG in NA CHLORIDE 0.9% 50 ML IVPB SCH ×2 (02:26→10:47)
[2022-09-20 04:16] LABS: Hematocrit 38.2 % (36.0-45.0); Lymphocytes % 16.1 % (15.3-44.8); MCV 89.9 fL (80-100); MPV 8.1 fL (7.6-11.3); RBC Red Blood Cell Count 4.24 M/uL (3.86-4.86)
[2022-09-20 04:47] LABS: Magnesium 1.9 mg/dL (1.6-2.4); Phosphorus 2.4 mg/dL (2.5-4.9); Potassium 3.4 mEq/L (3.5-5.1); T4,Total 11.2 ug/dL (4.8-13.9); Thyroid Stimulating Hormone 0.526 uIU/mL (0.358-3.740)
[2022-09-20] MEDS ORDERED: KCL 20 MEQ/100 mL IVPB 20 MEQ/100 ML BAG IV ONE (08:00)
[2022-09-20] MEDS ORDERED: FOLIC ACID 5 MG/ML VIAL IVP SCH (09:00)
[2022-09-20] MEDS ORDERED: POTASSIUM PHOS IN 0.9 % NACL 15 MMOL/250 ML BAG IV ONE (10:00)
[2022-09-20] MEDS: ENOXAPARIN 40 MG/0.4 ML SQ SCH (10:46)
[2022-09-20] MEDS: FOLIC ACID 1 MG in NA CHLORIDE 0.9% 50 ML IV SCH (10:47)
[2022-09-20] MEDS: ASPIRIN EC 81 MG TAB PO SCH (10:48)
[2022-09-20] MEDS: CLOPIDOGREL 75 MG TABLET PO SCH (10:48)
[2022-09-20] MEDS ORDERED: LORazepam 2 MG/ML VIAL IV ONE (12:32)
--- NOTE | 2022-09-20 13:23 | P.PN ---
Subjective Date of Service: 09/20/22 Chief Complaint: CVA Patient seen and examined. She is oriented to person and place. Her speech appears to be hesitant-coul be mild aphasia. Physical Examination - Vital Signs Temperature: 98.1 F Blood Pressure: 159/76 Pulse: 69 Respirations: 16 Pulse Ox (%): 98 - Studies Laboratory Data (last 24 hrs) 09/19/22 22:06: PT 11.3, INR 1.03, APTT 25.6 09/19/22 22:06: WBC 15.60 H, Hgb 12.8, Hct 38.6, Plt Count 341 09/19/22 22:06: Sodium 133 L, Potassium 4.1, BUN 13, Creatinine 0.58, Glucose 281 H Microbiology Data (last 24 hrs): 09/19/22 23:40 Blood - Blood Anaerobic Blood Culture - Final 09/19/22 23:05 Nasopharnyx Influenza Type A Antigen Screen - Final 09/19/22 23:05 Nasopharnyx Influenza Type B Antigen Screen - Final Assessment And Plan - Current Problems (Diagnosis) (1) Acute cystitis without hematuria Current Visit: Yes Status: Acute (2) CVA (cerebral vascular accident) Current Visit: Yes Status: Acute Qualifiers: CVA mechanism: unspecified Qualified Code(s): I63.9 - Cerebral infarction, unspecified (3) Hypertension Current Visit: Yes Status: Chronic Qualifiers: Hypertension type: primary hypertension Qualified Code(s): I10 - Essential (primary) hypertension (4) Rheumatoid arthritis Current Visit: Yes Status: Chronic Qualifiers: Rheumatoid arthritis location: multiple sites Rheumatoid factor presence: unspecified presence Qualified Code(s): M06.9 - Rheumatoid arthritis, unspecified (5) Elevated white blood cell count Current Visit: No Status: Acute - Plan Physical Exam General: Alert, In no apparent distress, Oriented x2, Confused HEENT: Atraumatic, Normocephalic, PERRLA, EOMI, Sclerae nonicteric Neck: Supple, 2+ carotid pulse no bruit Respiratory: Clear to auscultation bilaterally, Normal air movement Cardiovascular: Regular rate/rhythm, Normal S1 S2 Gastrointestinal: Normal bowel sounds, No tenderness Musculoskeletal: No tenderness Integumentary: No rashes Neurological: Abnormal strength, Abnormal affect. Plan: Acute cystitis without hematuria/leukocytosis IV Rocephin IV hydration Follow urine culture. Acute CVA Neurology input appreciated Aspirin, Plavix, folic acid and lipitor. Left lower extremity pain and weakness. Hip x-ray shows destructive changes and articular collapse of the femoral head, with osseous remodeling of the acetabulum, suggestive of advanced sequelae of remote fracture or avascular necrosis. Destructive left hip joint changes could be contributing to the weakness. Noted patient is on chronic prednisone therapy Awaiting MRI of the brain. Pain management as needed. Continue PT. Rheumatoid arthritis Stable. Follow-up with rheumatology as outpatient. Essential hypertension Permissive hypertension until acute CVA is ruled out.
--- NOTE | 2022-09-20 13:25 | CON ---
Reason For Consultation: Consultation called because of possible stroke. History Of Present Illness: Ms. Arredondo is a 61-year-old patient with hypertension, diabetes melli tus, rheumatoid arthritis who comes to [facility] with confusion after a fall and left-sided weakness and numbness with symptoms beginning more than 8 hours prior to arrival in the hospital. S he was out of the window for intravenous intervention. Her head CT scan was negative for any acute i schemic hemorrhagic change. Study showed small vessel ischemic disease. CT angiogram of her head di d not show evidence of large vessel occlusion or flow limiting stenosis. She was treated medically w ith aspirin 160 mg, Lipitor 40 mg, Plavix 75 mg, and Lovenox for DVT prophylaxis and IV fluids. Her urinalysis indicated urinary tract infection with esterase 500, red blood cells 11 to 20, white blood cells greater than 50, bacteria greater than 50, 2+ nitrites, 1+ blood, 1+ ketones, glucose over 4+, specific gravity elevated at 1.035, clarity was turbid. She had a urine drug screen positive for ma rijuana and opiates. COVID testing was negative. Past Medical History: As noted above. Allergies: NO KNOWN DRUG ALLERGIES. Medications: At home: Tylenol No. 4 every 4 hours as needed, metoprolol 100 mg twice daily, ropinir ole 2 mg at bedtime, prednisone 5 mg daily, Omnicef 300 mg twice daily, Lantus 15 units at breakfast. Medrol Dosepak, she had been completing it and actually finished that, and Reglan 10 mg at night. Social History: Patient does smoke marijuana. She has had opiates in the system, [facility] and drinks caffeinated beverages. She lives with her son. Family History: Noncontributory. Past Surgical History: No recent surgeries. Review of Systems: No recent fevers, chills, nausea, vomiting, myalgias, arthralgias. Has diffuse weakness, confusion, and more left-sided weakness and numbness as noted. Physical Examination: Vital Signs: Blood pressure 159/76, pulse 69, respiratory rate 16, temperature 98.1, oxygen saturati on 98%. Weight 136 pounds, height 5 feet 5 inches, BMI 22. General: Ms. Arredondo is lying in bed. She has no significant distress. HEENT: She is normocephalic, atraumatic. She does have some bruising on the left arm where she fell and some edema in the left lower extremity more than the right lower extremity, that side is the wea k side. In terms of cranial nerves, the face appears symmetric with fair excursions bilaterally. Ant armstrong has no obvious cranial nerve deficits, although the communication is slightly slower. She has some difficulty with full quick comprehension and expression. Her motor examination in the right upper a nd lower extremity, she appears at 5/5 strength, at least 4+, difficult to fully assess and she did n ot exert fully. On the left upper extremity, it is 3/5 to 4. On the left lower extremity, 2/5 proxi jay jay and distally. Sensation appears decreased. She has less sensation on the left upper and lower extremity compared to the right. She has extinction noted with the left side being unable to detect when simultaneously touching both sides and that is in the upper and lower extremities. She has int act coordination, although weakness limits that in the right lower extremity. She ambulated with a g ait belt and the physical therapist. She did have a bedside swallow evaluation with her findings of being able to take a regular diet with regular consistency and thin liquids with upright [address], small bites, alternate solids or liquids. Laboratory Studies: White blood cell count 18,000 with a left shift of 78.7 neutrophils, hemoglobin 12.5, hematocrit 38.2. INR 1.03. Chemistries: Sodium 134, potassium 3.4, chloride 105, carbon diox mariano 27, BUN 13, creatinine 0.39, glucose is ranging up to 218. Hemoglobin A1c very elevated at 12.6, calcium 8.4, phosphorus 2.4, magnesium 1.9. LDL 86, HDL 68. TSH 0.526, thyroxine which is T4 11.2. Urinalysis is as mentioned before and toxicology as well, as mentioned. She did have x-ray of the humerus on the left due to a fall. It is negative for any fracture. Imaging study of the rest of e hip and pelvis in terms of x-rays show no acute fractures. Assessment: Ms. Arredondo is a 61-year-old patient with uncontrolled diabetes, hypertension, who skye ears to have a significant right hemispheric stroke likely impacting the middle cerebral artery sayra tory producing dense paresis of the left side. There is likely also anterior or frontal lobe involve ment as the left leg is more weak than the left arm and face. She has again uncontrolled diabetes an d hypertension. Plan: 1.Aspirin 81 mg, Plavix 75 mg, folate 1 mg and statin. Lipitor 40 mg at bedtime. 2.Lovenox 40 mg subcutaneously daily. 3.She appeared to have urinary tract infection and she will continue with Rocephin as per primary te am. 4.She is cleared by Speech. 5.She should have physical and occupational therapy and will likely require significant therapy to baltazar kaur to recover use of her legs for transfers or ability to perform activities of daily living, to ge t dressed in both upper and lower body, to get on and off toilet or chair and to ambulate or mobilize household distances and go up and down steps and therefore she should be considered as a candidate f or inpatient rehabilitation. 6.She will be followed while in hospital. SHARON Voice ID: [id number] Report ID: [id number]
[2022-09-20] MEDS ORDERED: HYDROMORPHONE HCL 1 MG/ML INJ IV ONE (13:47)
--- NOTE | 2022-09-20 15:05 | RAD REPORT ---
EXAM DESCRIPTION: MRI - Brain W/Wo Cont - 09/20/2022 2:34 pm CLINICAL HISTORY: CVA COMPARISON: MRA Head Wo Cont dated 09/20/2022; MRA Neck W/Wo Cont dated 09/20/2022 TECHNIQUE: Multi-sequence, multiplanar MR imaging of the brain was performed with contrast. FINDINGS: No intracranial hemorrhage, hydrocephalus, or extra-axial fluid collection.Moderate conflu ent T2/FLAIR hyperintensity in the periventricular and deep white matter is present compatible with c hronic microvascular ischemic changes. No edema or shift of midline structures. No intracranial mass. [place] area of restricted diffusion right periventricular white matter measures 16 mm. In addition t here is a 15 mm acute infarct right basal ganglia adjacent to the posterior limb of the right interna l capsule.. No hemorrhagic component is seen. The midline structures are normally formed. Mastoid air cells and paranasal sinuses are clear. Post-contrast images show no abnormal enhancement to suggest tumor or infection. IMPRESSION: There are 2 acute CVA seen right basal ganglia as detailed. No pathologic post-contrast enhancement suspected.
--- NOTE | 2022-09-20 15:13 | RAD REPORT ---
EXAM DESCRIPTION: MRI - MRA Head Wo Cont - 09/20/2022 2:34 pm CLINICAL HISTORY: CVA CVA COMPARISON: Head angio dated 09/19/2022 FINDINGS: 3D noncontrast [id number] MR angiography of the [place] was performed. No evidence of large vessel occlusion. No aneurysm, flow-limiting stenosis or vascular malformation i s seen. Forward flow seen in codominant vertebral arteries. The visualized dural venous sinuses appear patent. IMPRESSION: No significant flow abnormality of the [place] is identified.
--- NOTE | 2022-09-20 15:15 | RAD REPORT ---
EXAM DESCRIPTION: MRI - MRA Neck W/Wo Cont - 09/20/2022 2:34 pm CLINICAL HISTORY: CVA Headache, drowsiness COMPARISON: No comparisons FINDINGS: Contrast enhance 2D [id number] MR angiography of the neck vessels was performed. A left aortic arch is noted with normal great vessels origin pattern. Both common carotid arteries are normal. Both subclavian arteries are normal. Mild narrowing of the r ight carotid bulb suggests stenosis less than 50% based on NASCET criteria. IMPRESSION: Mild narrowing of the right carotid bulb less than 50% based on NASCET criteria. No significant flow abnormality. NASCET criteria used. Mild 0-49% stenosis Moderate 50-69% stenosis Severe 70-99% stenosis
[2022-09-20] MEDS ORDERED: GLUCAGON 1 MG/VIAL IM PRN (17:08)
[2022-09-20] MEDS ORDERED: D10W 250 ML BAG IV PRN (17:37)
[2022-09-20] MEDS: ATORVASTATIN 20 MG TAB PO SCH (20:29)
[2022-09-20] MEDS: CODEINE 30MG/APAP 300MG TAB PO PRN (22:08)
[2022-09-21 03:08] LABS: Absolute Lymphocytes (CBC) 3.9 K/uL (0.7-4.9); Hematocrit 40.5 % (36.0-45.0); Lymphocytes % 32.8 % (15.3-44.8); MCV 89.7 fL (80-100); MPV 7.6 fL (7.6-11.3); RBC Red Blood Cell Count 4.51 M/uL (3.86-4.86)
[2022-09-21 03:27] LABS: Potassium 3.4 mEq/L (3.5-5.1)
[2022-09-21] MEDS ORDERED: HYDROMORPHONE HCL 1 MG/ML INJ IV ONE (04:51)
[2022-09-21] MEDS ORDERED: METOPROLOL TAR 25 MG TAB PO ONE (04:51)
[2022-09-21 05:21] LABS: Phosphorus 2.9 mg/dL (2.5-4.9)
[2022-09-21] MEDS: INSULIN -REGULAR HUMAN 50 UNIT/0.5 ML ML SQ SCH ×4 (07:30→21:17)
[2022-09-21] MEDS: CEFTRIAXONE 1,000 MG in NA CHLORIDE 0.9% 50 ML IVPB SCH (08:31)
[2022-09-21] MEDS: FOLIC ACID 1 MG in NA CHLORIDE 0.9% 50 ML IV SCH (08:31)
[2022-09-21] MEDS: ENOXAPARIN 40 MG/0.4 ML SQ SCH (08:31)
[2022-09-21] MEDS: CODEINE 30MG/APAP 300MG TAB PO PRN (08:31)
[2022-09-21] MEDS: ASPIRIN EC 81 MG TAB PO SCH (08:31)
[2022-09-21] MEDS: CLOPIDOGREL 75 MG TABLET PO SCH (08:32)
[2022-09-21] MEDS ORDERED: POTASSIUM 25 MEQ EFFERV TAB PO ONE (09:00)
[2022-09-21] MEDS: NA CHLORIDE 0.9% 1,000 ML IV SCH ×2 (12:01→23:21)
--- NOTE | 2022-09-21 12:15 | P.PN ---
Subjective Date of Service: 09/21/22 Chief Complaint: CVA Patient patient is complaining of uncontrolled pain in the left hip. She also reports pain in the other joints of the lower extremities. Physical Examination - Vital Signs Temperature: 98.3 F Blood Pressure: 168/91 Pulse: 70 Respirations: 14 Pulse Ox (%): 98 - Studies Microbiology Data (last 24 hrs): 09/19/22 23:40 Blood - Blood Anaerobic Blood Culture - Final Assessment And Plan - Current Problems (Diagnosis) (1) Acute cystitis without hematuria Current Visit: Yes Status: Acute (2) CVA (cerebral vascular accident) Current Visit: Yes Status: Acute Qualifiers: CVA mechanism: unspecified Qualified Code(s): I63.9 - Cerebral infarction, unspecified (3) Hypertension Current Visit: Yes Status: Chronic Qualifiers: Hypertension type: primary hypertension Qualified Code(s): I10 - Essential (primary) hypertension (4) Rheumatoid arthritis Current Visit: Yes Status: Chronic Qualifiers: Rheumatoid arthritis location: multiple sites Rheumatoid factor presence: unspecified presence Qualified Code(s): M06.9 - Rheumatoid arthritis, unspecified (5) Elevated white blood cell count Current Visit: No Status: Acute - Plan Physical Exam General: Alert, In no apparent distress, Oriented x3. Neck: Supple, 2+ carotid pulse no bruit Respiratory: Clear to auscultation bilaterally, Normal air movement Cardiovascular: Regular rate/rhythm, Normal S1 S2 Gastrointestinal: Normal bowel sounds, No tenderness Musculoskeletal: Left lower extremity is shortened and laterally rotated. Integumentary: No rashes Neurological: Decreased strength in both lower extremities, worse on the left. Diagnosis Acute CVA Acute cystitis without hematuria Leukocytosis Rheumatoid arthritis Left hip arthritis/avascular necrosis Acute cystitis without hematuria/leukocytosis Urine culture is growing gram-negative rods Continue IV Rocephin Diet as tolerated. Follow urine culture. Acute CVA Neurology input appreciated Aspirin, Plavix, folic acid and lipitor. Left lower extremity pain and weakness. Hip x-ray shows destructive changes and articular collapse of the femoral head, with osseous remodeling of the acetabulum, suggestive of advanced sequelae of remote fracture or avascular necrosis. Destructive left hip joint changes could be contributing to the weakness. Noted patient is on chronic prednisone therapy MRI of the brain: 2 acute CVA in the right basal ganglia. No problem with swallowing. Patient has not been out of bed yet due to pain in the left hip. Pain management as needed-[place] prn and premedicate before therapy Continue PT. Patient wants a penitentiary to be out of the options for disposition, stating she would rather be home than go to a penitentiary. Rheumatoid arthritis Stable. Follow-up with rheumatology as outpatient. Essential hypertension Permissive hypertension. Target systolic blood pressure of 160. DVT prophylaxis: Lovenox
[2022-09-21] MEDS ORDERED: LABETALOL 20 MG/4ML SYRINGE IV PRN (12:36)
[2022-09-21] MEDS: INSULIN GLARGINE 100 UNIT/ML SQ SCH (12:40)
[2022-09-21] MEDS: HYDROCODONE/APAP 5/325 MG TAB PO PRN ×2 (13:16→19:39)
[2022-09-21] MEDS ORDERED: CYCLOBENZAPRINE 10 MG TAB PO ONE (18:52)
[2022-09-21] MEDS: GABAPENTIN 300 MG CAP PO SCH (21:15)
[2022-09-21] MEDS: ATORVASTATIN 20 MG TAB PO SCH (21:16)
[2022-09-21] MEDS: ROPINIROLE HCL 1 MG TAB PO SCH (21:16)
[2022-09-22 06:54] LABS: Potassium 3.7 mEq/L (3.5-5.1)
[2022-09-22] MEDS: INSULIN -REGULAR HUMAN 50 UNIT/0.5 ML ML SQ SCH ×4 (07:30→21:00)
[2022-09-22] MEDS: ENOXAPARIN 40 MG/0.4 ML SQ SCH (08:39)
[2022-09-22] MEDS: HYDROCODONE/APAP 5/325 MG TAB PO PRN ×2 (08:39→21:51)
[2022-09-22] MEDS: FOLIC ACID 1 MG in NA CHLORIDE 0.9% 50 ML IV SCH (08:39)
[2022-09-22] MEDS: INSULIN GLARGINE 100 UNIT/ML SQ SCH (08:40)
[2022-09-22] MEDS: METOPROLOL TAR 50 MG TAB PO SCH (08:40)
[2022-09-22] MEDS: ASPIRIN EC 81 MG TAB PO SCH (08:40)
[2022-09-22] MEDS: GABAPENTIN 300 MG CAP PO SCH ×2 (08:40→21:52)
[2022-09-22] MEDS: CEFTRIAXONE 1,000 MG in NA CHLORIDE 0.9% 50 ML IVPB SCH (08:40)
[2022-09-22] MEDS: CLOPIDOGREL 75 MG TABLET PO SCH (08:40)
[2022-09-22] MEDS ORDERED: POTASSIUM CL SA 10 MEQ TAB PO ONE (09:00)
[2022-09-22] MEDS: MORPHINE 2 MG/ML SYR IV PRN ×4 (09:46→22:52)
[2022-09-22] MEDS: NA CHLORIDE 0.9% 1,000 ML IV SCH (09:46)
--- NOTE | 2022-09-22 13:40 | P.PN ---
Subjective Date of Service: 09/22/22 Chief Complaint: CVA Patient is complaining of persistent pain in the left hip. Physical Examination - Vital Signs Temperature: 97.8 F Blood Pressure: 174/91 Pulse: 65 Respirations: 18 Pulse Ox (%): 98 - Studies Microbiology Data (last 24 hrs): 09/20/22 00:07 Clean Catch Urine [place] Count - Final >100,000 CFU/ML. 09/20/22 00:07 Clean Catch Urine - Final Escherichia Coli Assessment And Plan - Current Problems (Diagnosis) (1) Acute cystitis without hematuria Current Visit: Yes Status: Acute (2) CVA (cerebral vascular accident) Current Visit: Yes Status: Acute Qualifiers: CVA mechanism: unspecified Qualified Code(s): I63.9 - Cerebral infarction, unspecified (3) Hypertension Current Visit: Yes Status: Chronic Qualifiers: Hypertension type: primary hypertension Qualified Code(s): I10 - Essential (primary) hypertension (4) Rheumatoid arthritis Current Visit: Yes Status: Chronic Qualifiers: Rheumatoid arthritis location: multiple sites Rheumatoid factor presence: unspecified presence Qualified Code(s): M06.9 - Rheumatoid arthritis, unspecified (5) Elevated white blood cell count Current Visit: No Status: Acute - Plan Physical Exam General: Alert, In no apparent distress, Oriented x3. Respiratory: Clear to auscultation bilaterally, Normal air movement Cardiovascular: Regular rate/rhythm, Normal S1 S2 Gastrointestinal: Normal bowel sounds, No tenderness Musculoskeletal: Left lower extremity is shortened and laterally rotated. Integumentary: No rashes Neurological: Decreased strength in both lower extremities, worse on the left. Diagnosis Acute CVA Acute cystitis without hematuria Leukocytosis Rheumatoid arthritis Left hip arthritis/avascular necrosis Acute cystitis without hematuria/leukocytosis Urine culture grew pansensitive E. coli. Continue IV Rocephin Diet as tolerated. Acute CVA Neurology input appreciated Aspirin, Plavix, folic acid and lipitor. Left lower extremity pain and weakness. Hip x-ray shows destructive changes and articular collapse of the femoral head, with osseous remodeling of the acetabulum, suggestive of advanced sequelae of remote fracture or avascular necrosis. Patient stated she was told by her chief dog license inspector her left hip joint is a irrepairable. Destructive left hip joint changes could be contributing to the weakness. Noted patient is on chronic prednisone therapy MRI of the brain: 2 acute CVA in the right basal ganglia. No problem with swallowing. Patient has not been out of bed yet due to pain in the left hip. Pain management as needed-[place] and IV morphine prn and premedicate before therapy Continue PT. Patient wants care home to be out of the options for disposition, stating she would rather be home than go to a care home. Social service consulted for disposition. Rheumatoid arthritis Stable. Follow-up with rheumatology as outpatient. Essential hypertension Permissive hypertension. Target systolic blood pressure of 160. DVT prophylaxis: Lovenox
--- NOTE | 2022-09-22 17:37 | EKG ---
Test Date: 2022-09-19 Test Time: 22:46:32 [place]aggageman: COLE MEASUREMENT RESULTS: Intervals: Rate: 78 OR: 152 QRSD: 74 QT: 394 QTc: 449 [place]: P: -1 OR: 152 QRS: 61 T: -7 INTERPRETIVE STATEMENTS: Sinus rhythm Nonspecific T wave abnormality Abnormal ECG Compared to ECG 05/01/2020 09:31:19 T-wave abnormality now present Atrial fibrillation no longer present ST (T wave) deviation no longer present Possible ischemia no longer present Prolonged QT interval no longer present Electronically Signed On 09-22-22 17:34:49 CDT by Jarad Frey
[2022-09-22] MEDS: ROPINIROLE HCL 1 MG TAB PO SCH (21:00)
[2022-09-22] MEDS: ATORVASTATIN 20 MG TAB PO SCH (21:51)
[2022-09-23] MEDS: MORPHINE 2 MG/ML SYR IV PRN ×2 (04:00→09:38)
[2022-09-23 04:03] LABS: Potassium 3.6 mEq/L (3.5-5.1)
[2022-09-23] MEDS: NA CHLORIDE 0.9% 1,000 ML IV SCH ×2 (04:03→07:57)
[2022-09-23] MEDS ORDERED: INSULIN GLARGINE 100 UNIT/ML SQ SCH (08:00)
[2022-09-23] MEDS ORDERED: CEFTRIAXONE 1000 MG/VIAL ONE (08:47)
[2022-09-23] MEDS ORDERED: POTASSIUM CL SA 10 MEQ TAB PO ONE (09:00)
[2022-09-23] MEDS: INSULIN -REGULAR HUMAN 50 UNIT/0.5 ML ML SQ SCH ×2 (09:35→12:18)
[2022-09-23] MEDS: METOPROLOL TAR 50 MG TAB PO SCH (09:36)
[2022-09-23] MEDS: ASPIRIN EC 81 MG TAB PO SCH (09:36)
[2022-09-23] MEDS: CEFTRIAXONE 1,000 MG in NA CHLORIDE 0.9% 50 ML IVPB SCH (09:36)
[2022-09-23] MEDS: GABAPENTIN 300 MG CAP PO SCH (09:36)
[2022-09-23] MEDS: CLOPIDOGREL 75 MG TABLET PO SCH (09:37)
[2022-09-23] MEDS: ENOXAPARIN 40 MG/0.4 ML SQ SCH (09:37)
[2022-09-23 10:52] VITALS: O2SAT 99
[2022-09-23] MEDS: FOLIC ACID 1 MG in NA CHLORIDE 0.9% 50 ML IV SCH (11:03)
[2022-09-23 11:57] VITALS: BP 155/94
--- NOTE | 2022-09-23 12:03 | P.DS ---
Admission Date: 09/21/22 Discharge Date: 09/23/22 Disposition: DC HOME/HOME HEALTH CARE Discharge Condition: FAIR Reason for Admission: CVA - Problems (1) Acute cystitis without hematuria Current Visit: Yes Status: Acute (2) CVA (cerebral vascular accident) Current Visit: Yes Status: Acute Qualifiers: CVA mechanism: unspecified Qualified Code(s): I63.9 - Cerebral infarction, unspecified (3) Hypertension Current Visit: Yes Status: Chronic Qualifiers: Hypertension type: primary hypertension Qualified Code(s): I10 - Essential (primary) hypertension (4) Rheumatoid arthritis Current Visit: Yes Status: Chronic Qualifiers: Rheumatoid arthritis location: multiple sites Rheumatoid factor presence: unspecified presence Qualified Code(s): M06.9 - Rheumatoid arthritis, unsp ecified (5) Elevated white blood cell count Current Visit: No Status: Acute Brief History of Present Illness: Ms. Arredondo is a 61 year old female with past medical history of hypertension and rheumatoid arthritis who presented to the emergency department via EMS with confusion, fall, and left sided weakness/numbness that began 8+ hours [employer]. All imaging was negative- head CT, head CTA, pelvis xray, hip xray, forearm xray, humerus xray. Her labs were significant for WBC 15 with left shift and glucose 280. Strength in the left side improved, but she remained confused, oriented x 2 during assessment, very slow to answer questions, could not give much history. She lives at home with her son. Patient admitted for further management. Hospital Course: Diagnosis Acute CVA Acute cystitis without hematuria Leukocytosis Rheumatoid arthritis Left hip arthritis/avascular necrosis Patient admitted to the medical floor and the following medical problems addressed: Acute cystitis without hematuria/leukocytosis Urine culture grew pansensitive E. coli. Patient treated with IV Rocephin. Diet as tolerated. Acute CVA Seen by neurology-Dr. Neri Patient placed on aspirin, Plavix, folic acid and lipitor. She has left lower extremity pain and weakness. Hip x-ray shows destructive changes and articular collapse of the femoral head, with osseous remodeling of the acetabulum, suggestive of advanced sequelae of remote fracture or avascular necrosis. Patient stated she was told by her transformation analyst her left hip joint is a irrepairable. Destructive left hip joint changes could be contributing to the weakness. Noted patient is on chronic prednisone therapy MRI of the brain: 2 acute CVA in the right basal ganglia. No problem with swallowing. Pain in the left hip limited PT. Pain management done with [place] and IV morphine prn. Patient declined inpatient rehab placement or skilled rehab placement and wants to go home with therapy Blood pressure readings improved. Rheumatoid arthritis Stable. Follow-up with rheumatology as outpatient. Essential hypertension Permissive hypertension done Blood pressure readings improved. Added lisinopril for better blood pressure control. Vital Signs/Physical Exam: Temp Pulse Resp BP Pulse Ox 96.8 F 66 18 155/94 H 98 09/23/22 04:00 09/23/22 11:56 09/23/22 09:38 09/23/22 11:56 09/23/22 09:38 General: Alert, In no apparent distress, Oriented x3 HEENT: Mucous membr. moist/pink Neck: JVD not distended Respiratory: Clear to auscultation bilaterally, Normal air movement Cardiovascular: Regular rate/rhythm, Normal S1 S2 Gastrointestinal: Soft and benign, Non-distended Integumentary: No cyanosis Neurological: Other (Bilateral lower extremity weakness, worse on the left. Motor examination limited by joint pains) Laboratory Data at Discharge: WBC 11.90 thou/uL (4.3-10.9) H 09/21/22 02:34 Hgb 13.1 g/dL (12.0-15.0) 09/21/22 02:34 Hct 40.5 % (36.0-45.0) 09/21/22 02:34 Plt Count 345 thou/uL (152-406) 09/21/22 02:34 PT 11.3 SECONDS (9.5-12.5) 09/19/22 22:06 INR 1.03 09/19/22 22:06 APTT 25.6 SECONDS (24.3-36.9) 09/19/22 22:06 Sodium 142 mEq/L (136-145) 09/23/22 02:40 Potassium 3.6 mEq/L (3.5-5.1) 09/23/22 02:40 BUN 7 mg/dL (7-18) 09/23/22 02:40 Creatinine 0.37 mg/dL (0.55-1.02) L 09/23/22 02:40 Glucose 200 mg/dL (74-106) H 09/23/22 02:40 Phosphorus 2.9 mg/dL (2.5-4.9) 09/21/22 02:34 Magnesium 1.9 mg/dL (1.6-2.4) 09/20/22 02:47 Triglycerides 73 mg/dL (<150) 09/20/22 02:47 Cholesterol 169 mg/dL (<200) 09/20/22 02:47 HDL Cholesterol 68 mg/dL (40-60) H 09/20/22 02:47 Cholesterol/HDL Ratio 2.49 09/20/22 02:47 Home Medications: Metoprolol Tartrate 100 mg PO DAILY 05/01/20 Ropinirole HCl 2 mg PO BEDTIME 05/01/20 predniSONE [Prednisone*] 5 mg PO DAILY 05/01/20 Insulin Glargine,Hum.rec.anlog [Lantus] 15 unit SQ BREAKFAST #2 vial 05/02/20 Metoclopramide HCl [Reglan] 10 mg PO AC #30 tablet 05/03/20 Aspirin [Aspirin EC 81 MG] 81 mg PO DAILY #30 tab 09/23/22 Atorvastatin Calcium [Lipitor*] 40 mg PO BEDTIME #30 tab 09/23/22 Cefpodoxime Proxetil 100 mg PO BID #6 tab 09/23/22 Clopidogrel Bisulfate [Plavix*] 75 mg PO DAILY #30 tab 09/23/22 Folic Acid 1 mg PO DAILY #30 tab 09/23/22 Gabapentin 300 mg PO BID #60 cap 09/23/22 Hydrocodone 5/APAP 325 [[place] 5/325*] 1 tab PO Q6H PRN #15 tab 09/23/22 lisinopriL [Prinivil*] 20 mg PO DAILY #30 tab 09/23/22 New Medications: Aspirin [Aspirin EC 81 MG] 81 mg PO DAILY #30 tab Cefpodoxime Proxetil 100 mg PO BID #6 tab Folic Acid 1 mg PO DAILY #30 tab Gabapentin 300 mg PO BID #60 cap Atorvastatin Calcium [Lipitor*] 40 mg PO BEDTIME #30 tab Hydrocodone 5/APAP 325 [[place] 5/325*] 1 tab PO Q6H PRN #15 tab PRN Reason: Pain Scale 5-7 (Moderate) Clopidogrel Bisulfate [Plavix*] 75 mg PO DAILY #30 tab lisinopriL [Prinivil*] 20 mg PO DAILY #30 tab Diet: AHA Activity: Fall precautions Followup: Efrain Neri MD [ASSOCIATE-ACTIVE - CAN ADMIT] - (within 4 weeks) Unknown,U [Primary Care Provider] - Time spent managing pt's care (in minutes): 36
[2022-09-23] MEDS: HYDROCODONE/APAP 5/325 MG TAB PO PRN (12:17)
[2022-09-23 14:13] VITALS: TEMP 97.3
== END 2022-09-23 13:15 | disposition home health service (06) | DRG 65 ==
LOC: ER 21:41 → 2ND 09-20 00:08 → OBSVTOIN 09-21 15:00
PROVIDERS: ADMIT Internal Medicine; ATTEND Internal Medicine
DX: I63.9 Cerebral infarction, unspecified (principal); G81.94 Hemiplegia, unspecified affecting left nondominant side; N30.00 Acute cystitis without hematuria; M87.88 Other osteonecrosis, other site; R47.01 Aphasia; M13.852 Other specified arthritis, left hip; I10 Essential (primary) hypertension; D72.829 Elevated white blood cell count, unspecified; B96.20 Unspecified Escherichia coli [E. coli] as the cause of diseases classified elsewhere; R29.705 NIHSS score 5; Z79.4 Long term (current) use of insulin; Z79.52 Long term (current) use of systemic steroids; Z79.02 Long term (current) use of antithrombotics/antiplatelets; Z79.82 Long term (current) use of aspirin; Z96.641 Presence of right artificial hip joint; Z79.899 Other long term (current) drug therapy; Z20.822 Contact with and (suspected) exposure to COVID-19; W18.30XA Fall on same level, unspecified, initial encounter; Y93.9 Activity, unspecified; Y92.9 Unspecified place or not applicable
CPT/HCPCS: 36415; 51702; 70450; 70496; 70544; 70549; 70553; 71045; 72170; 80048; 80061; 80307; 81001; 82947; 83036; 83735; 84100; 84436; 84443; 84484; 85025; 85610; 85730; 87040; 87077; 87086; 87088; 87186; 87804; 87811; 92610; 93005; 97110; 97112; 97161; 97530; 99285; A9577; G0378; J0696; J1170; J1650; J1815; J2270; J7030; Q9967

== ENCOUNTER 2022-09-24 14:41 | Inpatient (IN) | payer OTHER ==
--- OUTSIDE RECORDS SUMMARY | 2022-09-24 14:47 | XMS REPORT | Continuity of Care Document ---
:1960 Author Organization [facility] t Address [address] [place] [address] Care Team Providers Name Role Phone Ha ANSARI, [facility] Primary Care Physician Anne-Marie Francis MA [...] Hospita 00 l Osteoarthr Osteoarthr Disease Active 2019-0 M ethodi itis of itis of 4-29 [...] intoleran [facility] azine ty to 10-11 st adverse 00:00: Hospita reaction 00 l s to drug Family History Family Member Diagnosis Comments Start Date Stop Date Source Natural [facility] Social History Social Habit Start Date Stop Date Quantity Comments Source History of tobacco Cigarette Smoker [facility] Tobacco use and 2022-01-24 2022-01-24 Smokeless [facility] exposure 00:00:00 00:00:00 tobacco non-user Hospital Cigarettes smoked 2022-01-24 2022-01-[address] current (pack per 00:00:00 00:00:00 Hospita l day) - Reported Cigarette 2022-01-24 2022-01-24 [facility] pack-years 00:00:00 00:00:00 Hospital Alcohol intake 2022-01-24 2022-01-24 Current [facility] 00:00:00 00:00:00 non-drinker of Hospital alcohol (finding) History of Social 2022-01-24 2022-01-[address] function 00:00:00 00:00:00 Hospital Alcohol Comment 2015-10-12 2015-10-12 not found [facility] 00:00:00 00:00:00 Hospital Sex Assigned At [birth year] [facility] 00:00:00 00:00:00 Hospital Smoking Status Start Date Stop Date Source Smokes tobacco daily 2022-01-24 00:00:00 [facility] Medications Ordered Filled Start Stop Current Ordering Indication Dosage Frequency Signature Comments Components Source Medication Medication Date Date Medication? [facility] (SIG) [facility] [place] [id number] [facility] en-codeine 5-[address] (TYLENOL 00:00: 2 TABLETS [facility] WITH 00 BY MOUTH l CODEINE #4) FOUR TIMES 300-60 mg DAILY FOR per tablet [place]IC [place] [id number] chronic [facility] en-codeine 5-[address] (TYLENOL 00:00: 2 TABLETS [facility] WITH 00 BY MOUTH l CODEINE #4) FOUR TIMES 300-60 mg DAILY FOR per tablet CHRONIC PAIN naloxone 0 2023- Yes 1 spray to [facility] (Narcan) 4 5-16 05-[address] mg/actuatio 00:00: 04:59 prn Hospi ta n 00 :00 altered l spray,non-a mentation, erosol decreased nasal spray respiratio ns naloxone 2023- Yes 1 spray to [facility] (Narcan) 4 5-16 05-[address] mg/actuatio 00:00: 04:59 prn [facility] 00 :00 altered l spray,non-a mentation, erosol decreased nasal spray respiratio ns acetaminoph 2022- [place] [id number] chronic M ethodi en-codeine 4-18 05-[address] (TYLENOL 00:00: 00:00 2 TABLETS [facility] WITH 00 :00 BY MOUTH l CODEINE #4) FOUR TIMES 300-60 mg DAILY FOR per tablet CHRONIC PAIN acetaminoph 2022- No [id number] chronic M ethodi en-codeine 4-18 05-[address] (TYLENOL 00:00: 00:00 2 TABLETS [facility] WITH 00 :00 BY MOUTH l CODEINE #4) FOUR TIMES 300-60 mg DAILY FOR per tablet CHRONIC PAIN ondansetron Yes [id number] 8mg Q8H Take 1 [facility] (ZOFRAN) 8 3-21 tablet (8 st MG tablet 00:00: mg total) [facility] 00 by mouth l every 8 (eight) hours as needed for nausea or vomiting. ondansetron Yes [id number] 8mg Q8H Take 1 [facility] (ZOFRAN) 8 3-21 tablet (8 st MG tablet 00:00: mg total) [facility] 00 by mouth l every 8 (eight) hours as needed for nausea or vomiting. predniSONE 2023- Yes 20mg QD Take 1 Meth deshawn (DELTASONE) 07-23-21 tablet (20 s t 20 mg 00:00: 04:59 mg total) Hospit a tablet 00 :00 by mouth l every morning. Prednisone 20mg. Take 1-4 every morning as directed during office visit. predniSONE 2023- Yes 20mg QD Take 1 Meth deshawn (DELTASONE) 3-21 -21 tablet (20 s t 20 mg 00:00: 04:59 mg total) Hospit a tablet 00 :00 by mouth l every morning. Prednisone 20mg. Take 1-4 every morning as directed during office visit. acetaminoph 2022- No [id number] chronic M ethodi en-codeine 3-21 -[address] (TYLENOL 00:00: 00:00 2 TABLETS [facility] WITH 00 :00 BY MOUTH l CODEINE #4) FOUR TIMES 300-60 mg DAILY FOR per tablet CHRONIC PAIN acetaminoph 2022- No [id number] chronic M ethodi en-codeine 3-21 -[address] (TYLENOL 00:00: 00:00 2 TABLETS [facility] WITH 00 :00 BY MOUTH l CODEINE #4) FOUR TIMES 300-60 mg DAILY FOR per tablet CHRONIC PAIN predniSONE 2023- No [id number] 15mg QD Take 3 [facility] (DELTASONE) 2-17 -[address] 5 mg tablet 00:00: 05:59 (15 mg [facility] 00 :00 total) by l mouth daily. predniSONE 2023- No [id number] 15mg QD Take 3 [facility] (DELTASONE) 2-17 -[address] 5 mg tablet 00:00: 05:59 (15 mg [facility] 00 :00 total) by l mouth daily. ondansetron 2022- No [id number] 8mg Q8H Take 1 [facility] (ZOFRAN) 8 06-21-21 tablet (8 st MG tablet 00:00: 00:00 mg total) Ho spita 00 :00 by mouth l every 8 (eight) hours as needed for nausea or vomiting. acetaminoph 2022- [place] [id number] chronic M ethodi en-codeine 06-[address] (TYLENOL 00:00: 00:00 [...] directed during office visit. ondansetron 2022- No [id number] 8mg Q8H Take 1 [facility] (ZOFRAN) 8 06-21- tablet (8 st MG tablet 00:00: 00:00 mg total) Ho spita 00 :00 by mouth l every 8 (eight) hours as needed for nausea or vomiting. acetaminoph 2022- [place] [id number] chronic M ethodi en-codeine 06-[address] (TYLENOL 00:00: 00:00 2 TABLETS [facility] WITH 00 :00 BY MOUTH 4 l CODEINE #4) TIMES 300-60 mg DAILY FOR per tablet CHRONIC PAIN predniSONE 2022-2022- No 20mg QD Take 1 Meth deshawn (DELTASONE) 2-21 tablet (20 s t 20 mg 00:00: 00:00 mg total) Hospit a tablet 00 :00 by mouth l every morning. Prednisone 20mg. Take 1-4 every morning as directed during office visit. ondansetron No [id number] 8mg Q8H Take 1 [facility] (ZOFRAN) 8 05-22 tablet (8 st MG tablet 00:00: 00:00 mg total) Ho spita 00 :00 by mouth l every 8 (eight) hours as needed for nausea or vomiting. ondansetron 2022- No [id number] 8mg Q8H Take 1 [facility] (ZOFRAN) 8 05-22 tablet (8 st MG tablet 00:00: 00:00 mg total) Ho spita 00 :00 by mouth l every 8 (eight) hours as needed for nausea or vomiting. acetaminoph 2022- No [id number] chronic M ethodi en-codeine 05-[address] (TYLENOL 00:00: 00:00 2 TABLETS [facility] WITH 00 :00 BY MOUTH 4 l CODEINE #4) TIMES 300-60 mg DAILY FOR per tablet CHRONIC PAIN acetaminoph 2022- [place] [id number] chronic M ethodi en-codeine 05-[address] (TYLENOL 00:00: 00:00 2 TABLETS [facility] WITH 00 :00 BY MOUTH 4 l CODEINE #4) TIMES 300-60 mg DAILY FOR per tablet CHRONIC PAIN predniSONE 2021-05 No 20mg QD Take 1 Meth deshawn (DELTASONE) 06-19 tablet (20 s t 20 mg 00:00: 00:00 mg total) Hospit a tablet 00 :00 by mouth l every morning. Prednisone 20mg. Take 1-4 every morning as directed during office visit. predniSONE 2021-05- No 20mg QD Take 1 Meth deshawn (DELTASONE) 06-19- tablet (20 s t 20 mg 00:00: 00:00 mg total) Hospit a tablet 00 :00 by mouth l every morning. Prednisone 20mg. Take 1-4 every morning as directed during office visit. acetaminoph 2021-05- No chronic M ethodi en-codeine 2-15 - pain. TAKE st (TYLENOL 00:00: 00:00 2 TABLETS [facility] WITH 00 :00 BY MOUTH 4 l CODEINE #4) TIMES 300-60 mg DAILY FOR per tablet CHRONIC PAIN acetaminoph 2021-05 No chronic M ethodi en-codeine 2-15 05-[address] (TYLENOL 00:00: 00:00 2 TABLETS [facility] WITH 00 :00 BY MOUTH 4 l CODEINE #4) TIMES 300-60 mg DAILY FOR per tablet CHRONIC PAIN acetaminoph 2021-05 No chronic M ethodi en-codeine 1-15 12-[address] (TYLENOL 00:00: 00:00 2 TABLETS [facility] WITH 00 :00 BY MOUTH 4 l CODEINE #4) TIMES 300-60 mg DAILY FOR per tablet CHRONIC PAIN acetaminoph 2021-05 No chronic M ethodi en-codeine 1-15 -[address] (TYLENOL 00:00: 00:00 2 TABLETS [facility] WITH 00 :00 BY MOUTH 4 l CODEINE #4) TIMES 300-60 mg DAILY FOR per tablet CHRONIC PAIN ondansetron 2021-05- No [id number] 8mg Q8H Take 1 [facility] (ZOFRAN) 8 05-14-18 tablet (8 st MG tablet 00:00: 00:00 mg total) Ho spita 00 :00 by mouth l every 8 (eight) hours as needed for nausea or vomiting. ondansetron 2021-05- No [id number] 8mg Q8H Take 1 [facility] (ZOFRAN) 8 05-1418 tablet (8 st MG tablet 00:00: 00:00 mg total) Ho spita 00 :00 by mouth l every 8 (eight) hours as needed for nausea or vomiting. acetaminoph 2021-05 No chronic M ethodi en-codeine 1-10 -[address] (TYLENOL 00:00: 00:00 2 TABLETS [facility] WITH 00 :00 BY MOUTH 4 l CODEINE #4) TIMES 300-60 mg DAILY FOR per tablet CHRONIC PAIN acetaminoph 2021-05 No chronic M ethodi en-codeine 1-10 11-[address] (TYLENOL 00:00: 00:00 2 TABLETS [facility] WITH 00 :00 BY MOUTH 4 l CODEINE #4) TIMES 300-60 mg DAILY FOR per tablet CHRONIC PAIN methotrexat 2021-05- No [id number] 15mg Q7D Inject 0.6 [facility] PF 25 0-12 10-13 49578 mL ([address] mg/mL chemo 00:00: 04:59 total) [facility] syringe 00 :00 under the l skin once a week. 0.6cc SQ Weekly methotrexat 2021-05 No [id number] 15mg Q7D Inject 0.6 [facility] PF 25 0-12 10-13 52878 mL ([address] mg/mL chemo 00:00: 04:59 total) [facility] syringe 00 :00 under the l skin once a week. 0.6cc SQ Weekly ondansetron 2021-05- No [id number] 8mg Q8H Take 1 [facility] (ZOFRAN) 8 0-12 11-10 tablet (8 st MG tablet 00:00: 00:00 mg total) Ho spita 00 :00 by mouth l every 8 (eight) hours as needed for nausea or vomiting. acetaminoph 2021-05 No chronic M ethodi en-codeine 0-12 11-[address] (TYLENOL 00:00: 00:00 2 TABLETS [facility] WITH 00 :00 BY MOUTH 4 l CODEINE #4) TIMES 300-60 mg DAILY FOR per tablet CHRONIC PAIN ondansetron 2021-05 No [id number] 8mg Q8H Take 1 [facility] (ZOFRAN) 8 0-12 11-10 tablet (8 st MG tablet 00:00: 00:00 mg total) Ho spita 00 :00 by mouth l every 8 (eight) hours as needed for nausea or vomiting. acetaminoph 2021-05 No chronic M ethodi en-codeine 0-12 11-[address] (TYLENOL 00:00: 00:00 2 TABLETS [facility] WITH 00 :00 BY MOUTH 4 l CODEINE #4) TIMES 300-60 mg DAILY FOR per tablet CHRONIC PAIN predniSONE 2021-2021- No 20mg QD Take 1 Meth deshawn (DELTASONE) 01-25 12-15 tablet (20 s t 20 mg 00:00: 00:00 mg total) Hospit a tablet 00 :00 by mouth l every morning. Prednisone 20mg. Take 1-4 every morning as directed during office visit. predniSONE 2021-0 2- No 20mg QD Take 1 Meth deshawn (DELTASONE) 01-25 12-15 tablet (20 s t 20 mg 00:00: 00:00 mg total) Hospit a tablet 00 :00 by mouth l every morning. Prednisone 20mg. Take 1-4 every morning as directed during office visit. upadacitini 2021-0 Yes 15mg QD Take 1 Meth deshawn b (Rinvoq) 9-22 tablet (15 st 15 mg 09:53: mg total) Hospita tablet 37 by mouth l extended daily. release 24 hr ER tablet upadacitini 2021-0 Yes 15mg QD Take 1 Meth deshawn b (Rinvoq) -22 tablet (15 st 15 mg 09:53: mg total) Hospita tablet 37 by mouth l extended daily. release 24 hr ER tablet metoprolol 2021-0 Yes 100mg QD Take 100 Me [facility] succinate 9-[address] XL 09:53: mouth Hospita (TOPROL-XL) 00 daily. l 100 MG 24 hr tablet metoprolol 2-0 Yes 100mg QD Take 100 [facility] succinate 9-[address] XL 09:53: mouth Hospita (TOPROL-XL) 00 daily. l 100 MG 24 hr tablet hydrOXYchlo 2022- No 200mg QD Take 1 [facility] roQUINE 01-[address] (PLAQUENIL) 00:00: 04:59 (200 mg Ho spita 200 mg 00 :00 total) by l tablet mouth daily. sulfaSALAzi 2021-2022- No 1500mg Q.5D Take 3 M ethodi ne 01-[address] (AZULFIDINE 00:00: 04:59 (1,500 mg Hospita EN-TAB) 500 00 :00 total) by l MG DR mouth 2 tablet (two) times a day. hydrOXYchlo 2021-2022- No 200mg QD Take 1 Me [facility]odi [...] (two) times a day. ondansetron 2021- No [id number] TAKE 1 [facility] (ZOFRAN) 8 01-[address] MG tablet 00:00: 00:00 MOUTH Hospit a 00 :00 EVERY 8 l HOURS NEEDED FOR NAUSEA/VOM ITING ondansetron 2021- No [id number] TAKE 1 [facility] (ZOFRAN) 8 01-[address] MG tablet 00:00: 00:00 MOUTH Hospit a 00 :00 EVERY 8 l HOURS NEEDED FOR NAUSEA/VOM ITING acetaminoph 2021- No [id number] chronic M ethodi en-codeine 9- 10-[address] (TYLENOL 00:00: 00:00 2 TABLETS [facility] WITH 00 :00 BY MOUTH 4 l CODEINE #4) TIMES 300-60 mg DAILY FOR per tablet CHRONIC PAIN acetaminoph 2021-0 2021- No [id number] chronic M ethodi en-codeine 9-13 10-[address] (TYLENOL 00:00: 00:00 2 TABLETS [facility] WITH 00 :00 BY MOUTH 4 l CODEINE #4) TIMES 300-60 mg DAILY FOR per tablet CHRONIC PAIN ondansetron 2021- No [id number] TAKE 1 [facility] (ZOFRAN) 8 01-[address] MG tablet 00:00: 00:00 MOUTH Hospit a 00 :00 EVERY 8 l HOURS NEEDED FOR NAUSEA/VOM ITING ondansetron 2021- No [id number] TAKE 1 [facility] (ZOFRAN) 8 01-[address] MG tablet 00:00: 00:00 MOUTH Hospit a 00 :00 EVERY 8 l HOURS NEEDED FOR NAUSEA/VOM ITING acetaminoph 2021- No [id number] chronic M ethodi en-codeine 12-[address] (TYLENOL 00:00: 00:00 QID Hospita WITH 00 :00 l CODEINE #4) 300-60 mg per tablet acetaminoph 2021- No [id number] chronic M ethodi en-codeine 12-17 pain. 2 [...] mg day for 5 per Dose days. nirmatrelvi 2021- No 3{tbl} Q.5D Take 3 M ethodi r-ritonavir 12-17 tablets by s t (Paxlovid, 00:00: 04:59 mouth 2 [facility] EUA,) 300 00 :00 (two) l mg (150 mg times a x 2)-100 mg day for 5 per Dose days. ondansetron No [id number] TAKE 1 [facility] (ZOFRAN) 8 12-[address] MG tablet 00:00: 00:00 MOUTH Hospit a 00 :00 EVERY 8 l HOURS NEEDED FOR NAUSEA/VOM ITING ondansetron No [id number] TAKE 1 [facility] (ZOFRAN) 8 12-[address] MG tablet 00:00: 00:00 MOUTH Hospit a 00 :00 EVERY 8 l HOURS NEEDED FOR NAUSEA/VOM ITING predniSONE 2022- No [id number] 15mg QD Take 3 [facility] (DELTASONE) 11-13-[address] 5 mg tablet 00:00: 00:00 (15 mg [facility] 00 :00 total) by l mouth daily. predniSONE 2022- No [id number] 15mg QD Take 3 [facility] (DELTASONE) 11-13 02-[address] 5 mg tablet 00:00: 00:00 (15 mg [facility] 00 :00 total) by l mouth daily. acetaminoph 2021- No [id number] CHRONIC M ethodi en-codeine 7-[address] (TYLENOL 00:00: 00:00 2 TABLETS [facility] WITH 00 :00 BY MOUTH 4 l CODEINE #4) TIMES 300-60 mg DAILY per tablet NEEDED FOR MODERATE PAIN OR SEVERE PAIN UP TO 30 DAYS acetaminoph 2021- No [id number] CHRONIC M ethodi en-codeine 11-[address] (TYLENOL 00:00: 00:00 2 TABLETS [facility] WITH 00 :00 BY MOUTH 4 l CODEINE #4) TIMES 300-60 mg DAILY per tablet NEEDED FOR MODERATE PAIN OR SEVERE PAIN UP TO 30 DAYS ondansetron 2021- No [id number] 8mg Q8H TAKE 1 [facility] (ZOFRAN) 8 11-13-12 TABLET (8 st MG tablet 00:00: 00:00 MG TOTAL) Ho spita 00 :00 BY MOUTH l EVERY 8 (EIGHT) HOURS NEEDED FOR NAUSEA OR VOMITING. ondansetron 2021- No [id number] 8mg Q8H TAKE 1 [facility] (ZOFRAN) 8 11-13 08-12 TABLET (8 st MG tablet 00:00: 00:00 MG TOTAL) Ho spita 00 :00 BY MOUTH l EVERY 8 (EIGHT) HOURS NEEDED FOR NAUSEA [place] [id number] chronic M ethodi en-codeine 6-18 -[address] (TYLENOL 00:00: 00:00 2 TABLETS [facility] WITH 00 :00 BY MOUTH 4 l CODEINE #4) TIMES 300-60 mg DAILY per tablet NEEDED FOR MODERATE PAIN OR SEVERE PAIN UP TO 30 DAYS acetaminoph 2021- No [id number] chronic M ethodi en-codeine 6-18 07-[address] (TYLENOL 00:00: 00:00 2 TABLETS [facility] WITH 00 :00 BY MOUTH 4 l CODEINE #4) TIMES 300-60 mg DAILY per tablet NEEDED FOR MODERATE PAIN OR SEVERE PAIN UP TO 30 DAYS folic acid Yes [id number] 1mg QD Take 1 [facility] (FOLVITE) 1 -17 [id number] tablet (1 st MG tablet 00:00: mg total) [facility] 00 by mouth l daily. folic acid Yes [id number] 1mg QD Take 1 [facility] (FOLVITE) 1 -17 [id number] tablet (1 st MG tablet 00:00: mg total) [facility] 00 by mouth l daily. methotrexat 2021- No [id number] 15mg Q7D Inject 0.6 [facility] PF 25 -18 02- 57506 mL ([address] mg/mL chemo 00:00: 00:00 total) [facility] syringe 00 :00 under the l skin once a week. 0.6cc SQ Weekly methotrexat 2021- No [id number] 15mg Q7D Inject 0.6 [facility] PF 25 10-19- 31932 mL ([address] mg/mL chemo 00:00: 00:00 total) [facility] syringe 00 :00 under the l skin once a week. 0.6cc SQ Weekly ondansetron 2021- No [id number] 8mg Q8H Take 1 [facility] (ZOFRAN) 8 10-19-12 tablet (8 st MG tablet 00:00: 00:00 mg total) Ho spita 00 :00 by mouth l every 8 (eight) hours as needed for nausea or vomiting. ondansetron 2021- No [id number] 8mg Q8H Take 1 [facility] (ZOFRAN) 8 - 07-12 tablet (8 st MG tablet 00:00: 00:00 mg total) Ho spita 00 :00 by mouth l every 8 (eight) hours as needed for nausea or vomiting. acetaminoph 2021- No [id number] chronic M ethodi en-codeine 09-[address] (TYLENOL 00:00: 00:00 2 TABLETS [facility] WITH 00 :00 BY MOUTH 4 l CODEINE #4) TIMES 300-60 mg DAILY per tablet NEEDED FOR MODERATE PAIN OR SEVERE PAIN UP TO 30 DAYS ondansetron 2021- No [id number] 8mg Q8H Take 1 [facility] (ZOFRAN) 8 09-21 tablet (8 st MG tablet 00:00: 00:00 mg total) Ho spita 00 :00 by mouth l every 8 (eight) hours as needed for nausea or vomiting. acetaminoph 2021- [place] [id number] chronic M ethodi en-codeine 09-[address] (TYLENOL 00:00: 00:00 2 TABLETS [facility] WITH 00 :00 BY MOUTH 4 l CODEINE #4) TIMES 300-60 mg DAILY per tablet NEEDED FOR MODERATE PAIN OR SEVERE PAIN UP TO 30 DAYS ondansetron 2021- No [id number] 8mg Q8H Take 1 [facility] (ZOFRAN) 8 09-21 tablet (8 st MG tablet 00:00: 00:00 mg total) Ho spita 00 :00 by mouth l every 8 (eight) hours as needed for nausea or vomiting. predniSONE 2021- No 15mg QD Take 3 [facility] (DELTASONE) 08-23-[address] 5 mg tablet 00:00: 00:00 (15 mg [facility] 00 :00 total) by l mouth daily. predniSONE 2021- No 15mg QD Take 3 [facility] des[facility]wn (DELTASONE) 08-23-[address] 5 mg tablet 00:00: 00:00 (15 mg [facility] 00 :00 total) by l mouth daily. folic acid 2021- No 1mg QD Take 1 [facility]wn (FOLVITE) 1 08-23 tablet (1 st MG tablet 00:00: 00:00 mg total) Ho spita 00 :00 by mouth l daily. methotrexat 2021- No [id number] 15mg Q7D Inject 0.6 [facility] PF 25 08-23 11640 mL ([address] mg/mL chemo 00:00: 00:00 total) [facility] syringe 00 :00 under the l skin once a week. 0.6cc SQ Weekly folic acid 2021- No 1mg QD Take 1 [facility] des[facility]wn (FOLVITE) 1 08-23 tablet (1 st MG tablet 00:00: 00:00 mg total) Ho spita 00 :00 by mouth l daily. methotrexat 2021- No [id number] 15mg Q7D Inject 0.6 [facility] PF 25 08-23 [id number] mL ([address] mg/mL chemo 00:00: 00:00 total) [facility] syringe 00 :00 under the l skin once a week. 0.6cc SQ Weekly ondansetron 2021- No 8mg Q8H Take 1 [facility] (ZOFRAN) 8 08-23- tablet (8 st MG tablet 00:00: 00:00 mg total) Ho spita 00 :00 by mouth l every 8 (eight) hours as needed for nausea or vomiting. acetaminoph 2021- No [id number] chronic M ethodi en-codeine 08-[address] (TYLENOL 00:00: 00:00 2 TABLETS [facility] WITH 00 :00 BY MOUTH 4 l CODEINE #4) TIMES 300-60 mg DAILY per tablet NEEDED FOR MODERATE PAIN OR SEVERE PAIN UP TO 30 DAYS syringe 0 Yes [id number] .6mL Q1W 0.6 mL M ethodi with needle 3-[address] 1 mL 27 x 00:00: days. Hospita 05/06" 00 l syringe syringe 2021-0 Yes [id number] .6mL Q1W 0.6 mL M ethodi with needle 3-[id number] 1 mL 27 x 00:00: days. Hospita 2" 00 l syringe hydrOXYchlo 2020-05 No 200mg QD Take 1 [facility] roQUINE 1-10 12-[address] (PLAQUENIL) 00:00: 00:00 (200 mg Ho spita 200 mg 00 :00 total) by l tablet mouth daily. hydrOXYchlo 2020-05 No 200mg QD Take 1 [facility] roQUINE 1-10 12-[address] (PLAQUENIL) 00:00: 00:00 (200 mg Ho spita 200 mg 00 :00 total) by l tablet mouth daily. upadacitini 15mg QD Take 1 [facility] b (Rinvoq) 11-14 tablet (15 st 15 mg 00:00: 00:00 mg total) Hospit a tablet 00 :00 by mouth l extended daily. release 24 hr ER tablet upadacitini 15mg QD Take 1 [facility] b (Rinvoq) 11-14 tablet (15 st 15 mg 00:00: 00:00 mg total) Hospit a tablet 00 :00 by mouth l extended daily. release 24 hr ER tablet Immunizations Ordered Immunization Filled Immunization Date Status Commen ts Source Name Name JAHAIRA REESENEJan 2020-12-28 [facility]:00 [facility] PPD Test 2014-06-16 Completed [facility] 00:00:00 [facility] PPD Test 2014-06-16 Completed [facility] 00:00:00 [facility] Vital Signs Vital Name Observation Time Observation Value Comments Source Systolic blood 2022-01-24 14:51:00 182 mm[Hg] [facility] pressure Diastolic blood 2022-01-24 14:51:00 91 mm[Hg] [facility] pressure Heart rate 2022-01-24 14:51:00 64 /min [facility] Body height 2022-01-24 14:51:00 162.6 cm [facility] Body weight 2022-01-24 14:51:00 68.04 kg [facility] BMI 2022-01-24 14:51:00 25.75 kg/m2 [facility] Oxygen saturation in 2022-01-24 14:51:00 100 /min [facility] Arterial blood by Pulse oximetry Body temperature 2021-10-02 19:38:[address] [facility] Procedures Procedure Date / Time Performing Clinician Source Performed QUANTIFERON-TB GOLD PLUS, 2022-01-24 15:39:00 Rolando Matthews [facility] 4 TUBE QUANTIFERON-TB GOLD PLUS 2022-01-24 15:39:00 Rolando Matthews [facility] CBC WITH PLATELET AND 2022-01-24 15:35:00 Rolando Matthews [facility] DIFFERENTIAL COMPREHENSIVE METABOLIC 2022-01-24 15:35:00 [facility] PANEL SEDIMENTATION RATE 2022-01-24 15:35:00 [facility] C-REACTIVE PROTEIN 2022-01-24 15:35:00 [facility] GGT 2022-01-24 15:35:00 [facility] spital ANTI MITOCHONDRIA SCREEN 2022-01-24 15:35:[address] [facility] ZZANTI-SMOOTH MUSCLE 2022-01-24 15:35:00 [facility] ANTIBODY SPECIMEN STATUS REPORT 2022-01-24 15:35:00 [facility] URINE CULTURE 2021-10-02 20:33:00 [facility] spital URINALYSIS, AUTOMATED 2021-10-02 20:33:[address] [facility] WITH MICROSCOPY MICROSCOPIC EXAMINATION 2021-10-02 20:33:00 [facility] CBC WITH PLATELET AND 2021-10-02 20:32:[address] [facility] DIFFERENTIAL COMPREHENSIVE METABOLIC 2021-10-02 20:32:00 [facility] PANEL SEDIMENTATION RATE 2021-10-02 20:32:00 [facility] C-REACTIVE PROTEIN 2021-10-02 20:32:00 [facility] VECTRA 2021-10-02 20:32:00 [facility] spital Plan of Care Planned Activity Planned Date Details Comments Source Future Scheduled 2022-09-24 Pneumococcal Vaccine: [facility] Test 12:43:59 Pediatrics (0 to 5 Years) and At-Risk Patients (6 to 64 Years) (1 - PCV) [code = Pneumococcal Vaccine: Pediatrics (0 to 5 Years) and At-Risk Patients (6 to 64 Years) (1 - PCV)] Future Scheduled 2022-09-24 SHINGLES VACCINES (1 [facility] Test 12:43:59 of 2) [code = SHINGLES VACCINES (1 of 2)] Future Scheduled 2022-09-24 Screening for [facility] Test 12:43:59 malignant neoplasm of cervix (procedure) [code = 612068600] Future Scheduled 2022-09-24 BREAST CANCER [facility] Test 12:43:59 SCREENING [code = BREAST CANCER SCREENING] Future Scheduled 2022-09-24 COLONOSCOPY SCREENING [facility] Test 12:43:59 [code = COLONOSCOPY SCREENING] Future Scheduled 2022-09-24 Screening for [facility] Test 12:43:59 malignant neoplasm of lung (procedure) [code = 713238678] Future Scheduled 2022-09-24 COVID-19 VACCINE (2 - [facility] Test 12:43:59 Moderna risk series) [code = COVID-19 VACCINE (2 - Moderna risk series)] Future Scheduled 2022-09-24 INFLUENZA VACCINE [facility] Test 12:43:59 [code = INFLUENZA VACCINE] Future Scheduled 2022-09-17 Pneumococcal Vaccine: [facility] Test 12:19:15 Pediatrics (0 to 5 Years) and At-Risk Patients (6 to 64 Years) (1 - PCV) [code = Pneumococcal Vaccine: Pediatrics (0 to 5 Years) and At-Risk Patients (6 to 64 Years) (1 - PCV)] Future Scheduled 2022-09-17 SHINGLES VACCINES (1 Met [facility] Test 12:19:15 of 2) [code = SHINGLES VACCINES (1 of 2)] Future Scheduled 2022-09-17 Screening for [facility] Test 12:19:15 malignant neoplasm of cervix (procedure) [code = 094192434] Future Scheduled 2022-09-17 BREAST CANCER [facility] Test 12:19:15 SCREENING [code = BREAST CANCER SCREENING] Future Scheduled 2022-09-17 COLONOSCOPY SCREENING [facility] Test 12:19:15 [code = COLONOSCOPY SCREENING] Future Scheduled 2022-09-17 Screening for [facility] Test 12:19:15 malignant neoplasm of lung (procedure) [code = 875031484] Future Scheduled 2022-09-17 COVID-19 VACCINE (2 - [facility] Test 12:19:15 Moderna risk series) [code = COVID-19 VACCINE (2 - Moderna risk series)] Future Scheduled 2022-09-17 INFLUENZA VACCINE [facility] Test 12:19:15 [code = INFLUENZA VACCINE] Encounters Start End Encounter Admission Attending Care Care Encounter Source Date/Time Date/Time Type Type Clinicians Facility Department ID 2022-09-23 2022-09-23 Telephone Tito, 1.2.840.1 [id number] Methodi 00:00:00 00:00:00 [place]Marie [address] 3.430.2.7 Hospit a .3.221609 l .8 2022-09-17 2022-09-17 Telephone Tito, 1.2.840.1 [id number] Methodi 00:00:00 00:00:00 [place]-Marie [address]651.[address] 3.430.2.7 Hospit a .3.056971 l .8 2022-09-17 2022-09-17 Telephone Tito, 1.2.840.1 [id number] Methodi 00:00:00 00:00:00 Anne-Marie [address].1.[address] 3.430.2.7 Hospit a .3.005094 l .8 2022-09-17 2022-09-17 Orders Byron, 1.2.840.1 [id number] Methodi 00:00:00 00:00:00 Only Rolando 90292.1.[address] 3.430.2.7 Hospit a .3.014416 l .8 2022-09-17 2022-09-17 Telephone Tito, 1.2.840.1 [id number] Methodi 00:00:00 00:00:00 Anne-Marie [address]64.[address] 3.430.2.7 Hospit a .3.299198 l .8 2022-09-17 2022-09-17 Orders Byron, 1.2.840.1 [id number] 0757 Methodi 00:00:00 00:00:00 Only Rolando 66210.1.[address] 3.430.2.7 Hospit a .3.784994 l .8 2022-09-17 2022-09-17 Telephone Tito, 1.2.840.1 [id number] Methodi 00:00:00 00:00:00 Anne-Marie [address]67.1.[address] 3.430.2.7 Hospit a .3.134796 l .8 2022-08-20 2022-08-20 Refill Byron, 1.2.840.1 [id number] 745347 0190 Methodi 00:00:00 00:00:[address] 3.430.2.7 Hospit a .3.125160 l .8 2022-08-20 2022-08-20 Telephone Tito, 1.2.840.1 [id number] Methodi 00:00:00 00:00:00 Anne-Marie [address].1.[address] 3.430.2.7 Hospit a .3.074302 l .8 2022-08-20 2022-08-20 Refill Byron, 1.2.840.1 [id number] 149421 4896 Methodi 00:00:00 00:00:[address] 3.430.2.7 Hospit a .3.274898 l .8 2022-08-20 2022-08-20 Telephone Tito, 1.2.840.1 [id number] Methodi 00:00:00 00:00:00 Anne-Marie [address]001.1.[address] 3.430.2.7 Hospit a .3.157283 l .8 2022-07-23 2022-07-23 Orders Byron, 1.2.840.1 [id number] [id number] 4168 Methodi 00:00:00 00:00:00 Only Rolando 10422.1.[address] 3.430.2.7 Hospit a .3.674144 l .8 2022-07-23 2022-07-23 Refill Byron, 1.2.840.1 [id number] 8908 Methodi 00:00:00 00:00:[address] 3.430.2.7 Hospit a .3.213116 l .8 2022-07-23 2022-07-23 Orders Byron, 1.2.840.1 [id number] 6359 Methodi 00:00:00 00:00:00 Only Rolando [address]7097.1.[address] 3.430.2.7 Hospit a .3.072845 l .8 2022-07-23 2022-07-23 Refill Byron, 1.2.840.1 [id number] 339231 4970 Methodi 00:00:00 00:00:[address] 3.430.2.7 Hospit a .3.574486 l .8 2022-06-21 2022-06-21 Telephone Tito, 1.2.840.1 [id number] Methodi 00:00:00 00:00:00 Anne-Marie 41464.1.[address] 3.430.2.7 Hospit a .3.027326 l .8 2022-06-21 2022-06-21 Telephone Tito, 1.2.840.1 [id number] Methodi 00:00:00 00:00:00 Anne-Marie [address] 3.430.2.7 Hospit a .3.669406 l .8 2022-05-22 2022-05-22 Orders Byron, 1.2.840.1 [id number] 090301 8245 Methodi 00:00:00 00:00:00 Only Rolando 56857.1.[address] 3.430.2.7 Hospit a .3.846262 l .8 2022-05-22 2022-05-22 Telephone Tito, 1.2.840.1 [id number] Methodi 00:00:00 00:00:00 Anne-Marie [address].1.[address] 3.430.2.7 Hospit a .3.430247 l .8 2022-05-22 2022-05-22 Orders Byron, 1.2.840.1 [id number] 8070 Methodi 00:00:00 00:00:00 Only Rolando 59571.1.[address] 3.430.2.7 Hospit a .3.539470 l .8 2022-05-22 2022-05-22 Telephone Tito, 1.2.840.1 [id number] Methodi 00:00:00 00:00:00 Anne-Marie 80511.1.[address] 3.430.2.7 Hospit a .3.422989 l .8 2022-05-21 2022-05-21 Refill Byron, 1.2.840.1 717461397 872997 6145 Methodi 00:00:00 00:00:[address] 3.430.2.7 Hospit a .3.502448 l .8 2022-05-21 2022-05-21 Refill Byron, 1.2.840.1 [id number] 086675 6351 Methodi 00:00:00 00:00:[address] 3.430.2.7 Hospit a .3.699890 l .8 2022-04-18 2022-04-18 Telemedici Byron, 1.2.840.1 [id number] 757 [id number] Methodi 14:20:00 14:42:13 [address] Rolando 10647.1.[address] 3.430.2.7 Hospit a .3.290913 l .8 2022-04-18 2022-04-18 Telemedici Byron, 1.2.840.1 [id number] 809 [id number] Methodi 14:20:00 14:42:13 ne [address]ando 84127.1.[address] 3.430.2.7 Hospit a .3.857933 l .8 2022-03-19 2022-03-19 Telephone Tito, 1.2.840.1 [id number] Methodi 00:00:00 00:00:00 Anne-Marie 41711.1.[address] 3.430.2.7 Hospit a .3.299876 l .8 2022-03-19 2022-03-19 Telephone Tito, 1.2.840.1 [id number] Methodi 00:00:00 00:00:00 Anne-Marie [address].1.[address] 3.430.2.7 Hospit a .3.102503 l .8 2022-03-18 2022-03-18 Telephone Byron, 1.2.840.1 [id number] 2099 576160 Methodi 00:00:00 00:00:[address] 3.430.2.7 Hospit a .3.147015 l .8 2022-03-18 2022-03-18 Telephone Byron, 1.2.840.1 [id number] 2099 835746 Methodi 00:00:00 00:00:[address] 3.430.2.7 Hospit a .3.370861 l .8 2022-03-14 2022-03-14 Refill Gregory, 1.2.840.1 [id number] 50098 Methodi 00:00:00 00:00:[address] 3.430.2.7 Hospit a .3.761490 l .8 2022-03-14 2022-03-14 Refill Gregory, 1.2.840.1 31 Methodi 00:00:00 00:00:[address] 3.430.2.7 Hospit a .3.972819 l .8 2022-02-13 2022-02-13 Telephone Tito, 1.2.840.1 [id number] Methodi 00:00:00 00:00:00 Anne-Marie [address]108.1.[address] 3.430.2.7 Hospit a .3.905447 l .8 2022-02-13 2022-02-13 Refill Tito, 1.2.840.1 [id number] Methodi 00:00:00 00:00:00 Anne-Marie 61113.1.[address] 3.430.2.7 Hospit a .3.400564 l .8 2022-02-13 2022-02-13 Telephone Tito, 1.2.840.1 532222721 [id number] Methodi 00:00:00 00:00:00 Anne-Marie [address]306.1.[address] 3.430.2.7 Hospit a .3.392874 l .8 2022-02-13 2022-02-13 Telephone Tito, 1.2.840.1 848853011 [id number] Methodi 00:00:00 00:00:00 Anne-Marie [address]26.[address] 3.430.2.7 Hospit a .3.764009 l .8 2022-02-13 2022-02-13 Refill Tito, 1.2.840.1 [id number] Methodi 00:00:00 00:00:00 Anne-Marie [address] 3.430.2.7 Hospit a .3.849929 l .8 2022-02-13 2022-02-13 Telephone Tito, 1.2.840.1 [id number] Methodi 00:00:00 00:00:00 Anne-Marie [address]016.1.[address] 3.430.2.7 Hospit a .3.543118 l .8 2022-02-12 2022-02-12 Transcribe Byron, 1.2.840.1 144395519 797 [id number] Methodi 00:00:00 00:00:00 Orders Rolando [address]2610.1.[address] 3.430.2.7 Hospit a .3.984595 l .8 2022-02-12 2022-02-12 Telephone Tito, 1.2.840.1 [id number] Methodi 00:00:00 00:00:00 Anne-Marie [address].1.[address] 3.430.2.7 Hospit a .3.295521 l .8 2022-02-12 2022-02-12 Transcribe Byron, 1.2.840.1 534683939 591 [id number] Methodi 00:00:00 00:00:00 Orders Rolando [address]172.1.[address] 3.430.2.7 Hospit a .3.671312 l .8 2022-02-12 2022-02-12 Telephone Tito, 1.2.840.1 294015431 [id number] Methodi 00:00:00 00:00:00 Anne-Marie [address] 3.430.2.7 Hospit a .3.933392 l .8 2022-01-31 2022-01-31 Documentat Tito, 1.2.840.1 [id number] Methodi 00:00:00 00:00:00 ion Anne-Marie 01751.1.[address] 3.430.2.7 Hospit a .3.683956 l .8 2022-01-31 2022-01-31 Orders Byron, 1.2.840.1 [id number] 657691 8217 Methodi 00:00:00 00:00:00 Only Rolando 67355.1.[address] 3.430.2.7 Hospit a .3.111910 l .8 2022-01-31 2022-01-31 Documentat Tito, 1.2.840.1 140568845 [id number] Methodi 00:00:00 00:00:00 ion Anne-Marie 08355.1.[address] 3.430.2.7 Hospit a .3.485741 l .8 2022-01-31 2022-01-31 Orders Byron, 1.2.840.1 856972279 781456 7447 Methodi 00:00:00 00:00:00 Only Rolando 35895.1.[address] 3.430.2.7 Hospit a .3.074441 l .8 2022-01-30 2022-01-30 Telephone Tito, 1.2.840.1 [id number] [id number] Methodi 00:00:00 00:00:00 Anne-Marie [address].1.[address] 3.430.2.7 Hospit a .3.246170 l .8 2022-01-30 2022-01-30 Telephone Tito, 1.2.840.1 [id number] Methodi 00:00:00 00:00:00 Anne-Marie 17219.1.[address] 3.430.2.7 Hospit a .3.766521 l .8 2022-01-25 2022-01-25 Orders Byron, 1.2.840.1 845159026 656589 0774 Methodi 00:00:00 00:00:00 Only Rolando 15665.1.[address] 3.430.2.7 Hospit a .3.544297 l .8 2022-01-25 2022-01-25 Orders Byron, 1.2.840.1 258968142 436152 6503 Methodi 00:00:00 00:00:00 Only Rolando 10255.1.[address] 3.430.2.7 Hospit a .3.673893 l .8 2022-01-25 2022-01-25 Orders Byron, 1.2.840.1 727021672 579964 4415 Methodi 00:00:00 00:00:00 Only Rolando 41327.1.[address] 3.430.2.7 Hospit a .3.168998 l .8 2022-01-25 2022-01-25 Orders Byron, 1.2.840.1 214785001 937147 2668 Methodi 00:00:00 00:00:00 Only Rolando 25292.1.[address] 3.430.2.7 Hospit a .3.726054 l .8 2022-01-24 2022-01-24 Office Byron, 1.2.840.1 331964951 915465 4554 Methodi 09:40:00 10:29:33 Visit Rolando 76822.1.[address] 3.430.2.7 Hospit a .3.177705 l .8 2022-01-24 2022-01-24 Office Byron, 1.2.840.1 939644566 013663 2648 Methodi 09:40:00 10:29:33 Visit Rolando 97637.1.[address] 3.430.2.7 Hospit a .3.910709 l .8 2022-01-24 2022-01-24 Orders Byron, 1.2.840.1 460756330 682683 9390 Methodi 00:00:00 00:00:00 Only Rolando 45259.1.[address] 3.430.2.7 Hospit a .3.263874 l .8 2022-01-24 2022-01-24 Travel 1.2.840.1 1.2.585.453 3993 259404 Methodi 00:00:00 00:00:[address] 3.430.2.7 0.2.7.3.698 Ho spita .3.773618 084.8 l .8 2022-01-24 2022-01-24 Orders Byron, 1.2.840.1 346204384 [id number] 2652 Methodi 00:00:00 00:00:00 Only Rolando 87656.1.[address] 3.430.2.7 Hospit a .3.429410 l .8 2022-01-24 2022-01-24 Travel 1.2.840.1 1.2.177.918 5076 415866 Methodi 00:00:00 00:00:[address] 3.430.2.7 0.2.7.3.698 Ho spita .3.672782 084.8 l .8 2022-01-16 2022-01-16 Refill Byron, 1.2.840.1 302310499 696374 7248 Methodi 00:00:00 00:00:[address] 3.430.2.7 Hospit a .3.165528 l .8 2022-01-16 2022-01-16 Refill Byron, 1.2.840.1 [id number] 034206 0704 Methodi 00:00:00 00:00:[address] 3.430.2.7 Hospit a .3.295986 l .8 2022-01-15 2022-01-15 Refill Byron, 1.2.840.1 681451466 247129 9571 Methodi 00:00:00 00:00:[address] 3.430.2.7 Hospit a .3.419716 l .8 2022-01-15 2022-01-15 Refill Byron, 1.2.840.1 962725226 218793 4363 Methodi 00:00:00 00:00:[address] 3.430.2.7 Hospit a .3.139151 l .8 2021-12-17 2021-12-17 Orders Byron, 1.2.840.1 [id number] 364928 8222 Methodi 00:00:00 00:00:00 Only Rolando 53669.1.[address] 3.430.2.7 Hospit a .3.821437 l .8 2021-12-17 2021-12-17 Telephone Gregory, 1.2.840.1 [id number] 617 [id number] Methodi 00:00:00 00:00:[address] 3.430.2.7 Hospit a .3.243373 l .8 2021-12-17 2021-12-17 Orders Byron, 1.2.840.1 577773863 644539 7978 Methodi 00:00:00 00:00:00 Only Rolando 49828.1.[address] 3.430.2.7 Hospit a .3.240881 l .8 2021-12-17 2021-12-17 Telephone Gregory, 1.2.840.1 111809720 669 [id number] Methodi 00:00:00 00:00:[address] 3.430.2.7 Hospit a .3.978850 l .8 2021-12-14 2021-12-14 Refill Byron, 1.2.840.1 972755091 440555 9632 Methodi 00:00:00 00:00:[address] 3.430.2.7 Hospit a .3.601921 l .8 2021-12-14 2021-12-14 Refill Byron, 1.2.840.1 647670927 134011 6941 Methodi 00:00:00 00:00:[address] 3.430.2.7 Hospit a .3.162316 l .8 2021-11-13 2021-11-13 Refill Gregory, 1.2.840.1 294352083 63794 Methodi 00:00:00 00:00:[address] 3.430.2.7 Hospit a .3.415814 l .8 2021-11-13 2021-11-13 Refill Byron, 1.2.840.1 962114927 195551 9315 Methodi 00:00:00 00:00:[address] 3.430.2.7 Hospit a .3.973153 l .8 2021-11-13 2021-11-13 Refill Gregory, 1.2.840.1 125215114 19782 Methodi 00:00:00 00:00:[address] 3.430.2.7 Hospit a .3.346505 l .8 2021-11-13 2021-11-13 Refill Byron, 1.2.840.1 [id number] 450962 1950 Methodi 00:00:00 00:00:[address] 3.430.2.7 Hospit a .3.274452 l .8 2021-10-19 2021-10-19 Telephone Gregory, 1.2.840.1 [id number] 821 [id number] Methodi 00:00:00 00:00:[address] 3.430.2.7 Hospit a .3.499659 l .8 2021-10-19 2021-10-19 Refill Gregory, 1.2.840.1 615747553 86536 Methodi 00:00:00 00:00:[address] 3.430.2.7 Hospit a .3.142864 l .8 2021-10-19 2021-10-19 Telephone Gregory, 1.2.840.1 690445509 139 2184844 Methodi 00:00:00 00:00:[address] 3.430.2.7 Hospit a .3.840574 l .8 2021-10-19 2021-10-19 Refill Gregory, 1.2.840.1 072268386 57746 46249 Methodi 00:00:00 00:00:[address] 3.430.2.7 Hospit a .3.484827 l .8 2021-10-03 2021-10-03 Telephone Gregory, 1.2.840.1 113886774 458 8782371 Methodi 00:00:00 00:00:[address] 3.430.2.7 Hospit a .3.170857 l .8 2021-10-03 2021-10-03 Telephone Gregory, 1.2.840.1 [id number] 873 [id number] Methodi 00:00:00 00:00:[address] 3.430.2.7 Hospit a .3.001694 l .8 2021-10-02 2021-10-02 Office Byron, 1.2.840.1 391483827 773298 9208 Methodi 14:40:00 15:34:59 Visit Rolando 50918.1.[address] 3.430.2.7 Hospit a .3.121775 l .8 2021-10-02 2021-10-02 Office Byron, 1.2.840.1 [id number] 194015 5728 Methodi 14:40:00 15:34:59 Visit Rolando 18036.1.[address] 3.430.2.7 Hospit a .3.896676 l .8 2021-10-02 2021-10-02 Travel 1.2.840.1 1.2.603.763 5040 977286 Methodi 00:00:00 00:00:[address] 3.430.2.7 0.2.7.3.698 Ho spita .3.722330 084.8 l .8 2021-10-02 2021-10-02 Telephone Gregory, 1.2.840.1 [id number] 968 7147914 Methodi 00:00:00 00:00:[address] 3.430.2.7 Hospit a .3.585862 l .8 2021-10-02 2021-10-02 Travel 1.2.840.1 1.2.062.619 8893 019213 Methodi 00:00:00 00:00:[address] 3.430.2.7 0.2.7.3.698 Ho spita .3.588825 084.8 l .8 2021-10-02 2021-10-02 Telephone Gregory, 1.2.840.1 [id number] 445 [id number] Methodi 00:00:00 00:00:[address] 3.430.2.7 Hospit a .3.049891 l .8 2021-09-20 2021-09-20 Refill Gregory, 1.2.840.1 [id number] 87591 Methodi 00:00:00 00:00:[address] 3.430.2.7 Hospit a .3.944332 l .8 2021-06-20 2021-06-20 Outpatient [facility] [id number] [address] [place] 00:00:00 00:00:00 ROLANDO [address] 2021-04-03 2021-04-03 Outpatient [facility] [id number] 890 [place] 00:00:00 00:00:00 ROLANDO [address] 2021-02-22 2021-02-22 Outpatient [facility] [id number] 010 [place] 00:00:00 00:00:[address] 2020-12-19 2020-12-19 Outpatient RONA, [facility] [id number] 7003 [place] 00:00:00 00:00:00 DENTON [address] 2020-12-19 2020-12-19 Outpatient RONA, [facility] [id number] 2059 [place] 00:00:00 00:00:00 DENTON [address] 2020-11-14 2020-11-14 Outpatient BYRON, [facility] [id number] 525 [place] 00:00:00 00:00:00 ROLANDO [address] 2020-09-05 2020-09-05 Outpatient BYRON, [facility] [id number] 795 [place] 00:00:00 00:00:00 ROLANDO [address] 2020-05-29 2020-05-29 Outpatient BYRON, [facility] [id number] 558 [place] 00:00:00 00:00:00 ROLANDO [address] 2019-09-01 2019-09-01 Outpatient BYRON, [facility] [id number] 738 [place] 00:00:00 00:00:00 ROLANDO [address] Results Test Description Test Time Test Comments Results Result Comments Source Specimen Status Report 2022-02-16 16:10:00 Test Item Value Reference Range Interpretation Comme nts Specimen Status Report COMMENT Writt en AuthorizationWritten (test code = 3285) Authoriza Vincent Written Authorization R eceived. SHERLY (test code = SHERLY) Performed at: - [address] [id number] Director: Magdy Mcgee MD, Phone: [phone] [facility] [id number] 16:10:00 Test Item Value Reference Range Interpretation Comments Specimen COMMENT Written Status Report AuthorizationW ritten (test code = AuthorizationNo Written 3285) Authorization R eceived. SHERLY (test code Performed at: 01 = SHERLY) - [address] [id number] Director: Magdy Mcgee MD, Phone: [phone] [facility] Gold Plus, 4 [id number] 10:10:00 Test Item Value Reference Interpretation Comments Range QuantiFERON Incubation Incubation (test performed. code = 5936) Quantiferon TB gold Indeterminate Negative A Mitogen (positive plus (test code = control) g ave low 08370-4) response. This may occur due tosuboptimal pre-analytical handling.Chemil um inescence immunoassay methodology SHERLY (test code = Performed at: ) [facility] [id number] Director: Magdy Mcgee MD, Phone: [phone] at: - [facility] Xksvtck6935 [address] [id number] Director: Colt Nicholas MD, Phone: [phone] Lab Interpretation Abnormal (test code = 25935-0) [facility] [id number] 10:10:00 Test Item Value Reference Range Interpretation [...] Ag 0.00 IU/mL Value (test code = 45954-4) QuantiFERON TB2 Ag 0.00 IU/mL Value (test code = 5942) Quantiferon NIL 0.00 IU/mL value (test code = 24286-6) Quantiferon 0.09 IU/mL mitogen value (test code = 50361-1) SHERLY (test code = Performed at: SHERLY) - [facility] Tuoheih[address] [id number] Director: Colt Nicholas MD, Phone: [phone] [facility] Plus, 4 [id number] 10:10:00 Test Item Value Reference Interpretation Comments Range QuantiFERON Incubation Incubation (test performed. code = 5936) Quantiferon TB gold Indeterminate Negative A Mitogen (positive plus (test code = control) g ave low 07591-6) response. This may occur due tosuboptimal pre-analytical handling.Chemil um inescence immunoassay methodology SHERLY (test code = Performed at: [facility]) [facility] [id number] Director: Magdy Mcgee MD, Phone: [phone] at: - [facility] [id number] Director: Colt Nicholas MD, Phone: [phone] Lab Interpretation Abnormal (test code = 57159-6) [facility]-TB Gold [id number] 10:10:00 Test Item Value Reference Range Interpretation [...] Ag 0.00 IU/mL Value (test code = 61198-3) QuantiFERON TB2 Ag 0.00 IU/mL Value (test code = 5942) Quantiferon NIL 0.00 IU/mL value (test code = 11202-1) Quantiferon 0.09 IU/mL mitogen value (test code = 03289-1) SHERLY (test code = Performed at: [facility]) - [facility] [id number] Director: Colt Nicholas MD, Phone: [phone] [facility]-smooth muscle [id number] 20:10:00 Test Item Value Reference Range Interpretation Comments F-actin 4 See_Comment Negative 0 - 1 9 (smooth Weak positive 2 0 - muscle) Ab, 30 Moderate to IgG (test code strong positi ve >30 = 55034-2) Actin Antibodie s are found in 52-85% of patients with autoimmune hepa titis or chronic acti ve hepatitis and i n 22% of patients wit h primary biliary cirrhosis. [Automated mess age] The system Whereoscope generated this result transmit efren reference range : 0 - 19 Units. The reference range was not used to interpret this result as normal/abnormal . SHERLY (test code Performed at: - = SHERLY) [address] [id number] Director: Blank Pepper MD, Phone: [phone] [facility] mitochondria [id number] 20:10:00 Test Item Value Reference Range Interpretation Comments Mitochondrial Ab <20.0 See_Comment Negative 0 .0 - (test code = 20.0 Equivocal 47906-0) 20.1 - 24.9 Positive >24.9Mitochondr ia l (M2) Antibodi es are found in 90-96% ofpatien ts with primary biliary cirrhosis. [Automated message] The system which generated this result transmitted reference range : 0.0 - 20.0 Unit s. The reference range was not used to interpr et this result as normal/abnormal . [facility] (test code = Performed at: [facility]) - [address] [id number] Director: Blank Pepper MD, Phone: [phone] [facility]-smooth muscle [id number] 20:10:00 Test Item Value Reference Range Interpretation Comments F-actin 4 See_Comment Negative 0 - 1 9 (smooth Weak positive 2 0 - muscle) Ab, 30 Moderate to IgG (test code strong positi ve >30 = 36109-8) Actin Antibodie s are found in 52-85% of patients with autoimmune hepa titis or chronic acti ve hepatitis and i n 22% of patients wit h primary biliary cirrhosis. [Automated mess age] The system Where[employer] generated this result transmit efren reference range : 0 - 19 Units. The reference range was not used to interpret this result as normal/abnormal . [facility] (test code Performed at: - = [facility]) [address] [id number] Director: Blank Pepper MD, Phone: [phone] [facility] mitochondria [id number] 20:10:00 Test Item Value Reference Range Interpretation Comments Mitochondrial Ab <20.0 See_Comment Negative 0 .0 - (test code = 20.0 Equivocal 61201-7) 20.1 - 24.9 Positive >24.9Mitochondr ia l (M2) Antibodi es are found in 90-96% ofpatien ts with primary biliary cirrhosis. [Automated message] The system which generated this result transmitted reference range : 0.0 - 20.0 Unit s. The reference range was not used to interpr et this result as normal/abnormal . [facility] (test code = Performed at: [facility]) - [address] [id number] Director: Blank Pepper MD, Phone: [phone] [facility]2022-09-24 14:09:00 Test Item Value Reference Range Interpretation Comments GGT (test code = 1634 See_Comment HH Results con firmed 2324-2) ondilution. [Automated message] The system which generated this result transmitted reference range : 0 - 60 IU/L. Th e reference range was not used to interpret this result as normal/abnormal . [facility] (test code = [facility]) Performed at: [address] [id number] Director: Magdy Mcgee MD, Phone: [phone] Lab Interpretation Abnormal (test code = 33453-8) [facility]2022-09-24 14:09:00 Test Item Value Reference Range Interpretation Comments GGT (test code = 1634 See_Comment HH Results con firmed 2324-2) ondilution. [Automated message] The system which generated this result transmitted reference range : 0 - 60 IU/L. Th e reference range was not used to interpret this result as normal/abnormal . [facility] (test code = [facility]) Performed at: [address] [place] [id number] Director: Magdy Mcgee MD, Phone: [phone] Lab Interpretation Abnormal (test code = 37272-9) [facility] [id number] 14:11:00 Test Item Value Reference Range Interpretation Comments Glucose (test code = 478 mg/dL 65-99 H Effe ctive 2345-7) January 28, 2022 Glucose reference interval will b e changing to: 7 0 - 99 BUN (test code = 13 mg/dL - 3094-0) Creatinine (test code 0.56 mg/dL 0.57-1.00 L = 2160-0) eGFR (test code = 103 mL/min/1.73 >=59 8257) BUN/creatinine ratio 23 - (test code = 3097-3) Sodium (test code = 140 mmol/L 139-572 4758-2) Potassium (test code 3.8 mmol/L 3.5-5.2 = 2823-3) Chloride (test code = 96 mmol/L 96-106 2075-0) CO2 (test code = 26 mmol/L 20-29 2027-9) Calcium (test code = 8.8 mg/dL 8.7-10.3 46442-2) Protein (test code = 6.9 g/dL 6.0-8.5 2885-2) Albumin, S (test code 4.0 g/dL 3.8-4.8 = 1751-7) Globulin, total (test 2.9 g/dL 1.5-4.5 code = 63066-6) Albumin/globulin 1.4 1.2-2.2 ratio (test code = [...] AST (test code = 17 See_Comment [Automated 1919-12) message] The system which generated this result transmitted reference range : 0 - 40 IU/L. Th e reference range was not used to interpret this result as normal/abnormal . ALT (test code = 16 See_Comment [Automated 1741-10) message] The system which generated this result transmitted reference range : 0 - 32 IU/L. Th e reference range was not used to interpret this result as normal/abnormal . [facility] (test code = [facility]LY) Performed at: [facility] [id number] Director: Magdy Mcgee MD, Phone: [phone] Lab Interpretation Abnormal (test code = 07355-5) [facility]-reactive [id number] 14:11:00 Test Item Value Reference Range Interpretation Comments CRP (test code = 10 mg/L 0-1987-09) SHERLY (test code = Performed at: ) [facility] [id number] [place], [place] [id number] Director: Magdy Mcgee MD, Phone: [phone] [facility] with platelet and [id number] 14:11:00 Test Item Value Reference Range Interpretation Comments WBC (test code = 12.1 See_Comment H [Automated 6990-2) message] The system which generated this result transmitted reference range : 3.4 - 10.8 x10E3/uL. The reference range was not used to interpret this result as normal/abnormal . RBC (test code = 4.74 See_Comment [Automated 029-8) message] The system which generated this result [...] 1 % Not Estab. (test code = 57661-9) Immature 0.1 See_Comment [Automated granulocytes, message] The absolute (test code = system which 08016-4) generated this result transmitted reference range : 0.0 - 0.1 x10E3/uL. The reference range was not used to interpret this result as normal/abnormal . SHERLY (test code = SHERLY) Performed at: [facility] [id number] Director: Magdy Mcgee MD, Phone: [phone] Lab Interpretation Abnormal (test code = 23036-3) [facility] [id number] 14:11:00 Test Item Value Reference Range Interpretation Comments Sedimentation rate 43 See_Comment H [Automat ed (test code = 4537-7) message ] The system which generated this result transmitted reference range : 0 - 40 mm/hr. T he reference range was not used to interpret this result as normal/abnormal . SHERLY (test code = SHERLY) Performed at: [facility] [id number] Director: Magdy Mcgee MD, Phone: [phone] Lab Interpretation Abnormal (test code = 95233-7) [facility] [id number] 14:11:00 Test Item Value Reference Range Interpretation Comments Glucose (test code = 478 mg/dL 65-99 H Effe ctive 2345-7) January 28, 2022 Glucose reference interval will b e changing to: 70 - 99 BUN (test code = 13 mg/dL - 3094-0) Creatinine (test code 0.56 mg/dL 0.57-1.00 L = 2160-0) eGFR (test code = 103 mL/min/1.73 >=59 8257) BUN/creatinine ratio 05-01 (test code = 3097-3) Sodium (test code = 140 mmol/L 356-110 1103-2) Potassium (test code 3.8 mmol/L 3.5-5.2 = 2823-3) Chloride (test code = 96 mmol/L 96-106 5-0) CO2 (test code = 26 mmol/L -2027-9) Calcium (test code = 8.8 mg/dL 8.7-10.3 91079-0) Protein (test code = 6.9 g/dL 6.0-8.5 2885-2) Albumin, S (test code 4.0 g/dL 3.8-4.8 = 1751-7) Globulin, total (test 2.9 g/dL 1.5-4.5 code = 64113-4) Albumin/globulin 1.4 1.2-2.2 ratio (test code = 1759-0) Total bilirubin (test 0.3 mg/dL 0.0-1.2 code = 1975-2) Alkaline phosphatase 492 See_Comment H [Autom ated (test code = 6768-6) message ] The system which generated this result transmitted reference range : 44 - 121 IU/L. The reference range was not used to interpr et this result as normal/abnormal . AST (test code = 17 See_Comment [Automated 1919-8) message] The system which generated this result [...] (test code = SHERLY) Performed at: - [facility] [id number] Director: Magdy Mcgee MD, Phone: [phone] Lab Interpretation Abnormal (test code = 12893-6) [facility]-reactive [id number] 14:11:00 Test Item Value Reference Range Interpretation Comments CRP (test code = 10 mg/L 0-10 1987-09) SHERLY (test code = Performed at: SHERLY) [facility] [address] [id number] Director: Magdy Mcgee MD, Phone: [phone] [facility] with platelet and dlnolueedybz8778-18-11 14:11:00 Test Item Value Reference Range Interpretation Comments WBC (test code = 12.1 See_Comment H [Automated 3790-2) message] The system which generated this result transmitted reference range : 3.4 - 10.8 x10E3/uL. The reference range was not used to interpret this result as normal/abnormal . RBC (test code = 4.74 See_Comment [Automated 799-8) message] The system which generated this result [...] 1 % Not Estab. (test code = 18243-1) Immature 0.1 See_Comment [Automated granulocytes, message] The absolute (test code = system which 44116-3) generated this result transmitted reference range : 0.0 - 0.1 x10E3/uL. The reference range was not used to interpret this result as normal/abnormal . SHERLY (test code = SHERLY) Performed at: [address] [place] [id number] Director: Magdy Mcgee MD, Phone: [phone] Lab Interpretation Abnormal (test code = 51180-4) [facility] [id number] 14:11:00 Test Item Value Reference Range Interpretation Comments Sedimentation rate 43 See_Comment H [Automat ed (test code = 4537-7) message ] The system which generated this result transmitted reference range : 0 - 40 mm/hr. T he reference range was not used to interpret this result as normal/abnormal . SHERLY (test code = SHERLY) Performed at: [address] [place] [id number] Director: Magdy Mcgee MD, Phone: [phone] Lab Interpretation Abnormal (test code = 79448-6) [facility] 10:10:00 Test Item Value Reference Interpretation Comments Range Vectra score 51 Change in Score Multiple (test code = [place] [address]-0) meaningful changecalculati onVectra Score Interpret ationPatient has a High Vect ra Score and is at increased riskfor radiographic pr ogression. Consider adjust ing treatmentregime n to reduce inflammation, a nd [facility]. Risk of 9 % 1-Year Risk of Radiographic Radiographic Progression Progress (test code = 7750) Vectra(R) level Comment HighVectra D isease Activity (test code = Levels:High: 45 to 89641-5) 100Moderate: 30 to 44Low: 1 to 29 [...] of the patient. RI SK OF RADIOGRAPHIC OR OGRESSION (RP):The risk o f RP is [...] th e patient. This test was d eveloped and its performance characteristics determined by [facility]. It has not been cleared or appr ovedby the Food and Drug Administration. (C)2020 Laboratory [employer].All Rights Reserved . This document contai ns private and confidentia l healthinformati on protected by state and fe deral law. If you havereceive d this document in err or please call . V.1.0 01-23 AVI result (test 12 ug/mL RA Range: ( 0.29-85)RA code = 1847-3) Percentile: 8 6% CRP result (test 21 mg/L RA Range: ( 0.19-92)RA code = 1987-) Percentile: 8 5% VCAM-1 result 0.65 ug/mL RA Range: (0.3 9-1.2)RA (test code = Percentile: 51% 12275-0) IL-6 result 4.6 pg/mL RA Range: (2.5- 200)RA (test code = Percentile: 13% 06085-7) TNF-RI result 0.69 ng/mL RA Range: (0.8 -3.9)RA (test code = Percentile: <1% 32932-0) EGF result (test 83 pg/mL RA Range: ( 12-410)RA code = 27408-9) Percentile: 45% VEGF-A result 270 pg/mL RA Range: (75- 790)RA (test code = Percentile: 58% 98639-0) Leptin result 2.3 ng/mL RA Range: (1.5 -120)RA (test code = Percentile: 4% 71261-7) Resistin result 7.0 ng/mL RA Range: (3 .5-21)RA (test code = Percentile: 40% 47664-8) MMP-1 result 1.8 ng/mL RA Range: (1.3- 23)RA (test code = Percentile: 5% 31743-9) MMP-3 result 220 ng/mL RA Range: (7.9- 160)RA (test code = Percentile: 98% 31664-2) YKL-40 result 230 ng/mL RA Range: (22- 540)RA (test code = Percentile: 87% 05864-5) Biomarker Comment These reported analyte comment (test values and ref erence ranges code = 8098) are intendedfor use in the generation of t he Vectra score only. The se resultsshould n ot be used interchangeably with results generated bymoreliaf vineet methodologies. Footnote (test Comment RA Range: The se 95% code = 3976) reference range s were established fro m325,781 patient samples tested at [facility] [employer] [facility]. RA Percentile: Subject's bioma rker level relative to darshan castillodc RA patient specime ns from which the [...] in the Vectra algorith m, hasnot been aniya DUBOIS (test code = Performed at: SHERLY) 01 - [facility] [id number] [place] [id number] Director: Denton Méndez MD, Phone: [phone] judy Comment: Test(s) Glucose called to Tamara Ramos MA on 10/03/2021 at 18:09Specimen Comment: EST [facility] RailymgqJlalbk4208-50-80 10:10:00 Test Item Value Reference Interpretation Comments Range Vectra score 51 Change in Score Multiple (test code = [place] [address]-9) meaningful changecalculati onVectra Score Interpret ationPatient has [...] Activity (test code = Levels:High: 45 to 39598-5) 100Moderate: 30 to 44Low: 1 to 29 [...] of the patient. RI SK OF RADIOGRAPHIC OR OGRESSION (RP):The risk o f RP is [...] th e patient. This test was d eveloped and its performance characteristics determined by [facility]. It has not been cleared or appr ovedby the Food and Drug Administration. (C)2020 Laboratory [employer].All Rights Reserved . This document contai ns private and blancaia l healthinformati on protected by state and fe deral law. If you havereceive d this document in err or please call . V.1.01-23 AVI result (test 12 ug/mL RA Range: ( 0.29-85)RA code = 1847-3) Percentile: 8 6% CRP result (test 21 mg/L RA Range: ( 0.19-92)RA code = 1987-) Percentile: 8 5% VCAM-1 result 0.65 ug/mL RA Range: (0.3 9-1.2)RA (test code = Percentile: 51% 29465-2) IL-6 result 4.6 pg/mL RA Range: (2.5- 200)RA (test code = Percentile: 13% 88231-9) TNF-RI result 0.69 ng/mL RA Range: (0.8 -3.9)RA (test code = Percentile: <1% 27836-8) EGF result (test 83 pg/mL RA Range: ( 12-410)RA code = 84611-6) Percentile: 45% VEGF-A result 270 pg/mL RA Range: (75- 790)RA (test code = Percentile: 58% 02739-7) Leptin result 2.3 ng/mL RA Range: (1.5 -120)RA (test code = Percentile: 4% 17499-2) Resistin result 7.0 ng/mL RA Range: (3 .5-21)RA (test code = Percentile: 40% 03073-6) MMP-1 result 1.8 ng/mL RA Range: (1.3- 23)RA (test code = Percentile: 5% 97590-4) MMP-3 result 220 ng/mL RA Range: (7.9- 160)RA (test code = Percentile: 98% 43332-7) YKL-40 result 230 ng/mL RA Range: (22- 540)RA (test code = Percentile: 87% 72394-2) Biomarker Comment These reported analyte comment (test values and ref erence ranges code = 8098) are intendedfor use in the generation of t he Vectra score only. The se resultsshould n ot be used interchangeably with results generated bymoreliaf vineet mary. Footnote (test Comment RA Range: The se 95% code = 3976) reference range s were established fro m325,781 patient samples tested at [facility]. RA Percentile: Subject's bioma [...] the Vectra algorith m, hasnot been establishe melva DUBOIS (test code = Performed at: [facility]) [facility] [employer] [id number] Director: Denton Méndez MD, Phone: [phone] cimen Comment: Test(s) Glucose called to Tamara Ramos MA on 10/03/2021 at 18:09Specimen Comment: EST [facility] HospitalUrinalysis, automated with [id number] 14:10:00 Test Item Value Reference Range Interpretation Comments Specific gravity, >=1.030 1.005-1.030 A urine (test code = 5811-5) pH, urine (test code 6.0 5.0-7.5 = 5803-2) Color, UA (test code Yellow Yellow = 5778-6) Appearance (test code Clear Clear = 5767-9) WBC esterase, urine Negative Negative (test code = 5799-2) Protein, UA (test Negative Negative/Trace code = 78991-9) Glucose, urine (test 3+ Negative A code = 85957-0) Ketones, UA (test 1+ Negative A code = 2514-8) Occult blood, urine Trace Negative A (test code = 5794-3) Bilirubin, UA (test Negative Negative code = 5770-3) Urobilinogen, UA 0.2 mg/dL 0.2-1.0 (test code = 97753-0) Nitrite, UA (test Negative Negative code = 5802-4) Microscopic See below: Microscopic was examination (test indicated and was code = 45517-2) performed. SHERLY (test code = SHERLY) Performed at: [facility] [id number] Director: Magdy Mcgee MD, Phone: [phone] Lab Interpretation Abnormal (test code = 70671-7) [facility] [id number] 14:10:00 Test Item Value Reference Range Interpretation Comments WBC, UA (test code 0-5 See_Comment [Automat ed = 5821-4) message] The system which generated this result transmit efren reference range : 0 - 5 /hpf. The reference range was not used to interpret this result as normal/abnormal . RBC, UA (test code None seen See_Comment [Automat ed = 42149-6) message] The system which generated this result [...] code = None seen None seen /lpf 35690-7) Bacteria, UA (test None seen None seen/Few code = 5769-5) SHERLY (test code = Performed at: - SHERLY) [facility] [address] [id number] Director: Magdy Mcgee MD, Phone: [phone] [facility] HospitalUrinalysis, automated with krphtaqyzn5011-13-55 14:10:00 Test Item Value Reference Range Interpretation Comments Specific gravity, >=1.030 1.005-1.030 A urine (test code = 5811-5) pH, urine (test code 6.0 5.0-7.5 = 5803-2) Color, UA (test code Yellow Yellow = 5778-6) Appearance (test code Clear Clear = 5767-9) WBC esterase, urine Negative Negative (test code = 5799-2) Protein, UA (test Negative Negative/Trace code = 47129-1) Glucose, urine (test 3+ Negative A code = 74573-7) Ketones, UA (test 1+ Negative A code = 2514-8) Occult blood, urine Trace Negative A (test code = 5794-3) Bilirubin, UA (test Negative Negative code = 5770-3) Urobilinogen, UA 0.2 mg/dL 0.2-1.0 (test code = 86948-5) Nitrite, UA (test Negative Negative code = 5802-4) Microscopic See below: Microscopic was examination (test indicated and was code = 61965-6) performed. SHERLY (test code = SHERLY) Performed at: [facility] [id number] Director: Magdy Mcgee MD, Phone: [phone] Lab Interpretation Abnormal (test code = 92404-3) [facility] Fawlmhyvlix5698-80-70 14:10:00 Test Item Value Reference Range Interpretation Comments WBC, UA (test code 0-5 See_Comment [Automat ed = 5821-4) message] The system which generated this result transmit efren reference range : 0 - 5 /hpf. The reference range was not used to interpret this result as normal/abnormal . RBC, UA (test code None seen See_Comment [Automat ed = 88970-2) message] The system which generated this result [...] code = None seen None seen /lpf 54291-4) Bacteria, UA (test None seen None seen/Few code = 5769-5) SHERLY (test code = Performed at: SHERLY) [facility] [address] [id number] Director: Magdy Mcgee MD, Phone: [phone] [facility]
--- NOTE | 2022-09-24 15:02 | RAD REPORT ---
EXAM DESCRIPTION: CT - Ct Stroke Brain Wo Cont - 09/24/2022 2:52 pm CLINICAL HISTORY: STROKE ALERT COMPARISON: Head angio dated 09/19/2022; Ct Stroke Brain Wo Cont dated 09/19/2022; Brain W/Wo Cont devora ed 09/20/2022 TECHNIQUE: Noncontrast head CT images ad were obtained without IV contrast. Multiplanar reformats we re generated and reviewed. All CT scans are performed using dose optimization technique as appropriate and may include automated exposure control or mA/KV adjustment according to patient size. FINDINGS: No intracranial hemorrhage, mass, or edema. Midline structures are unremarkable. Normal ventricular caliber for age. Feng-white matter differentiation is preserved, without evidence of acute infarct. No abnormal extra- axial fluid collections. Stable patchy white matter hypodensities, nonspecific but most suggestive of chronic small vessel isc hemic changes. Mastoid air cells and visualized portions of the paranasal sinuses are clear. No acute bony findings. IMPRESSION: No evidence of an acute intracranial process. Stable nonspecific white matter patchy h ypodensities, most suggestive of chronic small vessel ischemic changes. The findings were communicated to Tony Flores on 09/24/2022 at 14:58 hours.
[2022-09-24 15:17] LABS: Absolute Lymphocytes (CBC) 3.1 K/uL (0.7-4.9); Hematocrit 43.5 % (36.0-45.0); Lymphocytes % 22.2 % (15.3-44.8); MPV 7.3 fL (7.6-11.3); RBC Red Blood Cell Count 4.83 M/uL (3.86-4.86)
[2022-09-24 15:26] LABS: Protime INR 0.94
--- NOTE | 2022-09-24 15:31 | RAD REPORT ---
EXAM DESCRIPTION: CT - Neck Angio - 09/24/2022 3:03 pm CLINICAL HISTORY: code stroke COMPARISON: Head angio dated 09/24/2022; Ct Stroke Brain Wo Cont dated 09/24/2022 TECHNIQUE: Axial CT angiography images of the head was performed with multiplanar and maximum intens ity projection reconstructions. Images performed following intravenous administration of 100mL Isovue 370. All CT scans are performed using dose optimization technique as appropriate and may include automated exposure control or mA/KV adjustment according to patient size. Quantification of carotid stenosis, if any, is performed according to NASCET criteria. FINDINGS: A left aortic arch is identified with normal three vessel configuration of the great vesse ls. No significant flow abnormality is seen of the common carotid bilaterally. Mild bilateral atherosclerotic plaque formation at the carotid bifurcations more pronounced on the ri ght, with mixed composition on the right, and predominantly calcified plaque on the left. Mild plaque surface irregularity on the right. No significant stenosis is identified involving the cervical segm ents of both internal carotid arteries. Normal flow is seen within both vertebral arteries. IMPRESSION: No significant flow abnormality of the neck vessels is identified. Atherosclerotic frey ges as above.
--- NOTE | 2022-09-24 15:33 | RAD REPORT ---
EXAM DESCRIPTION: CT - Head angio - 09/24/2022 3:03 pm CLINICAL HISTORY: WEAKNESS COMPARISON: Ct Stroke Brain Wo Cont dated 09/24/2022; Head angio dated 09/19/2022 TECHNIQUE: Axial CT angiography images of the head was performed with multiplanar and maximum intens ity projection reconstructions. Images performed following intravenous administration of 100mL Isovue 370. All CT scans are performed using dose optimization technique as appropriate and may include automated exposure control or mA/KV adjustment according to patient size. FINDINGS: No evidence of large vessel occlusion. No evidence of aneurysm or dissection flap is detec efren. No flow-limiting stenosis or vascular malformation identified. Antegrade flow is seen in the vertebral arteries. The vertebral arteries are codominant. The visualized dural venous sinuses are grossly patent. IMPRESSION: No evidence of large vessel occlusion or flow-limiting stenosis.
[2022-09-24 15:38] LABS: Albumin 2.7 g/dL (3.4-5.0); Bilirubin Direct 0.1 mg/dL (0-0.2); Bilirubin Indirect, Calculated 0.4 mg/dL (0.2-0.8); Bilirubin Total 0.5 mg/dL (0.2-1.0); Magnesium 1.7 mg/dL (1.6-2.4); Potassium 4.2 mEq/L (3.5-5.1); Protein, Total 7.1 g/dL (6.4-8.2); Troponin High Sensitivity 15.9 pg/mL (<58.9)
--- NOTE | 2022-09-24 15:56 | ER ---
Nurse's Notes [facility] Name: Janet Arredondo Age: 61 yrs Sex: Female : 1960 Arrival Date: 09/24/2022 Time: 14:41 Bed 17 Private MD: Diagnosis: Altered mental status, left-sided weakness, rheumatoid arthritis Presentation: 09/24 14:45 Chief complaint: EMS states: patients son called and stated she had the same symptoms ko1 she had this past Friday when she was sent here. Left side flaccid. Coronavirus screen: At this time, the client does not indicate any symptoms associated with coronavirus-19. Ebola Screen: No symptoms or risks identified at this time. Initial Sepsis Screen: Does the patient meet any 2 criteria? No. Patient's initial sepsis screen is negative. Does the patient have a suspected source of infection? No. Patient's initial sepsis screen is negative. Risk Assessment: Do you want to hurt yourself or someone else? Patient reports no desire to harm self or others. Onset of symptoms was September 24, 2022 at 14:00. 14:45 Method Of Arrival: EMS: [facility] ko1 14:45 Acuity: SYLVESTER 2 ko1 Triage Assessment: 15:06 General: Appears in no apparent distress. uncomfortable, Behavior is calm, cooperative, ko1 appropriate for age. Pain: Denies pain. Historical: - Allergies: 15:06 No Known Allergies; ko1 - PMHx: 15:06 Rheumatoid Arthritis; Transient cerebral ischemia; ko1 - Immunization history:: Adult Immunizations up to date. - Social history:: Smoking status: Patient denies any tobacco usage or history of. Screenin:14 [facility] ED Fall Risk Assessment (Adult) History of falling in the last 3 months, ko1 including since admission Yes- single mechanical fall (1 pt) Confusion or Disorientation No (0 pts) Intoxicated or Sedated No (0 pts) Impaired Gait Yes (1 pt) Mobility Assist Device Used Yes (1 pt) Altered Elimination No (0 pt) Score/Fall Risk Level 3 or more points = High Risk Oriented to surroundings, Maintained a safe environment, Educated pt \T\ family on fall prevention, incl call for assistance when getting out of bed, Assessed \T\ reinforced patient's understanding of fall precautions, Provided non-skid footwear, Hourly rounding (assess needs \T\ fall precautionary measures) done, Used ambulatory aids as needed (educated on \T\ assisted with), Used gait belt as appropriate Apply high fall risk patient identification: yellow non skid footwear/ fall signage, Remained w/in arm's length of patient and in sight while toileting, Offered frequent toileting (1:1 observation), Remained with patient while ambulating, Utilized family, sitter, or virtual barge hand as indicated. Abuse screen: Denies threats or abuse. Denies injuries from another. Nutritional screening: No deficits noted. Tuberculosis screening: No symptoms or risk factors identified. Assessment: 15:06 General: Appears in no apparent distress. comfortable, Behavior is calm, cooperative, ko1 appropriate for age. Pain: Denies pain. Neuro: Level of Consciousness is awake, alert, obeys commands, Oriented to person, place, time, situation, Appropriate for age Meat Team Lead are weak on left Paralysis in left arm(s) leg(s) Speech is slurred, Facial droop on left, Intact. Cardiovascular: No deficits noted. Respiratory: No deficits noted. GI: No deficits noted. : No deficits noted. EENT: No deficits noted. Derm: Bruising that is on left tricep. Musculoskeletal: Range of motion: limited in left arm and leg. 16:00 Reassessment: Patient appears in no apparent distress at this time. Patient and/or ko1 family updated on plan of care and expected duration. Pain level reassessed. 17:00 Reassessment: Patient appears in no apparent distress at this time. ko1 18:00 Reassessment: No changes from previously documented assessment. ko1 19:25 General: Appears comfortable, Behavior is calm, cooperative. Pain: Denies pain. Neuro: ha1 Level of Consciousness is awake, alert, obeys commands, Oriented to person. Cardiovascular: Patient's skin is warm and dry. Respiratory: Airway is patent Respiratory effort is even, unlabored, Respiratory pattern is regular, symmetrical. Musculoskeletal: Range of motion: limited in left arm and left leg. 20:22 Reassessment: Patient and/or family updated on plan of care and expected duration. Pain ha1 level reassessed. Patient is alert, oriented x 3, equal unlabored respirations, skin warm/dry/pink. Vital Signs: 15:08 BP 146 / 92; Pulse 93; Resp 18; Temp 98; Pulse Ox 99% ; Weight 79.38 kg; Height 5 ft. 6 ko1 in. ; 15:30 BP 112 / 77; Pulse 81; Resp 16; Pulse Ox 99% ; ko1 15:45 BP 107 / 68; Pulse 86; Resp 18; Pulse Ox 98% ; ko1 16:15 BP 119 / 80; Pulse 80; Resp 16; Pulse Ox 97% ; ko1 16:45 BP 135 / 72; Pulse 80; Resp 16; Pulse Ox 98% ; ko1 17:59 BP 135 / 86; Pulse 88; Resp 18; Pulse Ox 99% ; ko1 18:56 BP 124 / 64; Pulse 87; Resp 18; Pulse Ox 98% ; ko1 19:15 BP 129 / 91; Pulse 79; Resp 18 S; Pulse Ox 97% on R/A; ha1 19:50 BP 129 / 86; Pulse 88; Resp 18 S; Pulse Ox 98% on R/A; ha1 15:08 Body Mass Index 28.25 (79.38 kg, 167.64 cm) ko1 NIH Stroke Scale Scores: 15:14 NIHSS Score: 14 ko1 ED Course: 14:43 Patient arrived in ED. bd 14:44 Yesenia Cardoso MD is Attending Physician. sp3 14:45 Ju Stratton, JAVIER is Primary Nurse. ko1 14:54 CT Stroke Brain w/o Contrast In Process Unspecified. EDMS 15:00 Initial lab(s) drawn, by me, sent to lab. Inserted saline lock: 20 gauge in left iw forearm, using aseptic technique. Blood collected. 15:05 CT Head Angio In Process Unspecified. EDMS 15:05 CT Neck Angio In Process Unspecified. EDMS 15:06 Triage completed. ko1 15:06 Arm band placed on left wrist. Patient placed in an exam room, on a stretcher, on ko1 monitoring analyst, on pulse oximetry, Patient notified of wait time. 15:06 No provider procedures requiring assistance completed. ko1 15:14 Patient has correct armband on for positive identification. Bed in low position. Call ko1 light in reach. Side rails up X2. Client placed on continuous cardiac and pulse oximetry monitoring. NIBP monitoring applied. front desk monitor on. Door closed. Noise minimized. Lights dimmed. Warm blanket given. 15:52 Stroke CXR 1 View In Process Unspecified. EDMS 15:55 Shar Mary MD is Hospitalizing Provider. sp3 20:31 Patient admitted, IV remains in place. ha1 Administered Medications: No medications were administered Medication: 15:06 VIS not applicable for this client. ko1 Outcome: 15:56 Decision to Hospitalize by Provider. sp3 20:30 Admitted to Med/surg accompanied by tech, via wheelchair, room 218, with chart, Report ha1 called to JAVIER Berrios 20:30 Condition: stable 20:30 Discharge instructions given to patient, Instructed on the need for admit, Demonstrated understanding of instructions. 21:02 Patient left the ED. ha1 NIH Stroke Scale - NIH Stroke Score Date: 09/24/2022 Time: 15:14 Total Score = 14 10. Dysarthria (speech clarity - read or repeat words) - 1(Mild to Moderate) 11. Extinction and Inattention (visual/tactile/auditory/spatial/personal) - 0(No abnormality) 1a. Level of Consciousness (LOC) - 0(Alert) 1b. Level of Consciousness (LOC) (Month \T\ Age) - 0(Both) 1c. LOC Commands (Open \T\ Closes Eyes/Dustless Operator) - 0(Both) 2. Best Gaze (Lateral Gaze Paresis) - 1(Partial gaze palsy) 3. Visual Field Loss - 1(Partial hemianopia) 4. Facial Palsy - 1(Minor Paralysis) 5a. Left Arm: Motor (10-second hold) - 4(No movement) 5b. Right Arm: Motor (10-second hold) - 0(No drift) 6a. Left Leg: Motor (5-second hold - always test supine) - 4(No movement) 6b. Right Leg: Motor (5-second hold - always test supine) - 0(No drift) 7. Limb Ataxia (finger/nose \T\ heel/pal - test with eyes open) - 0(Absent) 8. Sensory Loss (pinprick arms/legs/face) - 1(Mild to moderate loss) 9. Best Language: Aphasia (description/naming/reading) - 1(Mild to moderate aphasia) Initials: ko1 Signatures: Dispatcher [employer] EDMS Ragini White Irene, RN RN iw Patel, Setul, MD MD sp3 Netta Membreno RN RN ha1 Ju Stratton RN RN ko1 Corrections: (The following items were deleted from the chart) 15:07 15:06 Home Meds: metoprolol tartrate 100 mg Oral tab 1 tab once daily; ko1 ko1
--- NOTE | 2022-09-24 15:56 | EDPHYS ---
Physician Documentation [facility] Name: Janet Arredondo Age: 61 yrs Sex: Female : 1960 Arrival Date: 09/24/2022 Time: 14:41 Bed 17 Private MD: ED Physician Yesenia Cardoso HPI: 09/24 15:01 This 61 yrs old Female presents to ER via Unassigned with complaints of Left sided sp3 weakness. 15:01 61-year-old female with history of rheumatoid arthritis presents again today for sp3 left-sided weakness. She also has chronic degenerative changes in the left hip and other joints in her body. She presented last week for the same symptoms at which point a code stroke was called and she was subsequently admitted to the hospital for further evaluation. She was discharged and then now today presents with altered mental status, left-sided weakness and inability to raise her left side in a similar fashion. Last time she had weakness but was still able to raise her left upper extremity. Today she is unable to do so. She is also still altered today and therefore history, physical and ROS are limited. She denies current headache, neck pain, chest pain, shortness of breath, right-sided symptoms, abdominal pain, nausea, vomiting, diarrhea, fever, known sick contacts, URI symptoms, travel history, or any other signs or symptoms on ROS at this time.. Historical: - Allergies: 15:06 No Known Allergies; ko1 - PMHx: 15:06 Rheumatoid Arthritis; Transient cerebral ischemia; ko1 - Immunization history:: Adult Immunizations up to date. - Social history:: Smoking status: Patient denies any tobacco usage or history of. ROS: 15:03 Unable to obtain ROS due to Limited ROS see HPI for further information.. sp3 Exam: 15:03 Constitutional: This is a well developed, well nourished patient who is awake, alert, sp3 and in no acute distress. Head/Face: Normocephalic, atraumatic. Neck: Trachea midline, no thyromegaly or masses palpated, and no cervical lymphadenopathy. Supple, full range of motion without nuchal rigidity, or vertebral point tenderness. No Meningismus. Chest/axilla: Normal chest wall appearance and motion. Nontender with no deformity. No lesions are appreciated. Cardiovascular: Regular rate and rhythm with a normal S1 and S2. No gallops, murmurs, or rubs. Normal PMI, no JVD. No pulse deficits. Respiratory: Lungs have equal breath sounds bilaterally, clear to auscultation and percussion. No rales, rhonchi or wheezes noted. No increased work of breathing, no retractions or nasal flaring. Abdomen/GI: Soft, non-tender, with normal bowel sounds. No distension or tympany. No guarding or rebound. No evidence of tenderness throughout. 15:03 Musculoskeletal/extremity: Left lower extremity shortened and externally rotated which is her baseline.. 15:03 Neuro: Limited neuro exam secondary to patient being altered. No facial weakness noted. Cranial nerves grossly intact. Left upper extremity and left lower extremity weakness noted at 2/5. This is slightly worse than her last presentation last week.. Vital Signs: 15:08 BP 146 / 92; Pulse 93; Resp 18; Temp 98; Pulse Ox 99% ; Weight 79.38 kg; Height 5 ft. 6 ko1 in. ; 15:30 BP 112 / 77; Pulse 81; Resp 16; Pulse Ox 99% ; ko1 15:45 BP 107 / 68; Pulse 86; Resp 18; Pulse Ox 98% ; ko1 16:15 BP 119 / 80; Pulse 80; Resp 16; Pulse Ox 97% ; ko1 16:45 BP 135 / 72; Pulse 80; Resp 16; Pulse Ox 98% ; ko1 17:59 BP 135 / 86; Pulse 88; Resp 18; Pulse Ox 99% ; ko1 18:56 BP 124 / 64; Pulse 87; Resp 18; Pulse Ox 98% ; ko1 19:15 BP 129 / 91; Pulse 79; Resp 18 S; Pulse Ox 97% on R/A; ha1 19:50 BP 129 / 86; Pulse 88; Resp 18 S; Pulse Ox 98% on R/A; ha1 15:08 Body Mass Index 28.25 (79.38 kg, 167.64 cm) ko1 NIH Stroke Scale Scores: 15:14 NIHSS Score: 14 ko1 MDM: 14:47 Patient medically screened. sp3 15:04 Data reviewed: vital signs, nurses notes, EMS record, old medical records, lab test sp3 result(s), EKG, radiologic studies. ED course: 61-year-old female who returns again for left-sided weakness. Code stroke has been called and patient will receive CT scan of the head and arteriograms. Initial CT noncontrast is negative as reported by radiology. Remainder of laboratory work-up is pending and we will again place patient in observation status under the inpatient hospitalist team. Differential diagnosis includes TIA, CVA, degenerative changes, peripheral neuropathy, ACS, among others.. 15:54 ED course: Work-up thus far negative. Patient still having significant issues with the sp3 left upper extremity with weakness. I do not believe patient is having an acute CVA and there may be more of a local issue related to the arthritic changes. Patient will need help with daily needs and therefore will place in observation until proper discharge evaluation can be assessed.. 09/24 14:47 Order name: Basic Metabolic Panel; Complete [facility]: [facility] 09/24 14:47 Order name: CBC with Diff; Complete Time: 15:50 [facility] 09/24 14:47 Order name: Hepatic Function; Complete Time: 15:50 [facility] 09/24 14:47 Order name: High Sensitivity Troponin; Complete Time: 15:50 [facility] 09/24 14:47 Order name: Magnesium; Complete Time: 15:50 [facility] 09/24 14:47 Order name: Protime (+inr); Complete Time: 15:50 [facility] 09/24 14:47 Order name: Ptt, Activated; Complete Time: 15:50 [facility] 09/24 15:54 Order name: [facility] 09/24 19:34 Order name: Phosphorus [facility] 09/24 19:34 Order name: Creatine Phosphokinase [facility] 09/24 19:34 Order name: T4 Free [facility] 09/24 19:34 Order name: Magnesium [facility] 09/24 19:34 Order name: Thyroid Stimulating Hormone [facility] 09/24 14:47 Order name: CT Stroke Brain w/o Contrast; Complete Time: 15:50 [facility] 09/24 14:47 Order name: Stroke CXR 1 View [facility] 09/24 14:47 Order name: CT Head Angio; Complete Time: 15:50 [facility] 09/24 14:47 Order name: CT Neck Angio; Complete Time: 15:50 [facility] 09/24 14:47 Order name: EKG; Complete Time: 14:48 [facility] 09/24 14:47 Order name: Accucheck; Complete Time: 16:09 [facility] 09/24 14:47 Order name: Cardiac monitoring; Complete Time: 16:09 sp3 09/24 14:47 Order name: EKG - Nurse/Tech; Complete Time: 16:53 sp3 09/24 14:47 Order name: IV Saline Lock; Complete Time: 15:11 sp3 09/24 14:47 Order name: Labs collected and sent; Complete Time: 15:11 sp3 09/24 14:47 Order name: NPO; Complete Time: 16:09 sp3 09/24 14:47 Order name: O2 Per Protocol; Complete Time: 16:09 sp3 09/24 14:47 Order name: O2 Sat Monitoring; Complete Time: 16:09 sp3 09/24 14:47 Order name: Stroke Swallow Screen; Complete Time: 16:09 sp3 Administered Medications: No medications were administered Disposition Summary: 09/24/22 15:56 Hospitalization Ordered Hospitalization Status: Observation sp3 Provider: Shar Mary sp3 Location: Telemetry/MedSurg (observation) sp3 Condition: Stable sp3 Problem: an acute exacerbation sp3 Symptoms: have worsened sp3 Bed/Room Type: Standard sp3 Room Assignment: 218(09/24/22 20:05) mw Diagnosis - Altered mental status, left-sided weakness, rheumatoid arthritis sp3 Forms: - Medication Reconciliation Form sp3 - SBAR form sp3 NIH Stroke Scale - NIH Stroke Score Date: 09/24/2022 Time: 15:14 Total Score = 14 10. Dysarthria (speech clarity - read or repeat words) - 1(Mild to Moderate) 11. Extinction and Inattention (visual/tactile/auditory/spatial/personal) - 0(No abnormality) 1a. Level of Consciousness (LOC) - 0(Alert) 1b. Level of Consciousness (LOC) (Month \T\ Age) - 0(Both) 1c. LOC Commands (Open \T\ Closes Eyes/Supervisor Accounts Receivable) - 0(Both) 2. Best Gaze (Lateral Gaze Paresis) - 1(Partial gaze palsy) 3. Visual Field Loss - 1(Partial hemianopia) 4. Facial Palsy - 1(Minor Paralysis) 5a. Left Arm: Motor (10-second hold) - 4(No movement) 5b. Right Arm: Motor (10-second hold) - 0(No drift) 6a. Left Leg: Motor (5-second hold - always test supine) - 4(No movement) 6b. Right Leg: Motor (5-second hold - always test supine) - 0(No drift) 7. Limb Ataxia (finger/nose \T\ heel/pal - test with eyes open) - 0(Absent) 8. Sensory Loss (pinprick arms/legs/face) - 1(Mild to moderate loss) 9. Best Language: Aphasia (description/naming/reading) - 1(Mild to moderate aphasia) Initials: ko1 Signatures: Dispatcher [employer] EDPenelope Baez RN RN mw Yesenia Cardoso MD MD sp3 Ju Stratton RN RN ko1 Corrections: (The following items were deleted from the chart) 15:07 15:06 Home Meds: metoprolol tartrate 100 mg Oral tab 1 tab once daily; ko1 ko1 20:05 15:56 sp3 mw
--- NOTE | 2022-09-24 16:01 | RAD REPORT ---
EXAM DESCRIPTION: RADChest Single View09/24/2022 3:50 pm CLINICAL HISTORY: STROKE COMPARISON: Chest Single View dated 09/19/2022; Chest Single View dated 04/30/2020; CHEST PA AND LAT 2 VIEW dated 06/15/2015; CHEST SINGLE VIEW dated 01/03/2014 TECHNIQUE: Portable AP view of the chest. FINDINGS: The lungs are clear. No pneumothorax or effusion. The cardiomediastinal contours are unrem arkable. IMPRESSION: No acute cardiopulmonary process.
[2022-09-24] MEDS ORDERED: ACETAMINOPHEN 325 MG TABLET PO PRN (18:06)
[2022-09-24] MEDS ORDERED: ONDANSETRON 4 MG/2 ML VIAL IV PRN (18:10)
--- NOTE | 2022-09-24 18:14 | P.HP ---
Certification for Inpatient Patient admitted to: Inpatient With expected LOS: >2 Midnights Patient will require the following post-hospital care: None Practitioner: I am a practitioner with admitting privileges, knowledge of patient current condition, hospital course, and medical plan of care. Services: Services provided to patient in accordance with Admission requirements found in Title 42 Section 412.3 of the Code of Federal Regulations Patient History Date of Service: 09/24/22 Reason for admission: Altered mental status and left-sided weakness History of Present Illness: Patient is a 61-year-old female with a past medical history significant for rheumatoid arthritis, CVA, hyperlipidemia, DM2 with neuropathy, nicotine dependence who presents with complaint of altered mental status and left-sided weakness. Patient is alert and oriented x2. Patient is confused and unable to provide accurate history. Patient reported associated signs and symptoms of fatigue and generalized malaise. Patient denies any other signs and symptoms. Symptoms are aggravated or relieved by nothing. Patient was brought to the hospital for medical evaluation. Allergies No Known Allergies Allergy (Verified 05/01/20 00:30) Home Medications: Metoprolol Tartrate 100 mg PO DAILY 05/01/20 Ropinirole HCl 2 mg PO BEDTIME 05/01/20 predniSONE [Prednisone*] 5 mg PO DAILY 05/01/20 Insulin Glargine,Hum.rec.anlog [Lantus] 15 unit SQ BREAKFAST #2 vial 05/02/20 Metoclopramide HCl [Reglan] 10 mg PO AC #30 tablet 05/03/20 Aspirin [Aspirin EC 81 MG] 81 mg PO DAILY #30 tab 09/23/22 Atorvastatin Calcium [Lipitor*] 40 mg PO BEDTIME #30 tab 09/23/22 Cefpodoxime Proxetil 100 mg PO BID #6 tab 09/23/22 Clopidogrel Bisulfate [Plavix*] 75 mg PO DAILY #30 tab 09/23/22 Folic Acid 1 mg PO DAILY #30 tab 09/23/22 Gabapentin 300 mg PO BID #60 cap 09/23/22 Hydrocodone 5/APAP 325 [[place] 5/325*] 1 tab PO Q6H PRN #15 tab 09/23/22 lisinopriL [Prinivil*] 20 mg PO DAILY #30 tab 09/23/22 - Past Medical/Surgical History -: Hypertension -: Rheumatoid arthritis -: CVA -: DM 2 with neuropathy -: Nicotine dependence -: Hyperlipidemia -: Right hip replacement Psychosocial/ Personal History: Patient lives with her son - Social History Smoking Status: Light Tobacco smoker (1-9 cigarettes/day) Smoking therapy provided: Yes Patient receptive to therapy: No (Patient confused) Alcohol use: No CD- Drugs: No Caffeine use: No Place of Residence: Home Review of Systems is unable to be obtained (Patient confused.) Physical Examination - Physical Exam General: Alert, In no apparent distress, Oriented x2, Confused HEENT: Atraumatic, PERRLA, Mucous membr. moist/pink, EOMI, Sclerae nonicteric Neck: Supple, 2+ carotid pulse no bruit, No LAD, Without JVD or thyroid abnormality Respiratory: Clear to auscultation bilaterally, Normal air movement Cardiovascular: No edema, Regular rate/rhythm, Normal S1 S2 Capillary refill: <2 Seconds Gastrointestinal: Normal bowel sounds, Soft and benign, Non-distended, No tenderness Musculoskeletal: No clubbing, No swelling, No tenderness Integumentary: No rashes Neurological: Normal speech, Normal tone, Normal affect, Abnormal strength Lymphatics: No axilla or inguinal lymphadenopathy - Studies Laboratory Data (last 24 hrs) 09/24/22 15:00: PT 10.3, INR 0.94, APTT 27.5 09/24/22 15:00: WBC 14.00 H, Hgb 14.5, Hct 43.5, Plt Count 351 09/24/22 15:00: Sodium 135 L, Potassium 4.2, BUN 13, Creatinine 0.54 L, Glucose 240 H, Magnesium 1.7, Total Bilirubin 0.5, AST 12 L, ALT 18, Alkaline Phosphatase 230 H Assessment and Plan - Plan -- Left-sided weakness. Patient was discharged from the hospital yesterday for similar symptoms. MRI brain done on 09/20/2022 indicates 2 acute CVA seen right basal ganglia. Neurologist consulted. Continue aspirin and statin. PT eval and treat. Will await further recommendation from neurologist. --Acute encephalopathy. Unclear etiology. Nephrology on board. We will further recommendations. --History of CVA. Continue aspirin and statin. --Hyperlipidemia. Continue statin. --DM2 with neuropathy. BS monitoring with sliding scale insulin. Continue gabapentin for neuropathy. --Nicotine dependence. Patient placed on nicotine patch. Will be counseled on tobacco cessation when fully alert. --Leukocytosis. Likely reactive. Reassess levels in a.m. -- Rheumatoid arthritis. Continue current pain medication regimen. --Hypertension. We will allow for permissive retention pending evaluation by neurologist. We will continue to monitor blood pressure levels. --DVT prophylaxis with Lovenox subQ. Discharge Plan: Home Plan to discharge in: Greater than 2 days - Advance Directives Does patient have a Living Will: Yes Does patient have a Durable POA for Healthcare: Yes - Code Status/Comfort Care Code Status Assessed: Yes Physician Review: Patient Assessed, Agree with Above Assessment and Plan Critical Care: No
[2022-09-24 19:34] LABS: Magnesium 1.7 mg/dL (1.6-2.4); Phosphorus 4.1 mg/dL (2.5-4.9); Thyroid Stimulating Hormone 2.35 uIU/mL (0.358-3.740)
[2022-09-24 21:57] VITALS: BMI 28.2
[2022-09-24] MEDS: ATORVASTATIN 40 MG TAB PO SCH (22:45)
[2022-09-24] MEDS: INSULIN -REGULAR HUMAN 50 UNIT/0.5 ML ML SQ SCH (23:38)
[2022-09-24] MEDS: TRAMADOL HCL 50 MG TAB PO PRN (23:42)
[2022-09-25 03:35] LABS: Absolute Lymphocytes (CBC) 3.6 K/uL (0.7-4.9); Hematocrit 40.6 % (36.0-45.0); Lymphocytes % 29.5 % (15.3-44.8); MCV 89.6 fL (80-100); MPV 7.5 fL (7.6-11.3); RBC Red Blood Cell Count 4.53 M/uL (3.86-4.86)
[2022-09-25 04:02] LABS: Potassium 3.6 mEq/L (3.5-5.1)
[2022-09-25] MEDS: INSULIN -REGULAR HUMAN 50 UNIT/0.5 ML ML SQ SCH ×4 (07:30→21:00)
[2022-09-25] MEDS ORDERED: POTASSIUM 25 MEQ EFFERV TAB PO ONE (09:00)
[2022-09-25] MEDS: ASPIRIN 81 MG CHEWABLE TABLET PO SCH (09:33)
[2022-09-25] MEDS: TRAMADOL HCL 50 MG TAB PO PRN (09:34)
[2022-09-25] MEDS: ENOXAPARIN 40 MG/0.4 ML SQ SCH (09:35)
[2022-09-25] MEDS ORDERED: CODEINE 30MG/APAP 300MG TAB PO PRN (11:01)
[2022-09-25] MEDS: NICOTINE 14 MG/PAT TD SCH (11:29)
--- NOTE | 2022-09-25 13:18 | P.PN ---
Subjective Date of Service: 09/25/22 Chief Complaint: Altered mental status and left-sided weakness Subjective: C/O voiced (pain in the left arm and leg.) Physical Examination - Vital Signs Temperature: 98.6 F Blood Pressure: 158/98 Pulse: 83 Respirations: 16 Pulse Ox (%): 97 - Physical Exam General: Alert, Oriented x3 HEENT: Atraumatic, Normocephalic Neck: Supple Respiratory: Normal air movement Cardiovascular: Regular rate/rhythm, Normal S1 S2 Gastrointestinal: Soft and benign Neurological: Abnormal strength (left hemiplegia.) - Studies Laboratory Data (last 24 hrs) 09/24/22 15:00: PT 10.3, INR 0.94, APTT 27.5 09/24/22 15:00: WBC 14.00 H, Hgb 14.5, Hct 43.5, Plt Count 351 09/24/22 15:00: Sodium 135 L, Potassium 4.2, BUN 13, Creatinine 0.54 L, Glucose 240 H, Magnesium 1.7, Total Bilirubin 0.5, AST 12 L, ALT 18, Alkaline Phosphatase 230 H Assessment And Plan - Plan Assessment and Plan -- Left-sided weakness. Patient was discharged from the hospital 2 days ago for similar symptoms. MRI brain done on 09/20/2022 indicates 2 acute CVA seen right basal ganglia. Neurologist consulted. Continue aspirin and statin. PT eval and treat. Will await further recommendation from neurologist. --Acute encephalopathy. Unclear etiology. Nephrology on board. We will further recommendations. --History of CVA. Continue aspirin and statin. --Hyperlipidemia. Continue statin. --DM2 with neuropathy. BS monitoring with sliding scale insulin. Continue gabapentin for neuropathy. --Nicotine dependence. Patient placed on nicotine patch. Will be counseled on tobacco cessation prior to discharge. --Leukocytosis. Likely reactive. Reassess levels in a.m. -- Rheumatoid arthritis. Continue current pain medication regimen. --Hypertension. We will allow for permissive hypertention pending evaluation by neurologist. We will continue to monitor blood pressure levels. --DVT prophylaxis with Lovenox subQ. Discharge Plan: Home Plan to discharge in: Possibly in 1-2 days. Physician Review: Patient Assessed, Agree with Above Assessment and Plan
[2022-09-25] MEDS: GABAPENTIN 300 MG CAP PO SCH (15:47)
[2022-09-25] MEDS: HYDROCODONE/APAP 5/325 MG TAB PO PRN (15:48)
[2022-09-25] MEDS: ATORVASTATIN 40 MG TAB PO SCH (22:00)
--- NOTE | 2022-09-25 22:43 | CON ---
Date of Consultation: 09/25/2022 Reason For Consultation: Consultation called because of a possible stroke and altered mental status. History Of Present Illness: Ms. Arredondo is 61-year-old patient with hypertension, diabetes mellitu s, rheumatoid arthritis, and multiple recent strokes involving the right basal ganglia and producing left sided numbness and weakness. Her admission prior to this one was on the 20 of September, today is t he 25 of September. Her strokes were identified on MRI of the brain. She did have significant weakness on the left side at the beginning of symptoms and did not make it to the hospital within the 4.5 hour window for TNKs. She also had no large vessel occlusion that would make her a candidate for intraar terial thrombolysis. She was treated medically with aspirin, Plavix, folic acid, and statin. She wa s found to have urinary tract infection with elevated esterase, red blood cells elevated in the urine , bacteria greater than 50, with 2+ nitrites, ketones, and 4+ glucose. She was treated for urinary t ract infection. Her drug screen showed she was positive for opiates and marijuana. She did not disc harge to inpatient rehabilitation, but was discharged home on 09/23/2022, but came right back the with more confusion, disorientation, and complaints of diffuse pain. Her repeat CT scan o f the head when she came back on the , and this was done at 2:47 p.m., showed no acute stroke. T here was evidence of the prior stroke, which was noted on MRI. Her white blood cell count was elevat ed to 14,000 and prior to her discharge on the , it was 11,900. Neutrophils were normal at 71.8. Her repeat urinalysis is pending. At the time of my evaluation, she was able to identify myself. She could name objects such as a pen, watch, glasses and she followed instructions, although she was slow to respond. Past Medical History: As noted. Allergies: NO KNOWN DRUG ALLERGIES. Medications: At home are Tylenol No. 4 every 4 hours, metoprolol 100 mg twice daily, ropinirole 2 mg at bedtime, prednisone 5 mg daily, Omnicef 300 mg twice daily, Lantus 15 units at breakfast, and Reg rachel 10 mg at night. Social History: She smokes marijuana and opiates and drinks caffeinated beverages. She lives with [facility] son. Family History: Noncontributory. Past Surgical History: No recent surgeries. Review of Systems: The patient has had confusion and weakness as noted involving the left upper and lower extremities. No rash. No fevers. No chills. Physical Examination: Vital Signs: Blood pressure 138/93, pulse of 86, respiratory rate 16, temperature 98.9, and oxygen s aturation 98% on room air. General: Ms. Arredondo is resting in bed. She is in no acute distress. HEENT: She appears normocephalic, atraumatic. Sclerae anicteric. Oropharynx is pink and moist. Neck: Supple. Chest: Clear. Heart: Regular. Extremities: No significant edema or cyanosis. Neurologic: She is alert and oriented to situation and person. Follows simple commands without diff iculty. She can name objects and is just slow to respond. On cranial nerves, she has slight decreas e of the right nasolabial fold with fair excursions. In terms of her rest of her cranial nerve exam, slight decreased sensation on the right compared to left face. On motor examination, right upper an d lower extremity moderately weaker than the left and decreased sensation on the right compared to th e left side. Coordination slow, but intact in the upper and lower extremities. Reflexes are depress ed. She was unwilling to participate in upright activities such as ambulating. She did work with ph ysical therapist in bed, performing [id number] rolling in bed with maximum assistance. She refuse d to come to the edge of bed or out of bed. She reported significant pain on the right side. Assessment: Ms. Arredondo is 61-year-old patient with diabetes mellitus, hypertension, arthritis wit h diffuse [id number] pain with a right hemispheric stroke involving the basal ganglia and mul tiple areas and left-sided weakness and numbness including face, arm, and leg. She is positive for m arijuana and opiates. Plan: 1.Continue aspirin 81 mg, Plavix 75 mg, folate 1 mg, and Lipitor 40 mg at bedtime. 2.May use Lovenox 40 mg subcutaneously daily for DVT prophylaxis. 3.Try to work with the patient and encourage her to participate in physical therapy and if she is ca pable of doing therapy for 3.5 hours daily, she may be admitted to the inpatient rehabilitation unit for aggressive physical therapy. If she is unwilling or unable, she will be best placed in skilled n ursing rather than being discharged home and she will come right back to the hospital for readmission . CHIP/MARCIA Voice ID: [id number] Report ID: [id number]
[2022-09-26] MEDS: HYDROCODONE/APAP 5/325 MG TAB PO PRN ×4 (03:35→20:55)
[2022-09-26 04:14] LABS: Potassium 3.6 mEq/L (3.5-5.1)
[2022-09-26] MEDS: INSULIN -REGULAR HUMAN 50 UNIT/0.5 ML ML SQ SCH ×4 (07:30→23:44)
--- NOTE | 2022-09-26 08:39 | P.PN ---
Subjective Date of Service: 09/26/22 Chief Complaint: Altered mental status and left-sided weakness Subjective: No new changes, Improving Physical Examination - Vital Signs Temperature: 97.3 F Blood Pressure: 124/73 Pulse: 84 Respirations: 18 Pulse Ox (%): 97 - Physical Exam General: Alert, Oriented x3 HEENT: Atraumatic, Normocephalic Neck: Supple Respiratory: Normal air movement Cardiovascular: Regular rate/rhythm, Normal S1 S2 Gastrointestinal: Soft and benign Musculoskeletal: No swelling Assessment And Plan - Plan Assessment and Plan -- Left-sided weakness. likely due to issues with infection. No new lesions on imaging. Will await further recommendation from neurologist. --Acute encephalopathy. Unclear etiology. Neurology on board. We will further recommendations. --History of CVA. Continue aspirin and statin. --Hyperlipidemia. Continue statin. --DM2 with neuropathy. BS monitoring with sliding scale insulin. Continue gabapentin for neuropathy. --Nicotine dependence. Patient placed on nicotine patch. Will be counseled on tobacco cessation prior to discharge. --Leukocytosis. Likely reactive. trending down. -- Rheumatoid arthritis. Continue current pain medication regimen. --Hypertension. We will allow for permissive hypertention pending evaluation by neurologist. We will continue to monitor blood pressure levels. --DVT prophylaxis with Lovenox subQ. Discharge Plan: Home Plan to discharge in: Possibly in 1-2 days. Physician Review: Patient Assessed, Agree with Above Assessment and Plan
[2022-09-26] MEDS: NICOTINE 14 MG/PAT TD SCH (09:00)
[2022-09-26] MEDS ORDERED: POTASSIUM 25 MEQ EFFERV TAB PO ONE (09:00)
[2022-09-26] MEDS: ENOXAPARIN 40 MG/0.4 ML SQ SCH (09:12)
[2022-09-26] MEDS: GABAPENTIN 300 MG CAP PO SCH ×2 (09:13→20:48)
[2022-09-26] MEDS: ASPIRIN 81 MG CHEWABLE TABLET PO SCH (09:13)
[2022-09-26] MEDS ORDERED: BISACODYL E.C. 5 MG TAB PO ONE (10:20)
[2022-09-26] MEDS: ATORVASTATIN 40 MG TAB PO SCH (20:48)
[2022-09-27] MEDS: HYDROCODONE/APAP 5/325 MG TAB PO PRN ×3 (05:52→21:57)
[2022-09-27 06:43] LABS: Potassium 3.4 mEq/L (3.5-5.1)
[2022-09-27] MEDS: ASPIRIN 81 MG CHEWABLE TABLET PO SCH (09:11)
[2022-09-27] MEDS: NICOTINE 14 MG/PAT TD SCH (09:11)
[2022-09-27] MEDS: ENOXAPARIN 40 MG/0.4 ML SQ SCH (09:11)
[2022-09-27] MEDS: INSULIN -REGULAR HUMAN 50 UNIT/0.5 ML ML SQ SCH ×4 (09:12→21:50)
[2022-09-27] MEDS: GABAPENTIN 300 MG CAP PO SCH (09:13)
[2022-09-27 10:53] LABS: Albumin 2.7 g/dL (3.4-5.0); Bilirubin Total 0.6 mg/dL (0.2-1.0); C-Reactive Protein 25.3 mg/L (<3.00); Potassium 3.8 mEq/L (3.5-5.1); Protein, Total 7.2 g/dL (6.4-8.2)
[2022-09-27] MEDS: ATORVASTATIN 40 MG TAB PO SCH (21:48)
[2022-09-28] MEDS: METHYLPREDNISOLONE 125 MG INJ IV SCH ×4 (03:14→16:52)
[2022-09-28] MEDS: HYDROCODONE/APAP 5/325 MG TAB PO PRN ×3 (03:18→16:55)
[2022-09-28 06:55] LABS: Absolute Lymphocytes (CBC) 1.6 K/uL (0.7-4.9); Hematocrit 40.9 % (36.0-45.0); MCV 90.2 fL (80-100); MPV 7.5 fL (7.6-11.3); RBC Red Blood Cell Count 4.53 M/uL (3.86-4.86)
[2022-09-28 07:02] LABS: Protime INR 1.02
[2022-09-28 07:40] LABS: Magnesium 1.9 mg/dL (1.6-2.4); Phosphorus 4.3 mg/dL (2.5-4.9); Potassium 4.2 mEq/L (3.5-5.1); Thyroid Stimulating Hormone 1.29 uIU/mL (0.358-3.740)
[2022-09-28] MEDS: INSULIN -REGULAR HUMAN 50 UNIT/0.5 ML ML SQ SCH ×4 (08:39→20:06)
[2022-09-28] MEDS: NICOTINE 14 MG/PAT TD SCH (08:39)
[2022-09-28] MEDS: ASPIRIN 81 MG CHEWABLE TABLET PO SCH (08:39)
[2022-09-28] MEDS: GABAPENTIN 300 MG CAP PO SCH ×2 (08:39→19:48)
[2022-09-28] MEDS: ENOXAPARIN 40 MG/0.4 ML SQ SCH (08:39)
[2022-09-28 08:42] LABS: Platelet Estimate ADEQ
[2022-09-28 08:44] LABS: Blood Morphology Comment NOT SEEN (NOT SEEN)
[2022-09-28] MEDS: ATORVASTATIN 40 MG TAB PO SCH (19:47)
[2022-09-28] MEDS: TRAMADOL HCL 50 MG TAB PO PRN (19:48)
[2022-09-29] MEDS: METHYLPREDNISOLONE 125 MG INJ IV SCH ×4 (00:18→16:45)
[2022-09-29] MEDS: HYDROCODONE/APAP 5/325 MG TAB PO PRN ×3 (08:49→20:44)
[2022-09-29] MEDS: ENOXAPARIN 40 MG/0.4 ML SQ SCH (08:49)
[2022-09-29] MEDS: INSULIN -REGULAR HUMAN 50 UNIT/0.5 ML ML SQ SCH ×4 (08:49→20:43)
[2022-09-29] MEDS: GABAPENTIN 300 MG CAP PO SCH ×2 (08:50→20:43)
[2022-09-29] MEDS: NICOTINE 14 MG/PAT TD SCH (08:50)
[2022-09-29] MEDS: ASPIRIN 81 MG CHEWABLE TABLET PO SCH (08:50)
[2022-09-29] MEDS: TRAMADOL HCL 50 MG TAB PO PRN (18:50)
[2022-09-29] MEDS: ATORVASTATIN 40 MG TAB PO SCH (20:43)
[2022-09-30] MEDS: METHYLPREDNISOLONE 125 MG INJ IV SCH ×3 (00:27→12:00)
[2022-09-30 03:52] LABS: Magnesium 2.1 mg/dL (1.6-2.4); Phosphorus 3.3 mg/dL (2.5-4.9); Potassium 4.4 mEq/L (3.5-5.1)
[2022-09-30] MEDS: GABAPENTIN 300 MG CAP PO SCH ×2 (09:41→21:11)
[2022-09-30] MEDS: ASPIRIN 81 MG CHEWABLE TABLET PO SCH (09:41)
[2022-09-30] MEDS: HYDROCODONE/APAP 5/325 MG TAB PO PRN ×3 (09:41→21:11)
[2022-09-30] MEDS: ENOXAPARIN 40 MG/0.4 ML SQ SCH (09:41)
[2022-09-30] MEDS: INSULIN -REGULAR HUMAN 50 UNIT/0.5 ML ML SQ SCH ×4 (09:42→21:12)
[2022-09-30] MEDS: NICOTINE 14 MG/PAT TD SCH (09:42)
[2022-09-30] MEDS: TRAMADOL HCL 50 MG TAB PO PRN (13:05)
[2022-09-30] MEDS: ATORVASTATIN 40 MG TAB PO SCH (21:11)
[2022-10-01] MEDS: HYDROCODONE/APAP 5/325 MG TAB PO PRN ×3 (01:06→15:12)
[2022-10-01 06:32] LABS: Absolute Lymphocytes (CBC) 5.1 K/uL (0.7-4.9); Hematocrit 38.7 % (36.0-45.0); Lymphocytes % 39.8 % (15.3-44.8); MCV 90.1 fL (80-100); MPV 7.5 fL (7.6-11.3)
[2022-10-01 06:50] LABS: Albumin 2.3 g/dL (3.4-5.0); Bilirubin Total 0.3 mg/dL (0.2-1.0); Protein, Total 6.1 g/dL (6.4-8.2)
[2022-10-01] MEDS: INSULIN -REGULAR HUMAN 50 UNIT/0.5 ML ML SQ SCH ×3 (07:30→16:32)
[2022-10-01] MEDS: ENOXAPARIN 40 MG/0.4 ML SQ SCH (08:37)
[2022-10-01] MEDS: NICOTINE 14 MG/PAT TD SCH (08:37)
[2022-10-01] MEDS: GABAPENTIN 300 MG CAP PO SCH (08:37)
[2022-10-01] MEDS: ASPIRIN 81 MG CHEWABLE TABLET PO SCH (08:37)
--- NOTE | 2022-10-01 12:09 | RAD REPORT ---
EXAM DESCRIPTION: MRI - Brain Wo Cont - 10/01/2022 10:30 am CLINICAL HISTORY: AMS Left sided weakness HX CVA COMPARISON: Brain MRI 09/20/2022. Head CT and CT angiogram 09/24/2022 TECHNIQUE: Multiplanar multisequence MRI of the brain performed without IV contrast. FINDINGS: Motion artifact somewhat limits evaluation, despite attempts at repeat imaging. Right basal ganglia foci of diffusion restriction, suggestive of subacute ischemia, stable. No other abnormalities on diffusion-weighted images. No evidence of acute intracranial hemorrhage or abnormal extra-axial fluid collections. Mild diffuse parenchymal volume loss. Ventricular caliber otherwise within normal for age. Midline st ructures are unremarkable. Confluent subcortical and deep white matter T2/FLAIR hyperintensities, nonspecific, but stable in pat tern, and suggestive of chronic small vessel ischemic changes. No mass effect or midline shift. Major vascular flow voids are preserved. Mastoid air cells and paranasal sinuses are clear. IMPRESSION: Stable right basal ganglia subacute infarct. No evidence of hemorrhagic transformation. No other acute intracranial process. Stable extent of nonspecific white matter signal abnormalities, most suggestive of chronic small vess el ischemic changes
[2022-10-01 13:49] VITALS: O2SAT 100
[2022-10-01 16:34] VITALS: BP 139/83; TEMP 97.6
--- NOTE | 2022-10-02 07:18 | EKG ---
Test Date: 2022-09-26 Test Time: 20:00:01 Rn L And D: REG MEASUREMENT RESULTS: Intervals: Rate: 95 MO: 136 QRSD: 72 QT: 366 QTc: 459 Ward: P: MO: 136 QRS: 40 T: -65 INTERPRETIVE STATEMENTS: Sinus rhythm with premature atrial complexes with aberrant conduction ST & T wave abnormality, consider inferior ischemia ST & T wave abnormality, consider anterolateral ischemia Abnormal ECG Compared to ECG 09/19/2022 22:46:32 Atrial premature complex(es) now present Aberrant conduction of supraventricular beat(s) now present ST (T wave) deviation now present Possible ischemia now present T-wave abnormality no longer present Electronically Signed On 10-02-22 07:08:13 CDT by Jimmy Hopper
== END 2022-10-01 18:08 | DRG 65 ==
LOC: ER 14:41 → ERHOLD 18:04 → 2ND 20:18
PROVIDERS: ADMIT Internal Medicine Nephrology; ATTEND Hospitalist
DX: I63.9 Cerebral infarction, unspecified (principal); G81.94 Hemiplegia, unspecified affecting left nondominant side; G93.40 Encephalopathy, unspecified; E11.40 Type 2 diabetes mellitus with diabetic neuropathy, unspecified; M06.9 Rheumatoid arthritis, unspecified; F12.99 Cannabis use, unspecified with unspecified cannabis-induced disorder; F17.210 Nicotine dependence, cigarettes, uncomplicated; I10 Essential (primary) hypertension; R29.714 NIHSS score 14; D72.829 Elevated white blood cell count, unspecified
CPT/HCPCS: 36415; 70450; 70496; 70498; 70551; 71045; 80048; 80053; 80061; 80076; 82533; 82550; 82607; 82947; 83540; 83690; 83735; 84100; 84439; 84443; 84484; 85025; 85044; 85610; 85730; 86140; 92523; 93005; 97110; 97112; 97116; 97129; 97140; 97161; 97165; 97530; 99285; J1650; J1815; J2930; Q9967